=== PATIENT | male | born 1985 | race Caucasian/White ===

== ENCOUNTER 2021-08-04 04:23 | Inpatient (IN) ==
[2021-08-04] MEDS ORDERED: MoRPHine SULFATE 4 MG/ML 1 ML CARP\\VIAL IV STA (05:08)
[2021-08-04] MEDS ORDERED: ACETAMINOPHEN 1,000 MG/100 ML VIAL IV STA (05:08)
[2021-08-04] MEDS ORDERED: PROCHLORPERAZINE 1 ML IV ONE (05:08)
[2021-08-04] MEDS ORDERED: diphenhydrAMINE 50 MG/ML VIAL IV STA (05:08)
[2021-08-04] MEDS ORDERED: SODIUM CHLORIDE 0.9% 1000ML 1,000 ML IV SCH (05:15)
[2021-08-04 05:38] LABS: Albumin Globulin Ratio 0.8 (0.9-2); Albumin Level 3.4 gm/dl (3.4-5.0); BUN Creatinine Ratio 12.5 (10-20); Bilirubin,Total 0.3 mg/dl (0.2-1); Calcium 8.9 mg/dl (8.5-10.1); Creatinine Clr Calc Pharmacy 132.8 ml/min; Est GFR (African American) 119.7 ml/min; Est GFR (Non-African American) 103.3 ml/min; Globulin 4.5 gm/dl (2.5-4.0); Potassium 3.6 mmol/L (3.5-5.1); Total Protein 7.9 gm/dl (6.4-8.2)
[2021-08-04 06:14] LABS: Lyme Ab IgM w/WB Rflx Negative (Negative)
[2021-08-04 06:19] LABS: Lyme Ab IgG w/WB Rflx Positive (Negative)
--- NOTE | 2021-08-04 06:57 | CT Scan Report ---
CT head/brain wo con CLINICAL HISTORY: 36 years-old Male with Headache. Acute headache TECHNIQUE: Multiple axial CT images of the head were obtained without contrast. A dose lowering tech nique was utilized adhering to the principles of ALARA. CT DOSE: 729.78 mGycm COMPARISON: None. FINDINGS: No acute intracranial hemorrhage, midline shift, intracranial mass, hydrocephalus, territorial ischem ia or abnormal extra-axial collection. The calvarium is intact. Large bilateral mastoid effusions. Fluid is also noted within the middle ea r cavities bilaterally. IMPRESSION: 1. No acute intracranial abnormality. 2. Large bilateral mastoid and middle ear effusions. ACT 112: Negative or not required by law. The above report was generated using voice recognition software. It may contain grammatical, syntax o r spelling errors. Electronically signed by: Kaleb Pollock M.D. 08/04/2021 6:55 AM
[2021-08-04 07:01] LABS: Basophils # (auto) 0.02 K/uL (0-0.2); Basophils % (auto) 0.1 %; Hematocrit (blood only) 38.7 % (42-52); Hemoglobin 13.7 g/dL (14.0-18.0); Immature Granulocytes # (auto) 0.04 K/uL (0.00-0.02); Immature Granulocytes % (auto) 0.2 %; Lymphocytes # (auto) 0.85 K/uL (1.2-3.4); Lymphocytes % (auto) 5.3 %; Mean Corpuscular Hgb Conc 35.4 g/dL (32-36); Mean Corpuscular Volume 81.8 fL (80-100); Mean Platelet Volume 8.4 fL (7.4-10.4); Monocytes % (auto) 3.7 %; Neutrophils # (auto) 14.61 K/uL (1.4-6.5); Neutrophils % (auto) 90.7 %; Platelet Count 165 K/uL (130-400); RDW Coefficient of Variation 13.7 % (11.5-14.5); RDW Standard Deviation 41.6 fL (36.4-46.3); Red Blood Count 4.73 M/uL (4.7-6.1); White Blood Count 16.12 K/uL (4.8-10.8)
[2021-08-04] MEDS ORDERED: cefTRIAXone SODIUM 2,000 MG/70 ML BAG IV STA (07:01)
[2021-08-04] MEDS ORDERED: VANCOMYCIN HCL 2,250 MG in SODIUM CHLORIDE 0.9% 500 ML IV ONE (09:17)
[2021-08-04] MEDS ORDERED: VANCOMYCIN CONSULT ACTIVE PRN (09:17)
[2021-08-04] MEDS ORDERED: SODIUM CHLORIDE 0.9% 1000ML 1,000 ML IV ONE ×2 (09:20→10:44)
--- NOTE | 2021-08-04 09:30 | Emergency Department Note ---
ED Visit Note ED Physician Sign Out Note: 36 yr old male with reported baseline intellectual disability with chronic ear effusions and episode meningitis treated at [facility] last year. Rapidly worsening headache and illness brought him to ED last night with mother. Initially signed out by evening team to Contreras Vasquez PA-C pending waking up and going home following medications. Reportedly initial work-up was concerning for lyme infection and given Rocephin 2gm IV along with morphine/compazine/benadryl. Did have labs showing WBC [address] head which was reported negative. Brought to my attention by NICOLE Vasquez as patient febrile and confused at around 9:30am. I immediately went to go evaluate patient. On exam he is al tered and mother notes not acting himself. Did just receive Compazine, morphine and benadryl so discussed with mother the fact difficult to determine status with meds on board. Unable to assess for nuchal rigidity nor photophobia. He is not very cooperative however and continues to role any time I attempt to position him. He appears septic and I have high suspicion for Meningitis. He had already received 2gm IV Rocephin by earlier provider but as now febrile I feel initiating sepsis work-up indicated. I requested 2nd IV, 2L NSS bolus, Blood cultures, Lactate, procalcitonin, and IV Vancomycin. Further added Acyclovir given initial concerns inability to safely get LP in ED. Furthermore given effusions and acute meningitis, will start Steroids despite rocephin having already been started. I will note that on my initial evaluation he was a bit too agitated to do LP safely without sedation thus initially held off. The plan was to treat as meningitis and get LP by [facility] under anesthesia. Unfortunately unable to place in ICU until LP is completed. Called [facility] but they are unable to do LP for several hours due to other critical procedures. I did discuss patient at bedside with Hospitalist, and given worsening crackles in lungs went ahead with cxr with no acute findings. Reviewed with nursing and Hospitalist and will start BiPAP and at same time given ativan to calm him down some. I was able to keep him comfortable enough that he would stay still with right lateral decubitus position as long as nursing held him in place. LP complete by me though I will note there was significant difficultly due to inability for patient to fully arch back and his low back body habitus, but CSF was obtained on first attempt. CSF clearly cloudy and infected by visual inspection, and we continued with Sepsis/Meningitis management, including further IV fluids. Attempted to contact ICU without success thus re-discussed with Hospitalist, who will plan on placing in ICU due to severity of illness. I did re-evaluated him after initial fluid bolus, and due to continued dry ordered further IV fluids. Repeat Lactate was ordered for continued management and evaluation (which retur beverly higher, though already at ICU thus I made hospitalist aware). Continuation of fluids and close monitoring and he is tolerating BiPAP other than a bit somnolent following ativan. Sats good and he was transferred to ICU for further management. Procedure: Lumbar Puncture Indication: Sepsis with concern Meningitis. I was unable to get verbal consent as patient is too altered and I am unable to get in contact with mother who had been in the room just prior to this. However, after discussion with multiple providers, the risks do not outweigh the benefits of determining if this is truly meningitis. At this time, the risks of the procedure are less than the risks of NOT performing the procedure. A time out was taken and the correct patient and site identified. The patient was placed in the right lateral decubitus position and the back was prepped with betadine and draped in the standard fashion. The L3 intervertebral space was identified, anesthetized locally with 1% lidocaine without epinephrine, and the spinal needle was inserted through the skin with the bevel parallel to the dural fibers. The needle was carefully advanced into the lumbar cistern and 4 tubes of cloudy CSF was obtained. The stylet was replaced and the needle was removed. The patient was placed in the supine position. The patient tolerated the procedure well and there were no complications. Critical Care: I have personally spent 90 minutes of critical care time in the direct management of this patient. AMS and Sepsis secondary to strep pne meningitis. This was a life/limb threatening event. This 90 minutes is in excess of all separately billable procedures. Nithin Barone MD
[2021-08-04] MEDS ORDERED: SODIUM CHLORIDE 0.9% 1000ML 2,000 ML IV ONE (09:32)
[2021-08-04] MEDS ORDERED: dexAMETHasone**PF** 10 MG/ML VIAL IV ONE (09:50)
[2021-08-04] MEDS ORDERED: ACYCLOVIR SOD IV STA (09:53)
[2021-08-04] MEDS ORDERED: DEXTROSE 5% IV STA (09:53)
--- NOTE | 2021-08-04 10:20 | History & Physical Report ---
Date of Service August 04, 2021 Assessment & Plan (1) Meningitis: Plan: - Admit to PCU - He is difficult to perform LP on at bedside due to intellectual disability and scoliosis of the spine. If warranted he would likely require sedation and IR procedure for LP per the ER. Possibly could trial ativan prior to LP. Will place on bipap with acute respiratory distress of increased tachypnea, diaphoresis, lethargy. It is also possible that this would be an aseptic tap as he had received Rocephin prior to procedure. Follow blood cultures however got rocephin before these were drawn as well. - Order LP - discussed with ER who is willing to perform procedure with sedation of the patient - CT head reviewed showing large bilateral mastoid and middle ear effusions. - CXR is showing minimal right basilar opacity. This favors atelectasis. An infectious process could appear similar. - concern for worsening respiratory status and possible pneumonia. - Continue rocephin, vancomycin, acyclovir and decadron - Discussed with Dr. Pickering with ICU - obtain LP, continue supportive therapy, at this time not accepted to ICU. Will maintain communication and re-eval if worsening presentation. Appreciate recs. - Noted leukocytosis with left shift - Febrile in the ER at 39.5 - COVID-19 negative on admission (2) Acute respiratory distress: Plan: - Obtain ABG, lactic acid elevated at 3.8, repeat pending - Place pt on bipap - As above (3) Lyme disease: Plan: - Positive IgM on titre, negative IgM - No hx of treatment of such, continue treatment as above - LP pending (4) Headache: Plan: - As above. (5) Acute effusion of both middle ears: Plan: - Treatment as above - hx of chronic ear infections per sign out from ER - Unknown previous hospital course for meningitis. (6) Intellectual disability: Plan: - Chronic. DVT ppx: teds, heparin subq CODE: Full - I have attempted to contact the patients mother via phone at least 3 times this morning and unable to reach her or leave a voicemail on her phone. No other number listed in the chart. Will attempt to reach her again later today. Dispo: From home, likely to remain in hospital x 2 days History of Present Illness Chief Complaint: Head pain Primary Care Provider: NO PCP This is a 36 yo M with PMHx of intellectual disability and hx of meningitis about 1 year ago, who presents to the hospital with his mother who is no longer at bedside, with complaints of head pain. Pt is unable to provide history based on lethargy and tachypnea. He is diaphoretic, RR of 45 at bedside, sats are in low 90s. BP elevated at 160s/80s. He cannot provide any history or ROS. Lyme titre is noted to be positive on admission. WBC is elevated at 16 K, with a left shift, febrile at 39.5 since being here, but was not febrile at home per report from ER. Started on rocephin initially overnight for Lymes and blood culture were drawn after antibiotic given. CT of the head shows large bilateral mastoid effusions and middle ear effusion--with presentation it is concerning for meningitis. Unknown if viral versus bacterial at this time. Right lung treviño with coarse rales throughout concerning for pneumonia. Will obtain LP with sedation due to intellectual disability. Attempted to speak with mother via phone, did not answer on 3 different phone call attempts, and there is not a voice mail set up to leave a message. Allergies Allergy/AdvReac Type Severity Reaction Status Date / Time No Known Allergies Allergy Verified 08/04/21 13:27 Home Medications Medication Instructions Recorded Confirmed Type doxycycline hyclate 100 mg capsule 100 mg PO BID 28 Days #56 cap 08/04/21 Rx Past Med/Surg History Social History Smoking Status: Current every day smoker Tobacco Type: Cigarettes Current Living Situation: Family Feels Safe at Home: Yes Review of Systems Review of Systems: Unobtainable due to cognitive status Physical Exam Physical Exam: General: lethargic, arouses slightly with loud speech and sternal rub, diaphoretic, mild distress, obese with BMI 33.8 Head: Normocephalic, atraumatic ENT: PERRL, EOMI, no pharyngeal exudate, mucous membranes moist Chest: Tachypneic with RR 45 with O2 sats 94% at bedside, on room air, coarse rales on R lung treviño, left is essentially clear. Cardiac: +tachycardic with HR 95, no murmur, no JVD, normal peripheral pulses, good capillary refill Abdominal: NABS x 4 quadrants, soft, nondistended, nontender to palpation, no rebound or guarding Extremities: Normal inspection, no peripheral edema or erythema, calfs nontender to palpation Psych: Unable to assess due to lethargy Neuro: Lethargic, not alert or awake, arouses slightly with loud speech and sternal rub Results & Data Results & Data ([facility]) Vital Signs (Past 12 Hours) Vital Signs Temp Pulse Pulse Resp BP BP Pulse Ox 08/04/21 09:57 67 16 143/68 H 95 08/04/21 08:42 39.5 C H 80 26 H 149/65 H 97 08/04/21 07:10 94 H 20 160/71 H 95 08/04/21 06:15 96 H 20 181/81 H 97 08/04/21 04:28 37.1 C 84 22 148/79 H 98 Laboratory Results 08/04/21 08/04/21 08/04/21 09:54 09:54 06:47 WBC RBC Hgb Hct MCV MCH MCHC RDW Std Deviation RDW Coeff of Abel Plt Count MPV Immature Gran % (Auto) Neut % (Auto) Lymph % (Auto) [place] % (Auto) Eos % (Auto) Baso % (Auto) Neut # (Auto) Lymph # (Auto) [place] # (Auto) Eos # (Auto) Baso # (Auto) Immature Gran # (Auto) Absolute Nucleated RBC Nucleated RBC % (auto) Neutrophils % (Manual) Band Neutrophils % Lymphocytes % (Manual) Prolymphocyte % Reactive Lymphs % (Man) Monocytes % (Manual) Eosinophils % (Manual) Basophils % (Manual) Metamyelocytes % (Man) Myelocytes % (Man) Promyelocytes % (Man) Blast Cells % (Manual) Plasma Cell % (Manual) Other Cells % Nucleated RBC % Neutrophils # (Manual) Band Neutrophils # Total Absolute Neuts Lymphocytes # (Manual) Prolymphocyte # Reactive Lymphs # Total Abs Lymphocytes Monocytes # (Manual) Eosinophils # (Manual) Basophils # (Manual) Metamyelocytes # (Man) Myelocytes # (Manual) Promyelocytes # (Man) Blast Cells # (Man) Plasma Cell # (Manual) Other Cells # Nucleated RBCs # (Man) Hypersegmented Neuts Hyposegmented Neuts Hypogranular Neuts Large Granular Lymphs # Lrg Granular Lymphs Hairy Cells Smudge Cells Toxic Granulation Toxic Vacuolation Dohle Bodies Ruben Rods Platelet Estimate Hypogranular Platelets Clumped Platelets Giant Platelets Platelet Satelliting RBC Morphology Polychromasia Hypochromasia Poikilocytosis Basophilic Stippling Anisocytosis Microcytosis Macrocytosis Spherocytes Pappenheimer Bodies Sickle Cells Target Cells Tear Drop Cells Ovalocytes Stomatocytes [place] Bodies Echinocytes Acanthocytes (Spur) Rouleaux RBC Agglutinates Schistocytes RBC Morph Comment Sezary Cell Sodium Potassium Chloride Carbon Dioxide Anion Gap BUN Creatinine Est Cr Clr Drug Dosing Est GFR ( Amer) Est GFR (Non-Af Amer) BUN/Creatinine Ratio Glucose Lactate 3.8 H* Calcium Total Bilirubin AST ALT Alkaline Phosphatase Total Creatine Kinase 33 L Total Protein Albumin Globulin Albumin/Globulin Ratio Procalcitonin 0.10 Specimen Hemolysis Lyme Disease IgG Ab Lyme Disease IgM Ab COVID-19 Eval Order SARS-CoV-2 (PCR) 08/04/21 08/04/21 08/04/21 06:40 05:38 05:38 WBC 16.12 H RBC 4.73 Hgb 13.7 L Hct 38.7 L MCV 81.8 MCH 29.0 MCHC 35.4 RDW Std Deviation 41.6 RDW Coeff of Abel 13.7 Plt Count 165 MPV 8.4 Immature Gran % (Auto) 0.2 Neut % (Auto) 90.7 Lymph % (Auto) 5.3 [place] % (Auto) 3.7 Eos % (Auto) 0.0 Baso % (Auto) 0.1 Neut # (Auto) 14.61 H Lymph # (Auto) 0.85 L [place] # (Auto) 0.60 H Eos # (Auto) 0.00 Baso # (Auto) 0.02 Immature Gran # (Auto) 0.04 H Absolute Nucleated RBC Nucleated RBC % (auto) Neutrophils % (Manual) Band Neutrophils % Lymphocytes % (Manual) Prolymphocyte % Reactive Lymphs % (Man) Monocytes % (Manual) Eosinophils % (Manual) Basophils % (Manual) Metamyelocytes % (Man) Myelocytes % (Man) Promyelocytes % (Man) Blast Cells % (Manual) Plasma Cell % (Manual) Other Cells % Nucleated RBC % Neutrophils # (Manual) Band Neutrophils # Total Absolute Neuts Lymphocytes # (Manual) Prolymphocyte # Reactive Lymphs # Total Abs Lymphocytes Monocytes # (Manual) Eosinophils # (Manual) Basophils # (Manual) Metamyelocytes # (Man) Myelocytes # (Manual) Promyelocytes # (Man) Blast Cells # (Man) Plasma Cell # (Manual) Other Cells # Nucleated RBCs # (Man) Hypersegmented Neuts Hyposegmented Neuts Hypogranular Neuts Large Granular Lymphs # Lrg Granular Lymphs Hairy Cells Smudge Cells Toxic Granulation Toxic Vacuolation Dohle Bodies Ruben Rods Platelet Estimate Hypogranular Platelets Clumped Platelets Giant Platelets Platelet Satelliting RBC Morphology Polychromasia Hypochromasia Poikilocytosis Basophilic Stippling Anisocytosis Microcytosis Macrocytosis Spherocytes Pappenheimer Bodies Sickle Cells Target Cells Tear Drop Cells Ovalocytes Stomatocytes [place] Bodies Echinocytes Acanthocytes (Spur) Rouleaux RBC Agglutinates Schistocytes RBC Morph Comment Sezary Cell Sodium Potassium Chloride Carbon Dioxide Anion Gap BUN Creatinine Est Cr Clr Drug Dosing Est GFR ( Amer) Est GFR (Non-Af Amer) BUN/Creatinine Ratio Glucose Lactate Calcium Total Bilirubin AST ALT Alkaline Phosphatase Total Creatine Kinase Total Protein Albumin Globulin Albumin/Globulin Ratio Procalcitonin Specimen Hemolysis Lyme Disease IgG Ab Lyme Disease IgM Ab COVID-19 Eval Order Covid19 at [facility] SARS-CoV-2 (PCR) NEGATIVE 08/04/21 08/04/21 08/04/21 04:56 04:56 04:56 WBC Cancelled RBC Cancelled Hgb Cancelled Hct Cancelled MCV Cancelled MCH Cancelled MCHC Cancelled RDW Std Deviation Cancelled RDW Coeff of Abel Cancelled Plt Count Cancelled MPV Cancelled Immature Gran % (Auto) Cancelled Neut % (Auto) Cancelled Lymph % (Auto) Cancelled [place] % (Auto) Cancelled Eos % (Auto) Cancelled Baso % (Auto) Cancelled Neut # (Auto) Cancelled Lymph # (Auto) Cancelled [place] # (Auto) Cancelled Eos # (Auto) Cancelled Baso # (Auto) Cancelled Immature Gran # (Auto) Cancelled Absolute Nucleated RBC Cancelled Nucleated RBC % (auto) Cancelled Neutrophils % (Manual) Cancelled Band Neutrophils % Cancelled Lymphocytes % (Manual) Cancelled Prolymphocyte % Cancelled Reactive Lymphs % (Man) Cancelled Monocytes % (Manual) Cancelled Eosinophils % (Manual) Cancelled Basophils % (Manual) Cancelled Metamyelocytes % (Man) Cancelled Myelocytes % (Man) Cancelled Promyelocytes % (Man) Cancelled Blast Cells % (Manual) Cancelled Plasma Cell % (Manual) Cancelled Other Cells % Cancelled Nucleated RBC % Cancelled Neutrophils # (Manual) Cancelled Band Neutrophils # Cancelled Total Absolute Neuts Cancelled Lymphocytes # (Manual) Cancelled Prolymphocyte # Cancelled Reactive Lymphs # Cancelled Total Abs Lymphocytes Cancelled Monocytes # (Manual) Cancelled Eosinophils # (Manual) Cancelled Basophils # (Manual) Cancelled Metamyelocytes # (Man) Cancelled Myelocytes # (Manual) Cancelled Promyelocytes # (Man) Cancelled Blast Cells # (Man) Cancelled Plasma Cell # (Manual) Cancelled Other Cells # Cancelled Nucleated RBCs # (Man) Cancelled Hypersegmented Neuts Cancelled Hyposegmented Neuts Cancelled Hypogranular Neuts Cancelled Large Granular Lymphs Cancelled # Lrg Granular Lymphs Cancelled Hairy Cells Cancelled Smudge Cells Cancelled Toxic Granulation Cancelled Toxic Vacuolation Cancelled Dohle Bodies Cancelled Ruben Rods Cancelled Platelet Estimate Cancelled Hypogranular Platelets Cancelled Clumped Platelets Cancelled Giant Platelets Cancelled Platelet Satelliting Cancelled RBC Morphology Cancelled Polychromasia Cancelled Hypochromasia Cancelled Poikilocytosis Cancelled Basophilic Stippling Cancelled Anisocytosis Cancelled Microcytosis Cancelled Macrocytosis Cancelled Spherocytes Cancelled Pappenheimer Bodies Cancelled Sickle Cells Cancelled Target Cells Cancelled Tear Drop Cells Cancelled Ovalocytes Cancelled Stomatocytes Cancelled [place] Bodies Cancelled Echinocytes Cancelled Acanthocytes (Spur) Cancelled Rouleaux Cancelled RBC Agglutinates Cancelled Schistocytes Cancelled RBC Morph Comment Cancelled Sezary Cell Cancelled Sodium 137 Potassium 3.6 Chloride 107 Carbon Dioxide 25 Anion Gap 5.0 BUN 12 Creatinine 0.95 Est Cr Clr Drug Dosing 132.8 Est GFR ( Amer) 119.7 Est GFR (Non-Af Amer) 103.3 BUN/Creatinine Ratio 12.5 Glucose 131 H Lactate Calcium 8.9 Total Bilirubin 0.3 AST 13 L ALT 13 Alkaline Phosphatase 86 Total Creatine Kinase Total Protein 7.9 Albumin 3.4 Globulin 4.5 H Albumin/Globulin Ratio 0.8 L Procalcitonin Specimen Hemolysis Lyme Disease IgG Ab Positive A Lyme Disease IgM Ab Negative COVID-19 Eval Order SARS-CoV-2 (PCR) Diagnostic Findings Head CT 08/04/21 05:08 CT head/brain wo con CLINICAL HISTORY: 36 years-old Male with Headache. Acute headache TECHNIQUE: Multiple axial CT images of the head were obtained without contrast. A dose lowering technique was utilized adhering to the principles of ALARA. CT DOSE: 729.78 mGycm COMPARISON: None. FINDINGS: No acute intracranial hemorrhage, midline shift, intracranial mass, hydrocephalus, territorial ischemia or abnormal extra-axial collection. The calvarium is intact. Large bilateral mastoid effusions. Fluid is also noted within the middle ear cavities bilaterally. IMPRESSION: 1. No acute intracranial abnormality. 2. Large bilateral mastoid and middle ear effusions. ACT 112: Negative or not required by law. The above report was generated using voice recognition software. It may contain grammatical, syntax or spelling errors. Electronically signed by: Kaleb Pollock M.D. 08/04/2021 6:55 AM Chest X-Ray 08/04/21 10:37 XR chest 1V portable CLINICAL HISTORY: Shortness of breath. COMPARISON STUDY: No previous studies for comparison. FINDINGS: Lung volumes are normal. There is minimal right basilar opacity. There is no pneumothorax or pleural effusion. Cardiac size is normal. Mediastinal contours are normal. There is no evidence for pulmonary edema. IMPRESSION: Minimal right basilar opacity. This favors atelectasis. An infectious process could appear similar. ACT 112: Negative or not required by law. Electronically signed by: Arjun Jeffries M.D. 08/04/2021 11:03 AM Code Status & VTE Plan Code Status Full code Supervising Physician Co-Signing Physician Notes Attending Addendum: care coordinated with DL Kern please refer to her notes for full details, I agree with her notes patient seen and examined, records reviewed by myself as well on exam, patient seen resting in bed, not in distress, on Bipap not answering questions, eyes mostly closed but does move around in bed no signs of respiratory distress on Bipap no other symptoms VS noted and reviewed oriented x 0, not in distress, breathing with no effort nor accessory muscle use tachycardic, regular rhythm, no murmurs (+) rales on the right base, clear on the left non distended, soft, nontender no bipedal edema, erythema, warmth no neuro deficits WBC 16.12 Hg 13.7 Crea 0.95 ASSESSMENT AND PLAN SEVERE SEPSIS METABOLIC ENCEPHALOPATHY ACUTE MENINGITIS, STREP PNEUMONIAE POSSIBLE OTITIS MEDIA, MASTOIDITIS - s/p Lumbar Puncture - sepsis protocol - ff up CSF, Blood cultures - on Vanco + Ceftriaxone Dexamethasone POSSIBLE RIGHT SIDED PNEUMONIA - on Bipap - continue antibiotics as above POSSIBLE LYME DISEASE - ff up Lyme test other diagnoses and plan of care as per DL Lai notes Danish Hinkle MD
--- NOTE | 2021-08-04 11:05 | XRay Report ---
XR chest 1V portable CLINICAL HISTORY: Shortness of breath. COMPARISON STUDY: No previous studies for comparison. FINDINGS: Lung volumes are normal. There is minimal right basilar opacity. There is no pneumothorax or pleural effusion. Cardiac size is normal. Mediastinal contours are normal. There is no evidence fo r pulmonary edema. IMPRESSION: Minimal right basilar opacity. This favors atelectasis. An infectious process could appe ar similar. ACT 112: Negative or not required by law. Electronically signed by: Arjun Jeffries M.D. 08/04/2021 11:03 AM
[2021-08-04] MEDS ORDERED: LORazepam 2 MG/4 ML VIAL IV STA (11:17)
[2021-08-04 11:39] LABS: Base Excess ABG -1.9 mEq/L (-9-1.8); HCO3 ABG 21 mmol/L (19-24); Oxygen Saturation ABG 96.7 % (90-95); PCO2 ABG 30 mmHg (35-46); PO2 ABG 80 mmHg (80-95); pH ABG 7.46 (7.35-7.45)
[2021-08-04 11:41] LABS: Allen Test Pos (Pos)
[2021-08-04 12:22] LABS: CSF Chemistry Tube # 2
[2021-08-04 12:40] LABS: Appearance Urine Clear (Clear); Bacteria Urine Automated 2+ (Negative); Bilirubin Urine Negative (Negative); Blood Urine 1+ (Negative); Color Urine Yellow; Glucose Urine UA Negative (Negative); Ketones Urine Negative (Negative); Leukocyte Esterase Urine 1+ (Negative); Nitrite Urine Positive (Negative); Protein Urine Negative (Negative); RBC Urine Automated 0-4 /hpf (0-4); Specific Gravity Urine 1.016 (1.000-1.030); Urobilinogen Urine Negative (Negative); pH Urine 5.5 (4.5-7.5)
[2021-08-04 12:44] LABS: CSF Glucose < 1 mg/dl (40-70)
[2021-08-04 12:49] LABS: Total Protein CSF 908.1 mg/dl (15-45)
[2021-08-04 12:55] LABS: Appearance CSF Cloudy; CSF Count Tube # 3; Color CSF Yellow
[2021-08-04 12:56] LABS: CSF Xanthrochromic No xanthochromia
[2021-08-04 12:57] LABS: Red Blood Cell CSF (A) 330 /uL (0-); Red Blood Cell CSF (B) 280 /uL (0-)
[2021-08-04 12:59] LABS: White Blood Cell CSF (A) 8500 /uL (0-5)
[2021-08-04 13:43] LABS: Cryptococcus neoformans/ga PCR Not Detected (NotDetected); Cytomegalovirus PCR Not Detected (NotDetected); Enterovirus PCR Not Detected (NotDetected); Escherichia coli K1 PCR Not Detected (NotDetected); Haemophilius influenzae PCR Not Detected (NotDetected); Herpes Simplex Virus 1 PCR Not Detected (NotDetected); Herpes Simplex Virus 2 PCR Not Detected (NotDetected); Human Herpes Virus 6 PCR Not Detected (NotDetected); Human Parechovirus PCR Not Detected (NotDetected); Listeria monocytogenes PCR Not Detected (NotDetected); Neisseria meningitidis PCR Not Detected (NotDetected); Streptococcus agalactiae PCR Not Detected (NotDetected); Varicella Zoster Virus PCR Not Detected (NotDetected)
[2021-08-04 14:00] LABS: Streptococcus pneumoniae PCR DETECTED (NotDetected)
[2021-08-04] MEDS ORDERED: ICU PROTOCOL FOR HYPERGLYCEMIA PRN (14:06)
[2021-08-04] MEDS: SODIUM CHLORIDE 0.9% 1000ML 1,000 ML IV SCH ×2 (14:06→20:19)
[2021-08-04] MEDS ORDERED: ACETAMINOPHEN 325 MG TAB PO PRN (14:06)
[2021-08-04] MEDS ORDERED: ONDANSETRON INJ 2 MG/ML 2 ML VIAL IV PRN (14:06)
--- NOTE | 2021-08-04 14:39 | Critical Care Consultation ---
Date of Consultation August 04, 2021 Assessment & Plan (1) Acute respiratory distress: Reason Critically Ill: This is a 36-year-old gentleman with a history of intellectual disability as well as previous meningitis, treated at [facility], who presented to [facility] with his mother for altered mental status and head pain, found to have laboratories and imaging concerning for S. pneumoniae meningitis. Neuro - [facility] ICU: POSITIVE Sedation: None Analgesia: Tylenol 1000mg IV q8h p.r.n., morphine 2mg IV q4h Encephalopathy * Responsive to painful stimuli on exam. * Secondary to acute bacterial meningitis and sepsis -- see ID below * Likely compounded, at present, by Ativan and morphine needed in the ED * No significant lyte or hematologic abnormalities at this time Cardiac - Tachycardia * Suspect secondary to sepsis and inflammatory state in setting of meningitis * Appearing euvolemic, lytes consistent with the same * Continue sepsis management and NSS @ 150 Respiratory - Tachypnea / Respiratory Distress / Respiratory Alkalosis * CXR revealing of a small R basilar opacity - otherwise clear * Early during presentation, developed tachypnea (up to rates of 45) without hypoxia. Put on BiPAP * ABG revealing of pH 7.46 / pCO2 30 / HCO3 21 - no gap - c/w respiratory alkalosis * Suspect likely secondary to hyperventilation in setting of pain, meningitis. * Transition to RA/NC p.r.n. from BiPAP. Pain control. Fluids. Bilateral Mastoid and Inner Ear Effusions * Appreciated, but limited, on CT-H -- AOM appreciated on exam, too * Suspect this is likely etiology of his meningitis. Unclear at this time if he may have a superimposed mastoiditis, too. * Unfortunately past medical history is largely unknown right now. Seeing as this is a recurrence, do question whether or not an immunodeficiency may be at play. * Reached out to Dr. Rodriguez, ENT, to discuss situation and need for possible procedural intervention (i.e., myringectomy or mastoid intervention). -- Obtain dedicated CT of the sinuses, non-contrast. Ordered. GI - * NPO. Will require speech evaluation prior to diet resumption, when appropriate. RENAL/LYTES - Respiratory Alkalosis - as noted above. * No acute needs otherwise. Monitor BMP. - * Berman catheter. Monitor I&Os. ENDO - * No known history of endocrinologic diseases. ICU hyperglycemia protocol. HEME - * H&H stable. Monitor. ID - Bacterial Meningitis -- PCR positive for Strep. pneumo. * Patient with known history of bacterial meningitis in the past. Unfortunately, details about this are unavailable. * Work-up revealing of the following: - Symptomatically was reporting MENENDEZ and mother said he was not acting himself. - Leukocytosis to 16, left shift. +Lactate. Tm 39.5. BPs stable. - Head CT revealing of large bilateral mastoid and middle ear effusions - LP revealing of significant leukocytosis (8500) with 99% PMNs, undetectably low glucose - BCX, UCX pending - CSF Pathogen Panel: Positive for Streptococcus pneumoniae . Negative otherwise, including cryptococcus. * ID consulted -- appreciate insight and recommendations - Will continue CFTX q12, vancomycin q12, dexamethasone 10mg q6h - Await culture/sensitivities. Recommend ENT consult. * ENT consulted, as above * Consider neurology consultation if clinical picture is deteriorating / to aid in need for serial lumbar punctures / need for drain - appreciate insight and recommendations Sepsis * Secondary to S. pneumoniae meningitis. See work-up above. Lactate peaked at 5.8, now downtrending. Good capillary refill and pulses on exam. * Has received about 5L of fluids since arriving here. UOP adequate - about 0.80mL/kg/hr. Continue NSS for now. Maintain UOP >0.5cc/kg/hr, MAP > 65, BSG ~150-180. * Continue antimicrobial therapy as above * Follow cultures INTEGUMENTARY - No acute needs at this time. LINES/IV ACCESS - PIVs intact. DVT PROPHYLAXIS - Heparin SQ Thank you for allowing us to be part of this patient's care. Please refer to Dr. Pickering's documentation for any further recommendations. (2) Intellectual disability: (3) Meningitis: (4) Headache: (5) Lyme disease: (6) Acute effusion of both middle ears: Supervising Physician Co-Signing Physician Notes Patient seen and examined. Imaging studies independently reviewed. EMR reviewed. Discussed with admitting hospitalist service, in the ER as well as with the critical care bedside nurse and family practice resident. Agree with assessment plan as noted. 36-year-old male with acute bacterial meningitis. PCR positive for strep pneumo. ID consultation is being obtained through locr. He has evidence of bilateral otitis as well as mastoiditis. Will get ID consultation. Continue high-dose Rocephin and dexamethasone. The patient was placed on BiPAP due to respiratory issues but these appear to be driven primarily by his underlying metabolic derangements. We will discontinue BiPAP and use oxygen as needed to maintain saturations. Recheck lactate and follow laboratory studies. Unclear if the patient will require serial large volume lumbar puncture or potential lumbar drain. Would be interested in infectious disease opinion on this. We will also ask neurology regarding their opinion of utility of serial drains and acute purulent bacterial meningitis. Symptomatic control of the patient's fever and headache. Patient may be at risk of obstructive hydrocephalus and will need to be monitored closely. May require serial scans. Continue to follow in the ICU. The patient is critically ill with significant possibility of clinical deterioration. We have been unable to contact family to this point but will continue to try and update them and obtain any additional history. History of Present Illness Attending Physician: Danish Hinkle MD History of Present Illness This is a 36-year-old male with a notable history of intellectual disability as well as meningitis 1 year ago who presented to the hospital initially with his mother for head pain. History is primarily obtained through chart review. Upon his arrival to the hospital, patient was noted to be lethargic, initially afebrile, and mildly hypertensive to the 140/70 range. Early throughout his course, he developed a fever to 39.5, elevated respiratory rate between 26 and 45, with oxygen saturations primarily above 90%. Due to his tachypnea, he was placed on BiPAP. His diagnostics were significant for a leukocytosis to 16 with left shift, lactate 3.8, UA with positive nitrites and leukocyte esterase. Noncontrast head CT did demonstrate large bilateral mastoid and middle ear effusions. Chest x- ray demonstrated a right-sided basilar opacity. Blood and urine cultures were drawn. Have concern for meningitis, patient also underwent urgent LP. This was revealing of cloudy, yellow CSF with profound leukocytosis (over 99% PMN), significantly elevated total protein to 910, and undetectably low glucose. CSF pathogen PCR panel sent, still pending. Lyme IgG positive. Given significant concerns for meningitis, patient was started empirically on vancomycin, acyclovir, and ceftriaxone. At the bedside, Kane is unable to cooperate with exam and resists many exam maneuvers. Unable to obtain history. Allergies Allergy/AdvReac Type Severity Reaction Status Date / Time No Known Allergies Allergy Verified 08/04/21 13:27 Home Medications Medication Instructions Recorded Confirmed Type doxycycline hyclate 100 mg capsule 100 mg PO BID 28 Days #56 cap 08/04/21 Rx Patient History Social History Smoking Status: Current every day smoker Tobacco Type: Cigarettes Feels Safe at Home: Yes Review of Systems Review of Systems: Unobtainable due to cognitive status and Unobtainable due to reduced consciousness Physical Exam Physical Exam: General: Tired and ill-appearing 36-year-old gentleman who is lying back in his hospital bed, somnolent and with occasionally twitches. He is responsive to pain, but not to voice. HEENT: NCAT. Eyes - Sclera are white, anicteric, and without injection. PERRL. Mouth - MMM with no tonsillar edema or exudates. Nose - nasal turbinates are uninflamed and without discharge. Ears - the L and R TMs appear hyperemic and mildly bulging. No TTP posterior to the auricle. No TTP (facial grimces) across the frontal/maxillary sinuses Neck - supple and without LAD. Cardiac: Tachycardic with regular rhythm; S1 and S2 present with no murmurs, rubs, or gallops. Pulmonary: Good respiratory effort with symmetric expansion of the chest. Tachypneic. No use of accessory muscles. Lungs were clear to auscultation bilaterally with no crackles or wheezes. Abdominal: Normoactive bowel sounds. Abdomen was soft, nondistended, and non- tender to palpation. Extremities: Upper and lower extremities are warm and well perfused. Radial and dorsalis pedis pulses were 2+ b/l. Capillary refill assessed in UE was < 3 sec. Neuro: Patient extremely resistant to exam. - Cranial Nerves: CN I, IX, and X - not assessed. II - PERRL. III - Corneal reflex in-tact. XII - no tongue deviation - Motor: Normal tone, without spasticity, in the upper and lower extremities. - Sensation: Unable to assess - Reflexes - Biceps 2+ b/l; patellar 3+ b/l. No clonus. Results & Data Results & Data ([facility]) Vital Signs (Past 12 Hours) Vital Signs Temp Pulse Pulse Resp BP BP Pulse Ox 08/04/21 13:05 38.6 C H 86 16 129/88 97 08/04/21 11:47 94 H 24 114/76 98 08/04/21 11:15 102 H 26 H 129/52 L 97 08/04/21 11:10 93 H 35 H 96 08/04/21 10:54 98 H 46 H 164/80 H 97 08/04/21 10:20 88 26 H 145/72 H 95 08/04/21 09:57 67 16 143/68 H 95 08/04/21 08:42 39.5 C H 80 26 H 149/65 H 97 08/04/21 07:10 94 H 20 160/71 H 95 08/04/21 06:15 96 H 20 181/81 H 97 08/04/21 04:28 37.1 C 84 22 148/79 H 98
[2021-08-04] MEDS ORDERED: ACETAMINOPHEN 1000 MG/100 ML IV IV STA (14:41)
[2021-08-04] MEDS ORDERED: MoRPHine SULFATE 2 MG/ML CARP IV STA (14:51)
--- NOTE | 2021-08-04 14:51 | Pharmacy Report ---
Pharmacy Abx Dose Short Note - Date of Service August 04, 2021 - Assessment & Plan Assessment * 36 year old M w hx of intellectual disability and a hx of meningitis 1 yr ago @ OSH admitted to ICU on 08/04 for confirmed Strep pneumo meningitis per [employer] PCR result. Currently receiving ceftriaxone 2 g IV q12, dexamethasone 10 mg IV q6h x4 days, and vancomycin per pharmacy consult * Lyme IgG positive, IgM negative with CSF Lyme PCR still pending, but less likely given positive Strep pneumo. At any rate, ceftriaxone does have appropriate coverage for Lyme meningitis * ID consulted Vancomycin * Will be aggressive 2nd severity of illness. * Anticipate ability to discontinue if/when CSF culture reveals S. pneumo sensitivities, although LP was obtained after ceftriaxone was initiated due to difficulty 2nd intellectual disability and scoliosis. Therefore culture results may not be available in which case ceftriaxone and vancomycin dual therapy may need to be continued for the duration of treatment. ID consulted * Loading dose in ED * Will continue with 14 mg/kg IV q8h * Trough prior to 4th overall dose Plan * Vancomycin 1500 mg IV q8h * Trough 08/05 @ 0930 Pharmacy will continue to follow and will adjust dose/frequency as necessary. Thank you.
[2021-08-04] MEDS: dexAMETHasone 10 MG in SYRINGE 0 ML IV SCH ×2 (15:32→20:21)
--- NOTE | 2021-08-04 16:02 | Emergency Department Note ---
ED Visit Note 36-year-old male whose care was transferred to [place] from Josemanuel Sales PA-C at change of shift. The patient presented to the emergency department with c omplaint of a headache and ear pain since yesterday. According to Mr. Sales, the mother who is with the patient reports that the patient has a history of chronic recurrent ear effusions. She was concerned that he had another ear infection, therefore brought the patient to the emergency department for further evaluation. At the time of transfer of care, the patient had extensive work-up performed, including a CT of the head that was normal. He also had lab work showing a leukocytosis, and a positive Lyme IgG. The patient was administered IV Rocephin, along with IV morphine, Benadryl and Compazine for his headache. At the time of transfer of care, the patient was too sedate for the mother to feel comfortable taking him home, and care was transferred to ak for further observation and hopefully discharge home with antibiotics and PCP follow-up. At approximately 9:00 AM, one of the emergency department technicians came to me and advised me that the patient's temperature was 39.5 C, and was still very sedated, with staff unable to fully arouse the patient. With a quick assessment, the patient was hemodynamically stable, and was agitated with any attempts at repositioning him in the bed. He is also noted to have severe scoliosis. Patient has a history of baseline intellectual disability, therefore communication with the patient was not possible. The mother was also not pres ent at the time of my evaluation. At this point, I discussed the case further with Dr. Barone, ED attending physician, who recommended a sepsis work-up. I entered necessary lab work, including blood cultures x2, lactate and procalcitonin. Conversation was also had with Dr. Barone and our ED pharmacist, with recommendations for IV vancomycin, Decadron and acyclovir. The patient was ordered and administered an additional 2 L normal saline bolus. At this point, Dr. Barone assumed care of the patient. Please see his dictation for further treatment provided. The patient was ultimately admitted with concerns for meningitis. DIAGNOSIS: 1. Sepsis 2. Headache 3. Bilateral ear effusions .
[2021-08-04] MEDS ORDERED: LORazepam 1 MG/2 ML VIAL IV STA (16:13)
--- NOTE | 2021-08-04 16:18 | Billing Data ---
Date of Service August 04, 2021 Coding Level of Care Code Critical Care 1st 30-74 mins Time Spent (min) 50 Comment 50 minutes critical care time managing life-threatening illness
[2021-08-04] MEDS: VANCOMYCIN HCL 1,500 MG in SODIUM CHLORIDE 0.9% 500 ML IV SCH (17:51)
[2021-08-04] MEDS ORDERED: STAT IV Infusion **Titration per Protocol STA (18:22)
[2021-08-04] MEDS ORDERED: LORazepam 1 MG/2 ML VIAL IV ONE (18:23)
--- NOTE | 2021-08-04 18:29 | ENT Consultation ---
Date of Consultation August 04, 2021 Assessment & Plan (1) Meningitis: (2) Left acute otitis media: (3) Right serous otitis media: The patient has a history, imaging, and exam consistent with S. pneumo meningitis. He has a L AOM and R OME, which may be the source of his meningitis. There are no clinical signs of mastoiditis. He is febrile and tachycardic, although improving on IV abx. His mental status is altered, and a bedside myringotomy is not safe given his level of cooperation. I have recommended bilateral myringotomy and tube placement in the OR. Risks and benefits including tube otorrhea, tube blockage or extrusion requiring early replacement, perforation, hearing loss, cholesteatoma were discussed with the patient's mother (Love Adams [phone]) and she agreed to proceed. Informed consent obtained. Will plan for OR in AM. -Continue IV abx per CCM -CT IAC without contrast to evaluate for mastoiditis/bony erosion -Continue NPO -BM+T in AM, will obtain cultures -Will continue to follow History of Present Illness Attending Physician: Danish Hinkle MD History of Present Illness 36yM seen for evaluation of AOM in setting of meningitis. History obtained from chart due to patient's clinical status and no family at bedside/available by phone. Patient has a history of previous meningitis and recurrent middle ear effusions. Seen in the ED for otalgia and headache, initially for discharge but developed AMS and fever. LP consistent with bacterial S. pneumonia meningitis. WBC 16. CT head showed bilateral middle ear effusions and mastoid effusions. Admitted to the ICU, begun on IV abx. Allergies Allergy/AdvReac Type Severity Reaction Status Date / Time No Known Allergies Allergy Verified 08/04/21 13:27 Home Medications Medication Instructions Recorded Confirmed Type doxycycline hyclate 100 mg capsule 100 mg PO BID 28 Days #56 cap 08/04/21 Rx Patient History Social History Smoking Status: Current every day smoker Tobacco Type: Cigarettes Current Living Situation: Family Feels Safe at Home: Yes Review of Systems Review of Systems: Unable to obtain ROS due to patient's mental status Physical Exam Physical Exam: General: The patient is well-developed, well-nourished. Agitated, confused, unable to answer questions. Head and Face: Skull: No obvious deformities Salivary glands: The parotid and submandibular glands are normal in appearance and there are no masses on palpation. Symmetric grimace Eyes: Eyelids: There is no periorbital edema. Conjunctiva: There is no conjunctival erythema. Pupils: The pupils are equal, round, and reactive to light. Extraocular muscles: unable to assess Nystagmus: There is no nystagmus. Ears: Right auricle: The pinna is normally formed without skin lesion or mass. No postauricular erythema, bulging, fluctuance, warmth, proptosis Left auricle: The pinna is normally formed without skin lesion or mass. No postauricular erythema, bulging, fluctuance, warmth, proptosis Right EAC: There is no external auditory canal erythema, edema, lesion, or mass. Left EAC: There is no external auditory canal erythema, edema, lesion, or mass. Right TM/middle ear: TM is intact without perforation. There is a dull ellis middle ear effusion Left TM/middle ear: TM is intact without perforation, opaque inferiorly with a middle ear infection, minimal erythema and no bulging Nose: External: There is no gross external deformity, tenderness, or skin lesion or mass. Mucosa: There is no nasal mucosal edema, inflammation, lesion, or mass. Septum: The nasal septum is midline. Nasal cavity: There is no inferior turbinate hypertrophy Oral cavity/Oropharynx: Lips: There are no lip lesions or masses. Oral cavity: There is no inflammation, lesion, or mass involving the gums, gingiva, floor of mouth, buccal mucosa, retromolar trigone, hard palate, soft palate, tongue. Edentulous. Dry oral mucosa Neck: General: There are no visible scars or lesions involving the neck. There are no visible or palpable masses involving the neck. The trachea is midline. Lymph nodes: There is no visible or palpable neck lymphadenopathy. Respiratory/Pulmonary: There is no stertor or stridor. There is normal respiratory effort without acute distress. Cardiovascular: There is no visible extremity edema. Skin: There are no visible lesions or masses involving the skin of the head and neck region. 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 Psychiatric: Mental status: The patient is altered, unable to answer questions, thrashing. Results & Data ([facility]) Vital Signs (Past 12 Hours) Vital Signs Temp Pulse Pulse Resp BP BP Pulse Ox 08/04/21 18:01 38.1 C H 87 27 H 133/73 97 08/04/21 17:00 38.1 C H 101 H 26 H 139/82 96 08/04/21 16:00 38.9 C H 88 34 H 163/83 H 95 08/04/21 15:00 39.2 C H 97 H 29 H 140/72 98 08/04/21 14:55 104 H 36 H 99 08/04/21 14:37 39.1 C H 08/04/21 14:00 98 H 26 H 167/78 H 92 08/04/21 13:05 38.6 C H 86 16 129/88 97 08/04/21 11:47 94 H 24 114/76 98 08/04/21 11:15 102 H 26 H 129/52 L 97 08/04/21 11:10 93 H 35 H 96 08/04/21 10:54 98 H 46 H 164/80 H 97 08/04/21 10:20 88 26 H 145/72 H 95 08/04/21 09:57 67 16 143/68 H 95 08/04/21 08:42 39.5 C H 80 26 H 149/65 H 97 08/04/21 07:10 94 H 20 160/71 H 95 PG Care Time/CCT Total # of Minutes Spent Total Time Spent with Patient: Total time spent is greater than 50% in coordination of care (as documented) at patient's floor/unit and/or counseling patient: Coding Level of Care Code 09324 Inpt Consult Level 4 (25 - SIGNIFICANT, SEPARATELY IDENTIFIABLE ) Diagnoses Meningitis G03.9 Left acute otitis media H66.92 Right serous otitis media H65.91
[2021-08-04] MEDS: DEXMEDETOMIDINE HCL 200 MCG in SODIUM CHLORIDE 0.9% 48 ML IV SCH ×2 (18:36→19:44)
[2021-08-04] MEDS: MoRPHine SULFATE 2 MG/ML CARP IV PRN (19:46)
[2021-08-04] MEDS: cefTRIAXone SODIUM 2,000 MG in DEXTROSE 5% 50 ML IV SCH (20:18)
--- NOTE | 2021-08-04 20:21 | CT Scan Report ---
CT IAC BI wo con HISTORY: Strep meningitis - bilateral mastoid effusions TECHNIQUE: Multiaxial CT images of the temporal bones were performed without contrast and reformatted in the sagittal and coronal plane at the workstation by the radiologist. COMPARISON STUDY: Head CT 08/04/2021. FINDINGS: The external auditory canals appear patent. There is complete opacification of the middle e ar cavities and mastoid air cells. The ossicles are intact. No erosive changes identified within the right or left scutum. No evidence for inner ear dysplasia. The 7th cranial nerves describe a normal c ourse. Limited evaluation of the tegmen due to the motion artifact. However, there appears to be foca l erosion of the left epitympanic roof measuring 3.7 mm. This is best seen on coronal image 53. There is also suggestive of a 3 mm focal erosion within the right epitympanic roof on image 70. However, n o fluid collections identified within the brain. Mild hypertrophy of the adenoid tonsils. IMPRESSION: 1. Complete opacification of bilateral middle ear cavities and mastoid air cells. The ossicles appear intact. 2. Limited evaluation of the tegmen due to the motion artifact. There may be small focal erosions wit hin the epitympanic roofs measuring 3.7 L on the left and 3 mm on the right. No definite fluid collec tions identified within the brain. ACT 112: Negative or not required by law. Electronically signed by: Reginald Sales M.D. 08/04/2021 8:20 PM
[2021-08-04] MEDS ORDERED: HEPARIN SOD 5,000 UNIT/0.5 ML VIAL SQ SCH (21:00)
--- NOTE | 2021-08-04 21:31 | Emergency Department Note ---
History of Present Illness General Chief complaint: Head Pain Stated complaint: HEAD PAIN Time Seen by Provider: 08/04/21 04:59 History of Present Illness Maximum Pain Intensity: 8 This is a 36-year-old male presenting to the emergency department for evaluation of headache symptoms that began roughly 12 hours prior to arrival. The patient has a history of intellectual disability and does not communicate well. He is accompanied by his mother who is the primary caregiver and provides much of the history. The patient has been at his baseline until a few hours ago when he started complaining of pain. She does not report any fever or chills. No known injury or trauma. The patient does not have any known exposures to disease and his discomfort is currently rated an 8/10. He does have a history of chronic otitis media. He has been eating and drinking as normal. He does get headaches from time to time, and has not had anything [id number] for pain control. Home Medications Medication Instructions Recorded Confirmed Type doxycycline hyclate 100 mg capsule 100 mg PO BID 28 Days #56 cap 08/04/21 Rx Allergies Allergy/AdvReac Type Severity Reaction Status Date / Time No Known Allergies Allergy Verified 08/04/21 13:27 Past Med/Surg History Medical History Intellectual disability Surgical History No significant past surgical history Social History Smoking Status: Current every day smoker Tobacco Type: Cigarettes Current Living Situation: Family Feels Safe at Home: Yes Review of Systems A total of 10 systems reviewed and were otherwise negative (Much of ROS is pr ovided by mother.) Physical Exam Vital Signs Vital Signs - 24 hr 08/04/21 04:28 08/04/21 06:15 08/04/21 07:10 Temperature 37.1 C Temperature Source Temporal Artery Scan Pulse Rate 84 Pulse Rate [Right Finger] 96 H 94 H Pulse Rhythm [Right Finger] Regular Pulse Strength [Right Finger] Respiratory Rate 22 20 20 Respiratory Effort / Characteristics Non-Labored Respiratory Depth Normal Respiratory Pattern Blood Pressure 148/79 H Blood Pressure [Left Arm] 181/81 H 160/71 H Blood Pressure Mean 102 Blood Pressure Mean [Left Arm] 114 100 Blood Pressure Position [Left Arm] Pulse Oximetry 98 97 95 Oxygen Delivery Method Room Air Room Air Room Air Fraction of Inspired Oxygen SaO2/FiO2 Ratio Sepsis Recent Fever Within 48 Hours No Sepsis New/Unexplained Change in Mental Status N/A Sepsis Action Taken by Nursing No Action Required 08/04/21 07:30 08/04/21 08:42 08/04/21 09:57 Temperature 39.5 C H Temperature Source Oral Pulse Rate Pulse Rate [Right Finger] 80 67 Pulse Rhythm [Right Finger] Regular Pulse Strength [Right Finger] Respiratory Rate 26 H 16 Respiratory Effort / Characteristics Non-Labored Non-Labored Spontaneous Respiratory Depth Normal Normal Respiratory Pattern Tachypnea Blood Pressure Blood Pressure [Left Arm] 149/65 H 143/68 H Blood Pressure Mean Blood Pressure Mean [Left Arm] 93 93 Blood Pressure Position [Left Arm] Right Lateral Pulse Oximetry 97 95 Oxygen Delivery Method Room Air Room Air Fraction of Inspired Oxygen SaO2/FiO2 Ratio Sepsis Recent Fever Within 48 Hours Sepsis New/Unexplained Change in Mental Status Sepsis Action Taken by Nursing 08/04/21 10:20 08/04/21 10:54 08/04/21 11:10 Temperature Temperature Source Pulse Rate 93 H Pulse Rate [Right Finger] 88 98 H Pulse Rhythm [Right Finger] Regular Pulse Strength [Right Finger] Normal Respiratory Rate 26 H 46 H 35 H Respiratory Effort / Characteristics Labored Spontaneous Labored Respiratory Depth Normal Normal Respiratory Pattern Tachypnea Tachypnea Tachypnea Blood Pressure Blood Pressure [Left Arm] 145/72 H 164/80 H Blood Pressure Mean Blood Pressure Mean [Left Arm] 96 108 Blood Pressure Position [Left Arm] Lying Pulse Oximetry 95 97 96 Oxygen Delivery Method Room Air Room Air Fraction of Inspired Oxygen 21 SaO2/FiO2 Ratio Sepsis Recent Fever Within 48 Hours Sepsis New/Unexplained Change in Mental Status Sepsis Action Taken by Nursing 08/04/21 11:15 08/04/21 11:47 Temperature Temperature Source Pulse Rate Pulse Rate [Right Finger] 102 H 94 H Pulse Rhythm [Right Finger] Regular Pulse Strength [Right Finger] Respiratory Rate 26 H 24 Respiratory Effort / Characteristics Respiratory Depth Normal Respiratory Pattern Tachypnea Blood Pressure Blood Pressure [Left Arm] 129/52 L 114/76 Blood Pressure Mean Blood Pressure Mean [Left Arm] 77 88 Blood Pressure Position [Left Arm] Sitting Pulse Oximetry 97 98 Oxygen Delivery Method BiPAP BiPAP Fraction of Inspired Oxygen 21 SaO2/FiO2 Ratio 466 Sepsis Recent Fever Within 48 Hours Sepsis New/Unexplained Change in Mental Status Sepsis Action Taken by Nursing VITALS: Vitals are noted on the nurse's note and reviewed by myself. Vital signs stable. GENERAL: White male who is laying in a darkened emergency room. He will answer some questions in short answers. He does appear uncomfortable and at times will hold his head due to his reported discomfort. HEAD: Normocephalic atraumatic. EARS: External ear normal. External auditory canals clear. Right TM with serous appearing fluid behind it. Left TM with increased injection possibly consistent with otitis media. No appreciable mastoid tenderness. EYES: Pupils equal round and reactive to light and accommodation. Conjunctivae without injection, sclerae without icterus. Extraocular movements intact. NOSE: Patent, turbinates without inflammation or discharge. MOUTH: Mucous membranes moist. Tonsils are not enlarged. Pharynx without erythema, blood, or exudate. Uvula midline. Airway patent. NECK: Supple without nuchal rigidity. No lymphadenopathy. No thyromegaly. Cervical spine is nontender. HEART: Regular rate and rhythm without murmurs gallops or rubs. LUNGS: Clear to auscultation bilaterally without wheezes, rales or rhonchi. No retractions or accessory muscle use. MUSCULOSKELETAL: No muscle atrophy, erythema, or edema noted. Full range of motion in all extremities. NEURO: Patient was alert and oriented to person place and time. CN II through XII grossly intact. Course Administered Medications Sodium Chloride (Nss 1000ml) 1,000 mls @ 150 mls/hr IV .Q6H40M [facility] Stop: 08/05/21 10:05 Last Admin: 08/04/21 20:19 Dose: 150 mls/hr Documented by: [id number] Infusion: 08/04/21 20:19 Dose: 150 mls/hr Documented by: [id number] Admin: 08/04/21 14:06 Dose: 150 mls/hr Documented by: [id number] Ceftriaxone Sodium 2,000 mg/ (Dextrose) 70 mls @ 100 mls/hr IV Q12H [facility]; Pro tocol Stop: 08/14/21 18:59 Last Admin: 08/04/21 20:18 Dose: 100 mls/hr Documented by: [id number] Dexamethasone 10 mg/ Syringe 2.5 mls @ 1 mls/min IV Q6H [facility] Stop: 08/08/21 04:03 Last Admin: 08/04/21 20:21 Dose: 1 mls/min Documented by: [id number] Admin: 08/04/21 15:32 Dose: 1 mls/min Documented by: [id number] Vancomycin HCl 1,500 mg/ (Sodium Chloride) 530 mls @ 200 mls/hr IV Q8H [facility]; Protocol Stop: 08/14/21 17:59 Last Infusion: 08/04/21 20:30 Dose: 0 mls/hr Documented by: [id number] Admin: 08/04/21 17:51 Dose: 200 mls/hr Documented by: [id number] Dexmedetomidine HCl 200 mcg/ (Sodium Chloride) 50 mls @ 16.005 mls/hr IV .Q3H8M [facility]; Protocol Stop: 08/08/21 18:29 Last Admin: 08/04/21 19:44 Dose: 0.6 mcg/kg/hr, 16 mls/hr Documented by: [id number] Cosigned by: [id number] Titration: 08/04/21 19:44 Dose: 0.4 mcg/kg/hr, 10.7 mls/hr Documented by: [id number] Cosigned by: [id number] Titration: 08/04/21 19:10 Dose: 0.4 mcg/kg/hr, 10.7 mls/hr Documented by: [id number] Cosigned by: [id number] Admin: 08/04/21 18:36 Dose: 0.4 mcg/kg/hr, 10.7 mls/hr Documented by: [id number] Cosigned by: [id number] Morphine Sulfate (Morphine Sulfate 2 Mg/Ml Carp) 2 mg IV Q3H PRN PRN Reason: Pain Stop: 08/18/21 16:31 Last Admin: 08/04/21 19:46 Dose: 2 mg Documented by: [id number] Discontinued Medications Acetaminophen (Acetaminophen 1000 Mg/100 Ml Iv) 1,000 mg IV NOW STA Stop: 08/04/21 14:42 Last Admin: 08/04/21 15:05 Dose: 1,000 mg Documented by: [id number] Dexamethasone Sodium Phosphate (DexamethasonePf 10 Mg/Ml Vial) 10 mg IV NOW ONE Stop: 08/04/21 09:51 Last Admin: 08/04/21 10:19 Dose: 10 mg Documented by: [id number] Diphenhydramine HCl (Diphenhydramine 50 Mg/Ml Vial) 25 mg IV NOW STA Stop: 08/04/21 05:09 Last Admin: 08/04/21 05:23 Dose: 25 mg Documented by: [id number] Sodium Chloride (Nss 1000ml) 1,000 mls @ 999 mls/hr IV .Q1H1M [facility] Stop: 08/04/21 06:15 Last Infusion: 08/04/21 06:41 Dose: 0 mls/hr Documented by: [id number] Admin: 08/04/21 05:22 Dose: 999 mls/hr Documented by: [id number] Acetaminophen (Ofirmev) 1,000 mg in 100 mls @ 400 mls/hr IV NOW STA Stop: 08/04/21 05:22 Last Infusion: 08/04/21 06:18 Dose: 0 mls/hr Documented by: [id number] Admin: 08/04/21 05:22 Dose: 400 mls/hr Documented by: [id number] Prochlorperazine (Compazine) 1 mls @ 1 mls/min IV ONE ONE Stop: 08/04/21 05:09 Last Admin: 08/04/21 05:33 Dose: 1 mls/min Documented by: [id number] Ceftriaxone Sodium (Rocephin) 2,000 mg in 70 mls @ 140 mls/hr IV NOW STA Stop: 08/04/21 07:30 Last Infusion: 08/04/21 08:00 Dose: 0 mls/hr Documented by: [id number] Admin: 08/04/21 07:15 Dose: 140 mls/hr Documented by: [id number] Vancomycin HCl 2,250 mg/ (Sodium Chloride) 545 mls @ 200 mls/hr IV NOW ONE Stop: 08/04/21 12:00 Last Infusion: 08/04/21 12:10 Dose: 0 mls/hr Documented by: [id number] Admin: 08/04/21 09:54 Dose: 200 mls/hr Documented by: [id number] Sodium Chloride (Nss 1000ml) 1,000 mls @ 999 mls/hr IV .Q1H1M ONE Stop: 08/04/21 10:20 Last Admin: 08/04/21 15:21 Dose: Not Given Documented by: [id number] Sodium Chloride (Nss 1000ml) 2,000 mls @ 999 mls/hr IV .Q2H1M ONE Stop: 08/04/21 11:32 Last Infusion: 08/04/21 12:10 Dose: 0 mls/hr Documented by: [id number] Admin: 08/04/21 09:55 Dose: 999 mls/hr Documented by: [id number] Acyclovir Sodium 860 mg/ (Dextrose) 267.2 mls @ 267.2 mls/hr IV NOW STA Stop: 08/04/21 10:52 Last Infusion: 08/04/21 12:09 Dose: 0 mls/hr Documented by: [id number] Admin: 08/04/21 10:49 Dose: 267.2 mls/hr Documented by: [id number] Sodium Chloride (Nss 1000ml) 1,000 mls @ 999 mls/hr IV .Q1H1M ONE Stop: 08/04/21 11:44 Last Infusion: 08/04/21 12:09 Dose: 0 mls/hr Documented by: [id number] Admin: 08/04/21 10:51 Dose: 999 mls/hr Documented by: [id number] Lorazepam (Ativan) 2 mg in 4 mls @ 4 mls/min IV NOW STA Stop: 08/04/21 11:18 Last Admin: 08/04/21 11:34 Dose: 4 mls/min Documented by: [id number] Lorazepam (Ativan) 1 mg in 2 mls @ 2 mls/min IV NOW STA Stop: 08/04/21 16:14 Last Admin: 08/04/21 16:31 Dose: 2 mls/min Documented by: [id number] Lorazepam (Ativan) 1 mg in 2 mls @ 0.5 mls/min IV UD ONE Stop: 08/04/21 18:26 Last Admin: 08/04/21 19:46 Dose: 0.5 mls/min Documented by: [id number] Morphine Sulfate (Morphine Sulfate 4 Mg/Ml 1 Ml Carp\Vial) 4 mg IV NOW STA Stop: 08/04/21 05:09 Last Admin: 08/04/21 05:23 Dose: 4 mg Documented by: [id number] Morphine Sulfate (Morphine Sulfate 2 Mg/Ml Carp) 2 mg IV NOW STA Stop: 08/04/21 14:52 Last Admin: 08/04/21 15:05 Dose: 2 mg Documented by: [id number] Medical Decision Making Differential Diagnosis The differential diagnosis includes, but is not limited to: acute intracranial bleed, meningitis, encephalitis, mass or mass effect, sinusitis, infection, tumor, headache, temporal arteritis and carbon monoxide exposure, and migraine. Laboratory Data Result diagrams: 08/04/21 06:40 08/04/21 14:36 Lab Results 08/04/21 08/04/21 08/04/21 Range/Units 04:56 04:56 04:56 WBC Cancelled RBC Cancelled Hgb Cancelled Hct Cancelled MCV Cancelled MCH Cancelled MCHC Cancelled RDW Std Deviation Cancelled RDW Coeff of Abel Cancelled Plt Count Cancelled MPV Cancelled Immature Gran % (Auto) Cancelled Neut % (Auto) Cancelled Lymph % (Auto) Cancelled Power % (Auto) Cancelled Eos % (Auto) Cancelled Baso % (Auto) Cancelled Neut # (Auto) Cancelled Lymph # (Auto) Cancelled Power # (Auto) Cancelled Eos # (Auto) Cancelled Baso # (Auto) Cancelled Immature Gran # (Auto) Cancelled Absolute Nucleated RBC Cancelled Nucleated RBC % (auto) Cancelled Neutrophils % (Manual) Cancelled Band Neutrophils % Cancelled Lymphocytes % (Manual) Cancelled Prolymphocyte % Cancelled Reactive Lymphs % (Man) Cancelled Monocytes % (Manual) Cancelled Eosinophils % (Manual) Cancelled Basophils % (Manual) Cancelled Metamyelocytes % (Man) Cancelled Myelocytes % (Man) Cancelled Promyelocytes % (Man) Cancelled Blast Cells % (Manual) Cancelled Plasma Cell % (Manual) Cancelled Other Cells % Cancelled Nucleated RBC % Cancelled Neutrophils # (Manual) Cancelled Band Neutrophils # Cancelled Total Absolute Neuts Cancelled Lymphocytes # (Manual) Cancelled Prolymphocyte # Cancelled Reactive Lymphs # Cancelled Total Abs Lymphocytes Cancelled Monocytes # (Manual) Cancelled Eosinophils # (Manual) Cancelled Basophils # (Manual) Cancelled Metamyelocytes # (Man) Cancelled Myelocytes # (Manual) Cancelled Promyelocytes # (Man) Cancelled Blast Cells # (Man) Cancelled Plasma Cell # (Manual) Cancelled Other Cells # Cancelled Nucleated RBCs # (Man) Cancelled Hypersegmented Neuts Cancelled Hyposegmented Neuts Cancelled Hypogranular Neuts Cancelled Large Granular Lymphs Cancelled # Lrg Granular Lymphs Cancelled Hairy Cells Cancelled Smudge Cells Cancelled Toxic Granulation Cancelled Toxic Vacuolation Cancelled Dohle Bodies Cancelled Ruben Rods Cancelled Platelet Estimate Cancelled Hypogranular Platelets Cancelled Clumped Platelets Cancelled Giant Platelets Cancelled Platelet Satelliting Cancelled RBC Morphology Cancelled Polychromasia Cancelled Hypochromasia Cancelled Poikilocytosis Cancelled Basophilic Stippling Cancelled Anisocytosis Cancelled Microcytosis Cancelled Macrocytosis Cancelled Spherocytes Cancelled Pappenheimer Bodies Cancelled Sickle Cells Cancelled Target Cells Cancelled Tear Drop Cells Cancelled Ovalocytes Cancelled Stomatocytes Cancelled Jordan-Witmer Bodies Cancelled Echinocytes Cancelled Acanthocytes (Spur) Cancelled Rouleaux Cancelled RBC Agglutinates Cancelled Schistocytes Cancelled RBC Morph Comment Cancelled Sezary Cell Cancelled ABG pH (7.35-7.45) ABG pCO2 (35-46) mmHg ABG pO2 (80-95) mmHg ABG HCO3 (19-24) mmol/L ABG O2 Saturation (90-95) % ABG Base Excess (-9-1.8) mEq/L Pankaj Test (Pos) Barometric Pressure mm/Hg Oxygen Given Sodium 137 (136-145) mmol/L Potassium 3.6 (3.5-5.1) mmol/L Chloride 107 (98-107) mmol/L Carbon Dioxide 25 (21-32) mmol/L Anion Gap 5.0 (3-11) BUN 12 (7-18) mg/dl Creatinine 0.95 (0.6-1.4) mg/dl Est Cr Clr Drug Dosing 132.8 ml/min Est GFR ( Amer) 119.7 ml/min Est GFR (Non-Af Amer) 103.3 ml/min BUN/Creatinine Ratio 12.5 (10-20) Glucose 131 H (70-99) mg/dl Lactate (0.4-2.0) mmol/L Calcium 8.9 (8.5-10.1) mg/dl Total Bilirubin 0.3 (0.2-1) mg/dl AST 13 L (15-37) U/L ALT 13 (12-78) U/L Alkaline Phosphatase 86 (45-117) U/L Total Creatine Kinase (39-308) U/L Total Protein 7.9 (6.4-8.2) gm/dl Albumin 3.4 (3.4-5.0) gm/dl Globulin 4.5 H (2.5-4.0) gm/dl Albumin/Globulin Ratio 0.8 L (0.9-2) Procalcitonin (0-0.5) ng/ml Specimen Hemolysis Urine Color Urine Appearance (Clear) Urine pH (4.5-7.5) Ur Specific [place] (1.000-1.030) Urine Protein (Negative) Urine Glucose (UA) (Negative) Urine Ketones (Negative) Urine Blood (Negative) Urine Nitrite (Negative) Urine Bilirubin (Negative) Urine Urobilinogen (Negative) Ur Leukocyte Esterase (Negative) Urine WBC (Auto) (0-5) /hpf Urine RBC (Auto) (0-4) /hpf U Hyaline Cast (Auto) (0-5) /lpf U Epithel Cells (Auto) (0-5) /lpf Urine Bacteria (Auto) (Negative) Fluid Comment CSF Appearance CSF Color Xanthrochromic CSF WBC (0-5) /uL CSF RBC (0-) /uL CSF Cell Count Tube # CSF Mononuclear WBCs % % CSF Polynuclear WBCs % % CSF Chemistry Tube # CSF Glucose (40-70) mg/dl CSF Lactate CSF Total Protein (15-45) mg/dl CSF C.neoform/gat PCR (NotDetected) CSF CMV DNA (PCR) (NotDetected) CSF Enterovirus (PCR) (NotDetected) CSF E. coli K1 (PCR) (NotDetected) CSF H. influenzae (PCR) (NotDetected) CSF HSV I (PCR) (NotDetected) CSF HSV II (PCR) (NotDetected) CSF HHV 6 (PCR) (NotDetected) CSF L.monocytogenes PCR (NotDetected) CSF N. meningitidis PCR (NotDetected) CSF Parechovirus (PCR) (NotDetected) CSF S. agalactiae (PCR) (NotDetected) CSF S. pneumoniae (PCR) (NotDetected) CSF VZV DNA (PCR) (NotDetected) CSF West Nile IgM Ab Lyme Disease IgG Ab Positive A (Negative) Lyme IgG (Western Blot) Lyme IgG 18 kDa Band Lyme IgG 23 kDa Band Lyme IgG 28 kDa Band Lyme IgG 30 kDa Band Lyme IgG 39 kDa Band Lyme IgG 41 kDa Band Lyme IgG 45 kDa Band Lyme IgG 58 kDa Band Lyme IgG 66 kDa Band Lyme IgG 93 kDa Band Lyme IgM Ab (WB) Lyme Disease IgM Ab Negative (Negative) Lyme IgM 23 kDa Band Lyme IgM 39 kDa Band Lyme IgM 41 kDa Band COVID-19 Eval Order SARS-CoV-2 (PCR) (Negative) CMV Specimen Source CMV Qnt PCR IU/mL CMV Qnt PCR log IU/mL Herpes Virus Source HSV I DNA PCR HSV II DNA PCR 08/04/21 08/04/21 08/04/21 Range/Units 04:56 05:38 05:38 WBC RBC Hgb Hct MCV MCH MCHC RDW Std Deviation RDW Coeff of Abel Plt Count MPV Immature Gran % (Auto) Neut % (Auto) Lymph % (Auto) Power % (Auto) Eos % (Auto) Baso % (Auto) Neut # (Auto) Lymph # (Auto) Power # (Auto) Eos # (Auto) Baso # (Auto) Immature Gran # (Auto) Absolute Nucleated RBC Nucleated RBC % (auto) Neutrophils % (Manual) Band Neutrophils % Lymphocytes % (Manual) Prolymphocyte % Reactive Lymphs % (Man) Monocytes % (Manual) Eosinophils % (Manual) Basophils % (Manual) Metamyelocytes % (Man) Myelocytes % (Man) Promyelocytes % (Man) Blast Cells % (Manual) Plasma Cell % (Manual) Other Cells % Nucleated RBC % Neutrophils # (Manual) Band Neutrophils # Total Absolute Neuts Lymphocytes # (Manual) Prolymphocyte # Reactive Lymphs # Total Abs Lymphocytes Monocytes # (Manual) Eosinophils # (Manual) Basophils # (Manual) Metamyelocytes # (Man) Myelocytes # (Manual) Promyelocytes # (Man) Blast Cells # (Man) Plasma Cell # (Manual) Other Cells # Nucleated RBCs # (Man) Hypersegmented Neuts Hyposegmented Neuts Hypogranular Neuts Large Granular Lymphs # Lrg Granular Lymphs Hairy Cells Smudge Cells Toxic Granulation Toxic Vacuolation Dohle Bodies Ruben Rods Platelet Estimate Hypogranular Platelets Clumped Platelets Giant Platelets Platelet Satelliting RBC Morphology Polychromasia Hypochromasia Poikilocytosis Basophilic Stippling Anisocytosis Microcytosis Macrocytosis Spherocytes Pappenheimer Bodies Sickle Cells Target Cells Tear Drop Cells Ovalocytes Stomatocytes Jordan-Witmer Bodies Echinocytes Acanthocytes (Spur) Rouleaux RBC Agglutinates Schistocytes RBC Morph Comment Sezary Cell ABG pH (7.35-7.45) ABG pCO2 (35-46) mmHg ABG pO2 (80-95) mmHg ABG HCO3 (19-24) mmol/L ABG O2 Saturation (90-95) % ABG Base Excess (-9-1.8) mEq/L Pankaj Test (Pos) Barometric Pressure mm/Hg Oxygen Given Sodium (136-145) mmol/L Potassium (3.5-5.1) mmol/L Chloride (98-107) mmol/L Carbon Dioxide (21-32) mmol/L Anion Gap (3-11) BUN (7-18) mg/dl Creatinine (0.6-1.4) mg/dl Est Cr Clr Drug Dosing ml/min Est GFR ( Amer) ml/min Est GFR (Non-Af Amer) ml/min BUN/Creatinine Ratio (10-20) Glucose (70-99) mg/dl Lactate (0.4-2.0) mmol/L Calcium (8.5-10.1) mg/dl Total Bilirubin (0.2-1) mg/dl AST (15-37) U/L ALT (12-78) U/L Alkaline Phosphatase (45-117) U/L Total Creatine Kinase (39-308) U/L Total Protein (6.4-8.2) gm/dl Albumin (3.4-5.0) gm/dl Globulin (2.5-4.0) gm/dl Albumin/Globulin Ratio (0.9-2) Procalcitonin (0-0.5) ng/ml Specimen Hemolysis Urine Color Urine Appearance (Clear) Urine pH (4.5-7.5) Ur Specific [place] (1.000-1.030) Urine Protein (Negative) Urine Glucose (UA) (Negative) Urine Ketones (Negative) Urine Blood (Negative) Urine Nitrite (Negative) Urine Bilirubin (Negative) Urine Urobilinogen (Negative) Ur Leukocyte Esterase (Negative) Urine WBC (Auto) (0-5) /hpf Urine RBC (Auto) (0-4) /hpf U Hyaline Cast (Auto) (0-5) /lpf U Epithel Cells (Auto) (0-5) /lpf Urine Bacteria (Auto) (Negative) Fluid Comment CSF Appearance CSF Color Xanthrochromic CSF WBC (0-5) /uL CSF RBC (0-) /uL CSF Cell Count Tube # CSF Mononuclear WBCs % % CSF Polynuclear WBCs % % CSF Chemistry Tube # CSF Glucose (40-70) mg/dl CSF Lactate CSF Total Protein (15-45) mg/dl CSF C.neoform/gat PCR (NotDetected) CSF CMV DNA (PCR) (NotDetected) CSF Enterovirus (PCR) (NotDetected) CSF E. coli K1 (PCR) (NotDetected) CSF H. influenzae (PCR) (NotDetected) CSF HSV I (PCR) (NotDetected) CSF HSV II (PCR) (NotDetected) CSF HHV 6 (PCR) (NotDetected) CSF L.monocytogenes PCR (NotDetected) CSF N. meningitidis PCR (NotDetected) CSF Parechovirus (PCR) (NotDetected) CSF S. agalactiae (PCR) (NotDetected) CSF S. pneumoniae (PCR) (NotDetected) CSF VZV DNA (PCR) (NotDetected) CSF West Nile IgM Ab Lyme Disease IgG Ab (Negative) Lyme IgG (Western Blot) Cancelled Lyme IgG 18 kDa Band Cancelled Lyme IgG 23 kDa Band Cancelled Lyme IgG 28 kDa Band Cancelled Lyme IgG 30 kDa Band Cancelled Lyme IgG 39 kDa Band Cancelled Lyme IgG 41 kDa Band Cancelled Lyme IgG 45 kDa Band Cancelled Lyme IgG 58 kDa Band Cancelled Lyme IgG 66 kDa Band Cancelled Lyme IgG 93 kDa Band Cancelled Lyme IgM Ab (WB) Cancelled Lyme Disease IgM Ab (Negative) Lyme IgM 23 kDa Band Cancelled Lyme IgM 39 kDa Band Cancelled Lyme IgM 41 kDa Band Cancelled COVID-19 Eval Order Covid19 at [facility] SARS-CoV-2 (PCR) NEGATIVE (Negative) CMV Specimen Source CMV Qnt PCR IU/mL CMV Qnt PCR log IU/mL Herpes Virus Source HSV I DNA PCR HSV II DNA PCR 08/04/21 08/04/21 08/04/21 Range/Units 06:40 06:47 09:54 WBC 16.12 H RBC 4.73 Hgb 13.7 L Hct 38.7 L MCV 81.8 MCH 29.0 MCHC 35.4 RDW Std Deviation 41.6 RDW Coeff of Abel 13.7 Plt Count 165 MPV 8.4 Immature Gran % (Auto) 0.2 Neut % (Auto) 90.7 Lymph % (Auto) 5.3 Power % (Auto) 3.7 Eos % (Auto) 0.0 Baso % (Auto) 0.1 Neut # (Auto) 14.61 H Lymph # (Auto) 0.85 L Power # (Auto) 0.60 H Eos # (Auto) 0.00 Baso # (Auto) 0.02 Immature Gran # (Auto) 0.04 H Absolute Nucleated RBC Nucleated RBC % (auto) Neutrophils % (Manual) Band Neutrophils % Lymphocytes % (Manual) Prolymphocyte % Reactive Lymphs % (Man) Monocytes % (Manual) Eosinophils % (Manual) Basophils % (Manual) Metamyelocytes % (Man) Myelocytes % (Man) Promyelocytes % (Man) Blast Cells % (Manual) Plasma Cell % (Manual) Other Cells % Nucleated RBC % Neutrophils # (Manual) Band Neutrophils # Total Absolute Neuts Lymphocytes # (Manual) Prolymphocyte # Reactive Lymphs # Total Abs Lymphocytes Monocytes # (Manual) Eosinophils # (Manual) Basophils # (Manual) Metamyelocytes # (Man) Myelocytes # (Manual) Promyelocytes # (Man) Blast Cells # (Man) Plasma Cell # (Manual) Other Cells # Nucleated RBCs # (Man) Hypersegmented Neuts Hyposegmented Neuts Hypogranular Neuts Large Granular Lymphs # Lrg Granular Lymphs Hairy Cells Smudge Cells Toxic Granulation Toxic Vacuolation Dohle Bodies Ruben Rods Platelet Estimate Hypogranular Platelets Clumped Platelets Giant Platelets Platelet Satelliting RBC Morphology Polychromasia Hypochromasia Poikilocytosis Basophilic Stippling Anisocytosis Microcytosis Macrocytosis Spherocytes Pappenheimer Bodies Sickle Cells Target Cells Tear Drop Cells Ovalocytes Stomatocytes Jrodan-Witmer Bodies Echinocytes Acanthocytes (Spur) Rouleaux RBC Agglutinates Schistocytes RBC Morph Comment Sezary Cell ABG pH (7.35-7.45) ABG pCO2 (35-46) mmHg ABG pO2 (80-95) mmHg ABG HCO3 (19-24) mmol/L ABG O2 Saturation (90-95) % ABG Base Excess (-9-1.8) mEq/L Pankaj Test (Pos) Barometric Pressure mm/Hg Oxygen Given Sodium (136-145) mmol/L Potassium (3.5-5.1) mmol/L Chloride (98-107) mmol/L Carbon Dioxide (21-32) mmol/L Anion Gap (3-11) BUN (7-18) mg/dl Creatinine (0.6-1.4) mg/dl Est Cr Clr Drug Dosing ml/min Est GFR ( Amer) ml/min Est GFR (Non-Af Amer) ml/min BUN/Creatinine Ratio (10-20) Glucose (70-99) mg/dl Lactate 3.8 H* (0.4-2.0) mmol/L Calcium (8.5-10.1) mg/dl Total Bilirubin (0.2-1) mg/dl AST (15-37) U/L ALT (12-78) U/L Alkaline Phosphatase (45-117) U/L Total Creatine Kinase (39-308) U/L Total Protein (6.4-8.2) gm/dl Albumin (3.4-5.0) gm/dl Globulin (2.5-4.0) gm/dl Albumin/Globulin Ratio (0.9-2) Procalcitonin 0.10 (0-0.5) ng/ml Specimen Hemolysis Urine Color Urine Appearance (Clear) Urine pH (4.5-7.5) Ur Specific [place] (1.000-1.030) Urine Protein (Negative) Urine Glucose (UA) (Negative) Urine Ketones (Negative) Urine Blood (Negative) Urine Nitrite (Negative) Urine Bilirubin (Negative) Urine Urobilinogen (Negative) Ur Leukocyte Esterase (Negative) Urine WBC (Auto) (0-5) /hpf Urine RBC (Auto) (0-4) /hpf U Hyaline Cast (Auto) (0-5) /lpf U Epithel Cells (Auto) (0-5) /lpf Urine Bacteria (Auto) (Negative) Fluid Comment CSF Appearance CSF Color Xanthrochromic CSF WBC (0-5) /uL CSF RBC (0-) /uL CSF Cell Count Tube # CSF Mononuclear WBCs % % CSF Polynuclear WBCs % % CSF Chemistry Tube # CSF Glucose (40-70) mg/dl CSF Lactate CSF Total Protein (15-45) mg/dl CSF C.neoform/gat PCR (NotDetected) CSF CMV DNA (PCR) (NotDetected) CSF Enterovirus (PCR) (NotDetected) CSF E. coli K1 (PCR) (NotDetected) CSF H. influenzae (PCR) (NotDetected) CSF HSV I (PCR) (NotDetected) CSF HSV II (PCR) (NotDetected) CSF HHV 6 (PCR) (NotDetected) CSF L.monocytogenes PCR (NotDetected) CSF N. meningitidis PCR (NotDetected) CSF Parechovirus (PCR) (NotDetected) CSF S. agalactiae (PCR) (NotDetected) CSF S. pneumoniae (PCR) (NotDetected) CSF VZV DNA (PCR) (NotDetected) CSF West Nile IgM Ab Lyme Disease IgG Ab (Negative) Lyme IgG (Western Blot) Lyme IgG 18 kDa Band Lyme IgG 23 kDa Band Lyme IgG 28 kDa Band Lyme IgG 30 kDa Band Lyme IgG 39 kDa Band Lyme IgG 41 kDa Band Lyme IgG 45 kDa Band Lyme IgG 58 kDa Band Lyme IgG 66 kDa Band Lyme IgG 93 kDa Band Lyme IgM Ab (WB) Lyme Disease IgM Ab (Negative) Lyme IgM 23 kDa Band Lyme IgM 39 kDa Band Lyme IgM 41 kDa Band COVID-19 Eval Order SARS-CoV-2 (PCR) (Negative) CMV Specimen Source CMV Qnt PCR IU/mL CMV Qnt PCR log IU/mL Herpes Virus Source HSV I DNA PCR HSV II DNA PCR 08/04/21 08/04/21 08/04/21 Range/Units 09:54 11:25 12:05 WBC RBC Hgb Hct MCV MCH MCHC RDW Std Deviation RDW Coeff of Abel Plt Count MPV Immature Gran % (Auto) Neut % (Auto) Lymph % (Auto) Power % (Auto) Eos % (Auto) Baso % (Auto) Neut # (Auto) Lymph # (Auto) Power # (Auto) Eos # (Auto) Baso # (Auto) Immature Gran # (Auto) Absolute Nucleated RBC Nucleated RBC % (auto) Neutrophils % (Manual) Band Neutrophils % Lymphocytes % (Manual) Prolymphocyte % Reactive Lymphs % (Man) Monocytes % (Manual) Eosinophils % (Manual) Basophils % (Manual) Metamyelocytes % (Man) Myelocytes % (Man) Promyelocytes % (Man) Blast Cells % (Manual) Plasma Cell % (Manual) Other Cells % Nucleated RBC % Neutrophils # (Manual) Band Neutrophils # Total Absolute Neuts Lymphocytes # (Manual) Prolymphocyte # Reactive Lymphs # Total Abs Lymphocytes Monocytes # (Manual) Eosinophils # (Manual) Basophils # (Manual) Metamyelocytes # (Man) Myelocytes # (Manual) Promyelocytes # (Man) Blast Cells # (Man) Plasma Cell # (Manual) Other Cells # Nucleated RBCs # (Man) Hypersegmented Neuts Hyposegmented Neuts Hypogranular Neuts Large Granular Lymphs # Lrg Granular Lymphs Hairy Cells Smudge Cells Toxic Granulation Toxic Vacuolation Dohle Bodies Ruben Rods Platelet Estimate Hypogranular Platelets Clumped Platelets Giant Platelets Platelet Satelliting RBC Morphology Polychromasia Hypochromasia Poikilocytosis Basophilic Stippling Anisocytosis Microcytosis Macrocytosis Spherocytes Pappenheimer Bodies Sickle Cells Target Cells Tear Drop Cells Ovalocytes Stomatocytes Jordan-Witmer Bodies Echinocytes Acanthocytes (Spur) Rouleaux RBC Agglutinates Schistocytes RBC Morph Comment Sezary Cell ABG pH 7.46 H (7.35-7.45) ABG pCO2 30 L (35-46) mmHg ABG pO2 80 (80-95) mmHg ABG HCO3 21 (19-24) mmol/L ABG O2 Saturation 96.7 H (90-95) % ABG Base Excess -1.9 (-9-1.8) mEq/L Pankaj Test Pos (Pos) Barometric Pressure 733.1 mm/Hg Oxygen Given 21% Sodium (136-145) mmol/L Potassium (3.5-5.1) mmol/L Chloride (98-107) mmol/L Carbon Dioxide (21-32) mmol/L Anion Gap (3-11) BUN (7-18) mg/dl Creatinine (0.6-1.4) mg/dl Est Cr Clr Drug Dosing ml/min Est GFR ( Amer) ml/min Est GFR (Non-Af Amer) ml/min BUN/Creatinine Ratio (10-20) Glucose (70-99) mg/dl Lactate (0.4-2.0) mmol/L Calcium (8.5-10.1) mg/dl Total Bilirubin (0.2-1) mg/dl AST (15-37) U/L ALT (12-78) U/L Alkaline Phosphatase (45-117) U/L Total Creatine Kinase 33 L (39-308) U/L Total Protein (6.4-8.2) gm/dl Albumin (3.4-5.0) gm/dl Globulin (2.5-4.0) gm/dl Albumin/Globulin Ratio (0.9-2) Procalcitonin (0-0.5) ng/ml Specimen Hemolysis Urine Color Urine Appearance (Clear) Urine pH (4.5-7.5) Ur Specific [place] (1.000-1.030) Urine Protein (Negative) Urine Glucose (UA) (Negative) Urine Ketones (Negative) Urine Blood (Negative) Urine Nitrite (Negative) Urine Bilirubin (Negative) Urine Urobilinogen (Negative) Ur Leukocyte Esterase (Negative) Urine WBC (Auto) (0-5) /hpf Urine RBC (Auto) (0-4) /hpf U Hyaline Cast (Auto) (0-5) /lpf U Epithel Cells (Auto) (0-5) /lpf Urine Bacteria (Auto) (Negative) Fluid Comment CSF Appearance CSF Color Xanthrochromic CSF WBC (0-5) /uL CSF RBC (0-) /uL CSF Cell Count Tube # CSF Mononuclear WBCs % % CSF Polynuclear WBCs % % CSF Chemistry Tube # CSF Glucose (40-70) mg/dl CSF Lactate CSF Total Protein (15-45) mg/dl CSF C.neoform/gat PCR (NotDetected) CSF CMV DNA (PCR) (NotDetected) CSF Enterovirus (PCR) (NotDetected) CSF E. coli K1 (PCR) (NotDetected) CSF H. influenzae (PCR) (NotDetected) CSF HSV I (PCR) (NotDetected) CSF HSV II (PCR) (NotDetected) CSF HHV 6 (PCR) (NotDetected) CSF L.monocytogenes PCR (NotDetected) CSF N. meningitidis PCR (NotDetected) CSF Parechovirus (PCR) (NotDetected) CSF S. agalactiae (PCR) (NotDetected) CSF S. pneumoniae (PCR) (NotDetected) CSF VZV DNA (PCR) (NotDetected) CSF West Nile IgM Ab Lyme Disease IgG Ab (Negative) Lyme IgG (Western Blot) Lyme IgG 18 kDa Band Lyme IgG 23 kDa Band Lyme IgG 28 kDa Band Lyme IgG 30 kDa Band Lyme IgG 39 kDa Band Lyme IgG 41 kDa Band Lyme IgG 45 kDa Band Lyme IgG 58 kDa Band Lyme IgG 66 kDa Band Lyme IgG 93 kDa Band Lyme IgM Ab (WB) Lyme Disease IgM Ab (Negative) Lyme IgM 23 kDa Band Lyme IgM 39 kDa Band Lyme IgM 41 kDa Band COVID-19 Eval Order SARS-CoV-2 (PCR) (Negative) CMV Specimen Source Cancelled CMV Qnt PCR IU/mL Cancelled CMV Qnt PCR log IU/mL Cancelled Herpes Virus Source Cancelled HSV I DNA PCR Cancelled HSV II DNA PCR Cancelled 08/04/21 08/04/21 08/04/21 Range/Units 12:05 12:05 12:05 WBC RBC Hgb Hct MCV MCH MCHC RDW Std Deviation RDW Coeff of Abel Plt Count MPV Immature Gran % (Auto) Neut % (Auto) Lymph % (Auto) Power % (Auto) Eos % (Auto) Baso % (Auto) Neut # (Auto) Lymph # (Auto) Power # (Auto) Eos # (Auto) Baso # (Auto) Immature Gran # (Auto) Absolute Nucleated RBC Nucleated RBC % (auto) Neutrophils % (Manual) Band Neutrophils % Lymphocytes % (Manual) Prolymphocyte % Reactive Lymphs % (Man) Monocytes % (Manual) Eosinophils % (Manual) Basophils % (Manual) Metamyelocytes % (Man) Myelocytes % (Man) Promyelocytes % (Man) Blast Cells % (Manual) Plasma Cell % (Manual) Other Cells % Nucleated RBC % Neutrophils # (Manual) Band Neutrophils # Total Absolute Neuts Lymphocytes # (Manual) Prolymphocyte # Reactive Lymphs # Total Abs Lymphocytes Monocytes # (Manual) Eosinophils # (Manual) Basophils # (Manual) Metamyelocytes # (Man) Myelocytes # (Manual) Promyelocytes # (Man) Blast Cells # (Man) Plasma Cell # (Manual) Other Cells # Nucleated RBCs # (Man) Hypersegmented Neuts Hyposegmented Neuts Hypogranular Neuts Large Granular Lymphs # Lrg Granular Lymphs Hairy Cells Smudge Cells Toxic Granulation Toxic Vacuolation Dohle Bodies Ruben Rods Platelet Estimate Hypogranular Platelets Clumped Platelets Giant Platelets Platelet Satelliting RBC Morphology Polychromasia Hypochromasia Poikilocytosis Basophilic Stippling Anisocytosis Microcytosis Macrocytosis Spherocytes Pappenheimer Bodies Sickle Cells Target Cells Tear Drop Cells Ovalocytes Stomatocytes Jordan-Witmer Bodies Echinocytes Acanthocytes (Spur) Rouleaux RBC Agglutinates Schistocytes RBC Morph Comment Sezary Cell ABG pH (7.35-7.45) ABG pCO2 (35-46) mmHg ABG pO2 (80-95) mmHg ABG HCO3 (19-24) mmol/L ABG O2 Saturation (90-95) % ABG Base Excess (-9-1.8) mEq/L Pankaj Test (Pos) Barometric Pressure mm/Hg Oxygen Given Sodium (136-145) mmol/L Potassium (3.5-5.1) mmol/L Chloride (98-107) mmol/L Carbon Dioxide (21-32) mmol/L Anion Gap (3-11) BUN (7-18) mg/dl Creatinine (0.6-1.4) mg/dl Est Cr Clr Drug Dosing ml/min Est GFR ( Amer) ml/min Est GFR (Non-Af Amer) ml/min BUN/Creatinine Ratio (10-20) Glucose (70-99) mg/dl Lactate (0.4-2.0) mmol/L Calcium (8.5-10.1) mg/dl Total Bilirubin (0.2-1) mg/dl AST (15-37) U/L ALT (12-78) U/L Alkaline Phosphatase (45-117) U/L Total Creatine Kinase (39-308) U/L Total Protein (6.4-8.2) gm/dl Albumin (3.4-5.0) gm/dl Globulin (2.5-4.0) gm/dl Albumin/Globulin Ratio (0.9-2) Procalcitonin (0-0.5) ng/ml Specimen Hemolysis Urine Color Urine Appearance (Clear) Urine pH (4.5-7.5) Ur Specific [place] (1.000-1.030) Urine Protein (Negative) Urine Glucose (UA) (Negative) Urine Ketones (Negative) Urine Blood (Negative) Urine Nitrite (Negative) Urine Bilirubin (Negative) Urine Urobilinogen (Negative) Ur Leukocyte Esterase (Negative) Urine WBC (Auto) (0-5) /hpf Urine RBC (Auto) (0-4) /hpf U Hyaline Cast (Auto) (0-5) /lpf U Epithel Cells (Auto) (0-5) /lpf Urine Bacteria (Auto) (Negative) Fluid Comment CSF Appearance Cloudy CSF Color Yellow Xanthrochromic No xanthochromia CSF WBC 8500 H* (0-5) /uL CSF RBC 330 (0-) /uL CSF Cell Count Tube # 3 CSF Mononuclear WBCs % 1.0 % CSF Polynuclear WBCs % 99.0 % CSF Chemistry Tube # 2 CSF Glucose < 1 L (40-70) mg/dl CSF Lactate CSF Total Protein 908.1 H (15-45) mg/dl CSF C.neoform/gat PCR (NotDetected) CSF CMV DNA (PCR) (NotDetected) CSF Enterovirus (PCR) (NotDetected) CSF E. coli K1 (PCR) (NotDetected) CSF H. influenzae (PCR) (NotDetected) CSF HSV I (PCR) (NotDetected) CSF HSV II (PCR) (NotDetected) CSF HHV 6 (PCR) (NotDetected) CSF L.monocytogenes PCR (NotDetected) CSF N. meningitidis PCR (NotDetected) CSF Parechovirus (PCR) (NotDetected) CSF S. agalactiae (PCR) (NotDetected) CSF S. pneumoniae (PCR) (NotDetected) CSF VZV DNA (PCR) (NotDetected) CSF West Nile IgM Ab Cancelled Lyme Disease IgG Ab (Negative) Lyme IgG (Western Blot) Lyme IgG 18 kDa Band Lyme IgG 23 kDa Band Lyme IgG 28 kDa Band Lyme IgG 30 kDa Band Lyme IgG 39 kDa Band Lyme IgG 41 kDa Band Lyme IgG 45 kDa Band Lyme IgG 58 kDa Band Lyme IgG 66 kDa Band Lyme IgG 93 kDa Band Lyme IgM Ab (WB) Lyme Disease IgM Ab (Negative) Lyme IgM 23 kDa Band Lyme IgM 39 kDa Band Lyme IgM 41 kDa Band COVID-19 Eval Order SARS-CoV-2 (PCR) (Negative) CMV Specimen Source CMV Qnt PCR IU/mL CMV Qnt PCR log IU/mL Herpes Virus Source HSV I DNA PCR HSV II DNA PCR 08/04/21 08/04/21 08/04/21 Range/Units 12:05 12:05 12:15 WBC RBC Hgb Hct MCV MCH MCHC RDW Std Deviation RDW Coeff of Abel Plt Count MPV Immature Gran % (Auto) Neut % (Auto) Lymph % (Auto) Power % (Auto) Eos % (Auto) Baso % (Auto) Neut # (Auto) Lymph # (Auto) Power # (Auto) Eos # (Auto) Baso # (Auto) Immature Gran # (Auto) Absolute Nucleated RBC Nucleated RBC % (auto) Neutrophils % (Manual) Band Neutrophils % Lymphocytes % (Manual) Prolymphocyte % Reactive Lymphs % (Man) Monocytes % (Manual) Eosinophils % (Manual) Basophils % (Manual) Metamyelocytes % (Man) Myelocytes % (Man) Promyelocytes % (Man) Blast Cells % (Manual) Plasma Cell % (Manual) Other Cells % Nucleated RBC % Neutrophils # (Manual) Band Neutrophils # Total Absolute Neuts Lymphocytes # (Manual) Prolymphocyte # Reactive Lymphs # Total Abs Lymphocytes Monocytes # (Manual) Eosinophils # (Manual) Basophils # (Manual) Metamyelocytes # (Man) Myelocytes # (Manual) Promyelocytes # (Man) Blast Cells # (Man) Plasma Cell # (Manual) Other Cells # Nucleated RBCs # (Man) Hypersegmented Neuts Hyposegmented Neuts Hypogranular Neuts Large Granular Lymphs # Lrg Granular Lymphs Hairy Cells Smudge Cells Toxic Granulation Toxic Vacuolation Dohle Bodies Ruben Rods Platelet Estimate Hypogranular Platelets Clumped Platelets Giant Platelets Platelet Satelliting RBC Morphology Polychromasia Hypochromasia Poikilocytosis Basophilic Stippling Anisocytosis Microcytosis Macrocytosis Spherocytes Pappenheimer Bodies Sickle Cells Target Cells Tear Drop Cells Ovalocytes Stomatocytes Jordan-Witmer Bodies Echinocytes Acanthocytes (Spur) Rouleaux RBC Agglutinates Schistocytes RBC Morph Comment Sezary Cell ABG pH (7.35-7.45) ABG pCO2 (35-46) mmHg ABG pO2 (80-95) mmHg ABG HCO3 (19-24) mmol/L ABG O2 Saturation (90-95) % ABG Base Excess (-9-1.8) mEq/L Pankaj Test (Pos) Barometric Pressure mm/Hg Oxygen Given Sodium (136-145) mmol/L Potassium (3.5-5.1) mmol/L Chloride (98-107) mmol/L Carbon Dioxide (21-32) mmol/L Anion Gap (3-11) BUN (7-18) mg/dl Creatinine (0.6-1.4) mg/dl Est Cr Clr Drug Dosing ml/min Est GFR ( Amer) ml/min Est GFR (Non-Af Amer) ml/min BUN/Creatinine Ratio (10-20) Glucose (70-99) mg/dl Lactate (0.4-2.0) mmol/L Calcium (8.5-10.1) mg/dl Total Bilirubin (0.2-1) mg/dl AST (15-37) U/L ALT (12-78) U/L Alkaline Phosphatase (45-117) U/L Total Creatine Kinase (39-308) U/L Total Protein (6.4-8.2) gm/dl Albumin (3.4-5.0) gm/dl Globulin (2.5-4.0) gm/dl Albumin/Globulin Ratio (0.9-2) Procalcitonin (0-0.5) ng/ml Specimen Hemolysis Urine Color Yellow Urine Appearance Clear (Clear) Urine pH 5.5 (4.5-7.5) Ur Specific [place] 1.016 (1.000-1.030) Urine Protein Negative (Negative) Urine Glucose (UA) Negative (Negative) Urine Ketones Negative (Negative) Urine Blood 1+ H (Negative) Urine Nitrite Positive A (Negative) Urine Bilirubin Negative (Negative) Urine Urobilinogen Negative (Negative) Ur Leukocyte Esterase 1+ H (Negative) Urine WBC (Auto) 10-30 H (0-5) /hpf Urine RBC (Auto) 0-4 (0-4) /hpf U Hyaline Cast (Auto) 1-5 (0-5) /lpf U Epithel Cells (Auto) 10-20 H (0-5) /lpf Urine Bacteria (Auto) 2+ H (Negative) Fluid Comment CSF Appearance CSF Color Xanthrochromic CSF WBC (0-5) /uL CSF RBC (0-) /uL CSF Cell Count Tube # CSF Mononuclear WBCs % % CSF Polynuclear WBCs % % CSF Chemistry Tube # CSF Glucose (40-70) mg/dl CSF Lactate Cancelled CSF Total Protein (15-45) mg/dl CSF C.neoform/gat PCR Not Detected (NotDetected) CSF CMV DNA (PCR) Not Detected (NotDetected) CSF Enterovirus (PCR) Not Detected (NotDetected) CSF E. coli K1 (PCR) Not Detected (NotDetected) CSF H. influenzae (PCR) Not Detected (NotDetected) CSF HSV I (PCR) Not Detected (NotDetected) CSF HSV II (PCR) Not Detected (NotDetected) CSF HHV 6 (PCR) Not Detected (NotDetected) CSF L.monocytogenes PCR Not Detected (NotDetected) CSF N. meningitidis PCR Not Detected (NotDetected) CSF Parechovirus (PCR) Not Detected (NotDetected) CSF S. agalactiae (PCR) Not Detected (NotDetected) CSF S. pneumoniae (PCR) DETECTED A* (NotDetected) CSF VZV DNA (PCR) Not Detected (NotDetected) CSF West Nile IgM Ab Lyme Disease IgG Ab (Negative) Lyme IgG (Western Blot) Lyme IgG 18 kDa Band Lyme IgG 23 kDa Band Lyme IgG 28 kDa Band Lyme IgG 30 kDa Band Lyme IgG 39 kDa Band Lyme IgG 41 kDa Band Lyme IgG 45 kDa Band Lyme IgG 58 kDa Band Lyme IgG 66 kDa Band Lyme IgG 93 kDa Band Lyme IgM Ab (WB) Lyme Disease IgM Ab (Negative) Lyme IgM 23 kDa Band Lyme IgM 39 kDa Band Lyme IgM 41 kDa Band COVID-19 Eval Order SARS-CoV-2 (PCR) (Negative) CMV Specimen Source CMV Qnt PCR IU/mL CMV Qnt PCR log IU/mL Herpes Virus Source HSV I DNA PCR HSV II DNA PCR Imaging Data Radiologist's Impression: Chest X-Ray 08/04/21 10:37 XR chest 1V portable CLINICAL HISTORY: Shortness of breath. COMPARISON STUDY: No previous studies for comparison. FINDINGS: Lung volumes are normal. There is minimal right basilar opacity. There is no pneumothorax or pleural effusion. Cardiac size is normal. Mediastinal contours are normal. There is no evidence for pulmonary edema. IMPRESSION: Minimal right basilar opacity. This favors atelectasis. An infectious process could appear similar. ACT 112: Negative or not required by law. Electronically signed by: Arjun Jeffries M.D. 08/04/2021 11:[address] 08/04/21 05:08 CT head/brain wo con CLINICAL HISTORY: 36 years-old Male with Headache. Acute headache TECHNIQUE: Multiple axial CT images of the head were obtained without contrast. A dose lowering technique was utilized adhering to the principles of ALARA. CT DOSE: 729.78 mGycm COMPARISON: None. FINDINGS: No acute intracranial hemorrhage, midline shift, intracranial mass, hydrocephalus, territorial ischemia or abnormal extra-axial collection. The calvarium is intact. Large bilateral mastoid effusions. Fluid is also noted within the middle ear cavities bilaterally. IMPRESSION: 1. No acute intracranial abnormality. 2. Large bilateral mastoid and middle ear effusions. ACT 112: Negative or not required by law. The above report was generated using voice recognition software. It may contain grammatical, syntax or spelling errors. Electronically signed by: Kaleb Pollock M.D. 08/04/2021 6:55 AM Chest X-Ray 08/04/21 10:37 XR chest 1V portable CLINICAL HISTORY: Shortness of breath. COMPARISON STUDY: No previous studies for comparison. FINDINGS: Lung volumes are normal. There is minimal right basilar opacity. There is no pneumothorax or pleural effusion. Cardiac size is normal. Mediastinal contours are normal. There is no evidence for pulmonary edema. IMPRESSION: Minimal right basilar opacity. This favors atelectasis. An infectious process could appear similar. ACT 112: Negative or not required by law. Electronically signed by: Arjun Jeffries M.D. 08/04/2021 11:03 AM MDM Narrative Physical exam and history were performed. Nursing notes, EMR, and Medication List were personally reviewed. Patient appears to have headache symptoms bringing him to the emergency department. He does appear somewhat uncomfortable on presentation but is afebrile without distinct meningismus. He has had symptoms of headaches in the past, but this does seem worse than normal according to the mother. Some of his presentation is limited due to his underlying intellectual disability. IV access was established and labs were obtained. The patient was hydrated with normal saline and given IV morphine, IV Benadryl, IV Tylenol, and IV Compazine. He was sent immediately to CT scan for further evaluation. The patient's blood work is as above and was reviewed. He does have an elevated white blood cell count of 16,000. He is mildly anemic at 13.7. Transaminases are not diagnostic. Covid is negative. Lyme IgG is POSITIVE. CT scan was reviewed by myself and radiology and does not show evidence of acute bleed or other traumatic findings. He does appear to have bilateral effusions of the ears. On reevaluation the patient feels much better from a pain standpoint, and was able to rest comfortably in the ER bed. I discussed the findings at length with patient's mother. Utilizing shared decision making we did begin the patient on Rocephin here in the ER. Possibility of meningitis was discussed, however the patient does seem improved upon initial presentation and vitals have normalized. Additionally he does have otitis and Lyme which may also explain his symptoms. We did attempt to ambulate the patient, however he was unsteady getting out of bed. The patient's mother was concerned that if he were to fall at home she would not be able to help him up. I did offer admission versus continued monitoring here in the ER. The patient's mother is concerned as he does not have insurance, nor does he have a primary care physician. I did engage with case management to see if we could help him with services, however they live out of the [facility] and resources are overall limited from that aspect. After further discussion with patient's mother, she does feel it is reasonable to watch him here in the department and see if he improves. The patient remained in stable condition until the time of shift change. The patient will need reevaluated in the next 1 to 2 hours. The case was discussed with my colleague, Shayne Vasquez PA-C, who will assume care at this time. Discharge paperwork was completed assuming patient is stable for discharge home, and prescription for Doxy was sent to his pharmacy. The see Mr. Vasquez's dictation for further patient course, plan, and disposition. The chart was completed utilizing [email or web address] Speech Voice Recognition Software. Grammatical errors, random word insertions, pronoun errors, and incomplete sentences are an occasional consequence of this system due to software limitations, ambient noise, and hardware issues. Any formal questions or concerns about the content, text, or information contained within the body of this dictation should be directly addressed to the provider for clarification. . Impression & Plan Headache, Lyme disease, Acute effusion of both middle ears Discharge Plan Visit Data Chief Complaint: Head Pain Stated Complaint: HEAD PAIN ED Provider: [facility] ED Midlevel Provider: Contreras Vasquez Discharge Problem: Headache, Lyme disease, Acute effusion of both middle ears Patient Disposition: Admitted As Inpatient Condition: Good Discharge Instructions Interventions: ED Discharge Assessment Last Done: 08/04/21 14:00
[2021-08-04] MEDS ORDERED: ACETAMINOPHEN 1000 MG/100 ML IV IV ONE (21:32)
--- NOTE | 2021-08-04 21:51 | Anesthesiology Consultation ---
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 Surgery Operation Date: 08/05/21 08:10 Proposed Procedures p Bilateral Myringotomy with Tubes - Jerson Rodriguez MD Height/Weight Height: 5 ft 10 in Weight: 106.7 kg Allergies Allergy/AdvReac Type Severity Reaction Status Date / Time No Known Allergies Allergy Verified 08/04/21 13:27 Medications Home Medications Medication Instructions Recorded Confirmed Last Taken doxycycline hyclate 100 mg capsule 100 mg PO BID 28 Days #56 cap 08/04/21 Unknown Active Medications Generic Name Dose Route Start Last Admin Trade Name Freq PRN Reason Stop Dose Admin Sodium Chloride 1,000 mls @ 150 mls/hr 08/04/21 14:06 08/04/21 20:19 Nss 1000ml IV 08/05/21 10:05 150 mls/hr .[id number] SHAILESH Administration Ceftriaxone Sodium 2,000 mg/ 70 mls @ 100 mls/hr 08/04/21 19:00 08/04/21 20:18 Dextrose IV 08/14/21 18:59 Infused Q12H SHAILESH Infusion Protocol Dexamethasone 10 mg/ Syringe 2.5 mls @ 1 mls/min 08/04/21 16:00 08/04/21 20:21 IV 08/08/21 04:03 1 mls/min Q6H SHAILESH Administration Vancomycin HCl 1,500 mg/ 530 mls @ 200 mls/hr 08/04/21 18:00 08/04/21 20:30 Sodium Chloride IV 08/14/21 17:59 Infused Q8H SHAILESH Infusion Protocol Dexmedetomidine HCl 200 mcg/ 50 mls @ 0 mls/hr 08/04/21 18:30 08/04/21 21:23 Sodium Chloride IV 08/08/21 18:29 0 mcg/kg/hr .Q0M SHAILESH 0 mls/hr Titration Protocol 0 MCG/KG/HR Morphine Sulfate 2 mg 08/04/21 16:32 08/04/21 19:46 Morphine Sulfate 2 Mg/Ml Carp IV 08/18/21 16:31 2 mg Q3H PRN Administration Pain Past Medical History Medical History Intellectual disability Past Surgical History Surgical History No significant past surgical history Social History Smoking Status: Current every day smoker Physical Exam Vital Signs Last Vital Signs Temp 103.3 F H 08/04/21 20:11 Pulse 70 08/04/21 20:11 Resp 21 08/04/21 20:11 BP 133/73 08/04/21 18:01 Pulse Ox 99 08/04/21 19:00 Testing Laboratory Results 08/04/21 06:40 08/04/21 14:36 Urine Color Yellow 08/04/21 12:15 Urine Appearance Clear (Clear) 08/04/21 12:15 Urine pH 5.5 (4.5-7.5) 08/04/21 12:15 Ur Specific [place] 1.016 (1.000-1.030) 08/04/21 12:15 Urine Protein Negative (Negative) 08/04/21 12:15 Urine Glucose (UA) Negative (Negative) 08/04/21 12:15 Urine Ketones Negative (Negative) 08/04/21 12:15 Urine Nitrite Positive (Negative) A 08/04/21 12:15 Ur Leukocyte Esterase 1+ (Negative) H 08/04/21 12:15 Urine WBC (Auto) 10-30 /hpf (0-5) H 08/04/21 12:15 Urine RBC (Auto) 0-4 /hpf (0-4) 08/04/21 12:15 U Hyaline Cast (Auto) 1-5 /lpf (0-5) 08/04/21 12:15 U Epithel Cells (Auto) 10-20 /lpf (0-5) H 08/04/21 12:15 Urine Bacteria (Auto) 2+ (Negative) H 08/04/21 12:15 08/04/21 12:05 Cryptococcal Antigen Test - Final Cerebral Spinal Fluid 08/04/21 12:05 Gram Stain - Final Cerebral Spinal Fluid 08/04/21 13:01 POC Glucose 118 H Laboratory Tests 08/04/21 05:38 SARS-CoV-2 (PCR) NEGATIVE Chest X-Ray Date: 08/04/21 IMPRESSION: Minimal right basilar opacity. This favors atelectasis. An infectious process could appear similar.
[2021-08-05] MEDS ORDERED: LORazepam 2 MG/4 ML VIAL IV PRN (00:03)
[2021-08-05] MEDS: MoRPHine SULFATE 2 MG/ML CARP IV PRN (02:34)
[2021-08-05] MEDS: VANCOMYCIN HCL 1,500 MG in SODIUM CHLORIDE 0.9% 500 ML IV SCH ×2 (02:37→11:22)
[2021-08-05] MEDS: SODIUM CHLORIDE 0.9% 1000ML 1,000 ML IV SCH (03:46)
[2021-08-05] MEDS: dexAMETHasone 10 MG in SYRINGE 0 ML IV SCH ×4 (03:47→20:06)
[2021-08-05 06:04] LABS: Hematocrit (blood only) 36.1 % (42-52); Hemoglobin 12.6 g/dL (14.0-18.0); Mean Corpuscular Hemoglobin 28.3 pg (25-34); Mean Corpuscular Hgb Conc 34.9 g/dL (32-36); Mean Corpuscular Volume 81.1 fL (80-100); Mean Platelet Volume 8.6 fL (7.4-10.4); Platelet Count 151 K/uL (130-400); RDW Coefficient of Variation 13.7 % (11.5-14.5); Red Blood Count 4.45 M/uL (4.7-6.1); White Blood Count 26.97 K/uL (4.8-10.8)
[2021-08-05] MEDS ORDERED: PROPOFOL IV EMULSION 10 MG/ML 20 ML VIAL IV ONE (06:33)
[2021-08-05] MEDS ORDERED: LIDOCAINE 2% 2 ML VIAL/AMP(20MG/ML) INFIL ONE (06:33)
[2021-08-05] MEDS ORDERED: ONDANSETRON INJ 2 MG/ML 2 ML VIAL ONE (06:33)
[2021-08-05] MEDS ORDERED: DEXAMETHASONE SOD INJ 4 MG/ML VIAL ONE (06:33)
[2021-08-05] MEDS ORDERED: fentaNYL citrate 100 MCG/2 ML VIAL ONE (06:33)
[2021-08-05] MEDS ORDERED: MIDAZOLAM HCL 1 MG/ML 2ML VIAL ONE (06:33)
[2021-08-05 06:40] LABS: Albumin Globulin Ratio 0.7 (0.9-2); BUN Creatinine Ratio 11.9 (10-20); Calcium 9.2 mg/dl (8.5-10.1); Creatinine Clr Calc Pharmacy 131.3 ml/min; Est GFR (African American) 118.2 ml/min; Globulin 4.5 gm/dl (2.5-4.0); Magnesium 1.8 mg/dl (1.8-2.4); Potassium 3.4 mmol/L (3.5-5.1); Total Protein 7.5 gm/dl (6.4-8.2)
[2021-08-05 06:44] LABS: Bilirubin,Total 0.6 mg/dl (0.2-1)
[2021-08-05] MEDS ORDERED: OXYMETAZOLINE 0.05% 30 ML BTL ONE (07:09)
[2021-08-05] MEDS ORDERED: SILVER NITR/POTASSIUM NITRATE APPLICATOR ONE (07:09)
[2021-08-05] MEDS ORDERED: KETAMINE 50 MG/5 ML SYRINGE ONE (07:09)
[2021-08-05] MEDS ORDERED: OFLOXACIN 0.3% 75 DROPS/5 ML BTL ONE (07:10)
--- NOTE | 2021-08-05 07:12 | Ears,Nose,Throat Progress Note ---
Date of Service August 05, 2021 Assessment & Plan (1) Right serous otitis media: (2) Left acute otitis media: (3) Meningitis: Plan: 36yM with complicated L AOM and R OME and meningitis. CT IAC with tegmen dehiscence L>R. No coalescent mastoiditis. -Bilateral myringotomy today -Continue IV abx -Will need MRI IAC -Will continue to follow Admission and Anticipated Discharge Date Admission Date: August 04, 2021 Subjective Febrile and agitated overnight. Not following commands Physical Exam Physical Exam: Agitated, not following commands Eyes closed No postauricular erythema, bogginess, fluctuance, proptosis L TM with mild erythema, purulence in middle ear space R TM without erythema, middle ear effusion Results & Data ([facility]) Vital Signs (Past 12 Hours) Vital Signs Temp Pulse Resp Pulse Ox Pulse Ox 08/05/21 06:00 39.8 C H 103 H 99 08/05/21 05:00 101 H 34 H 97 08/05/21 04:00 39.8 C H 20 89 L 08/05/21 03:00 39.7 C H 102 H 33 H 96 08/05/21 02:00 39.6 C H 102 H 20 98 08/05/21 01:00 39.3 C H 105 H 23 08/05/21 00:00 39.1 C H 96 H 93 95 08/04/21 23:00 39.2 C H 109 H 21 94 08/04/21 22:01 39.8 C H 82 29 H 95 08/04/21 21:01 39.5 C H 97 08/04/21 20:11 39.6 C H 70 21 PG Care Time/CCT Total # of Minutes Spent Total Time Spent with Patient: Total time spent is greater than 50% in coordination of care (as documented) at patient's floor/unit and/or counseling p atient: Coding Level of Care Code 39094 Subseq Hosp Care Lvl 2 Diagnoses Right serous otitis media H65.91 Left acute otitis media H66.92 Meningitis G03.9
[2021-08-05 07:37] LABS: Estimated Average Glucose 108 mg/dl; Hemoglobin A1C 5.4 % (4.5-5.6)
--- NOTE | 2021-08-05 07:44 | Post Operative Brief Note ---
PG Immediate Post Op with CF Date of Surgery August 05, 2021 Pre & Post Diagnosis Operation Date: 08/05/21 08:10 <No data on this case meets the specified criteria> I identified the patient and participated in the time-out.: Yes Procedure Operation Date: 08/05/21 08:10 <No data on this case meets the specified criteria> Surgeon Jerson Rodriguez MD Supervisor Record Press none Estimated Blood Loss 1 Findings See Below Bilateral serous effusions, no tube placed. L middle ear fluid sent for culture and beta 2 transferrin
--- NOTE | 2021-08-05 07:44 | Critical Care Progress Note ---
Date of Service August 05, 2021 Assessment & Plan (1) Acute respiratory distress: Plan: Reason Critically Ill: This is a 36-year-old gentleman with a history of intellectual disability as well as previous meningitis, treated at [facility], who presented to [facility] with his mother for altered mental status and head pain, found to have laboratories and imaging concerning for S. pneumoniae meningitis. Neuro - [facility] ICU: POSITIVE Sedation: None Analgesia: Tylenol 1000mg IV q8h p.r.n., morphine 3mg IV q3h, Toradol 30mg x 1 Encephalopathy * Responsive to painful stimuli on exam. * Secondary to acute bacterial meningitis and sepsis -- see ID below * Likely compounded, at present, by Ativan and morphine needed in the ED * No significant lyte or hematologic abnormalities at this time Agitated Delirium * Suspect component of overlying agitated delirium given restlessness, cooperativity * Continue treatment for meningitis, encephalopathy as aforementioned * Add low-dose Zyprexa -- monitor response, consider additional doses p.r.n. Cardiac - Tachycardia * Suspect secondary to sepsis and inflammatory state in setting of meningitis * Appearing euvolemic, lytes consistent with the same * Continue sepsis management and NSS @ 150 Respiratory - Tachypnea / Respiratory Distress / Respiratory Alkalosis * CXR revealing of a small R basilar opacity - otherwise clear * Early during presentation, developed tachypnea (up to rates of 45) without hypoxia. Put on BiPAP * Initial ABG revealing of pH 7.46 / pCO2 30 / HCO3 21 - no gap - c/w respiratory alkalosis * Suspect likely secondary to hyperventilation in setting of pain, meningitis * Tachypnea ongoing, but stable on RA. Bilateral Mastoid and Middle Ear Effusions -- s/p b/l myringotomy 08/05 * Initially appreciated on CT-H. Dedicated CT-IAC revealing of complete opacification of middle ears. * ENT consulted - appreciate insight and recommendations - L AOM and R OME may be source of meningitis - No evidence of mastoiditis. Evidence of tegmoid dishesence (L>R). - s/p bilateral myringotomy on 08/05 - Will require MRI once stabilized GI - * NPO. Will require speech evaluation prior to diet resumption, when appropriate. RENAL/LYTES - Respiratory Alkalosis - as noted above. * No acute needs otherwise. Monitor BMP. - * Berman catheter. Monitor I&Os. ENDO - * No known history of endocrinologic diseases. ICU hyperglycemia protocol. HEME - * H&H stable. Monitor. ID - Bacterial Meningitis -- PCR positive for Strep. pneumo. * Patient with known history of bacterial meningitis in the past. Unfortunately, details about this are unavailable. * Suspect secondary to AOE/OME, as above * Work-up revealing of the following: - Symptomatically was reporting MENENDEZ and mother said he was not acting himself. - Leukocytosis to 27 with left shift. +Lactate. Tm 39.7. BPs stable. - Head CT revealing of large bilateral mastoid and middle ear effusions, CT- AIC as abovre - LP revealing of significant leukocytosis (8500) with 99% PMNs, undetectably low glucose - BCX, UCX, CSF CX pending - CSF Pathogen Panel: Positive for Streptococcus pneumoniae . Negative otherwise, including cryptococcus. * ID consulted -- appreciate insight and recommendations - Will continue CFTX q12, vancomycin q12, dexamethasone 10mg q6h - Await culture/sensitivities. Recommend ENT consult. - Await formal ID consult report - ENT consulted, as above - s/p myringotomy * Cooling blanket * Tylenol 1g IV q8h for fever * Consider neurology consultation if clinical picture is deteriorating / to aid in need for serial lumbar punctures / need for drain - appreciate insight and recommendations Sepsis * Secondary to S. pneumoniae meningitis. See work-up above. Lactate peaked at 5.8, now downtrending. Good capillary refill and pulses on exam. * Has received about 5L of fluids since arriving here. UOP adequate - about 0.80mL/kg/hr. Continue NSS for now. Maintain UOP >0.5cc/kg/hr, MAP > 65, BSG ~150-180. * Continue antimicrobial therapy as above * Follow cultures INTEGUMENTARY - No acute needs at this time. LINES/IV ACCESS - PIVs intact. DVT PROPHYLAXIS - Heparin SQ Thank you for allowing us to be part of this patient's care. Please refer to Dr. Pickering's documentation for any further recommendations. (2) Intellectual disability: (3) Meningitis: (4) Headache: (5) Lyme disease: (6) Acute effusion of both middle ears: Admission and Anticipated Discharge Date Admission Date: August 04, 2021 Supervising Physician Co-Signing Physician Notes Patient seen and examined. EMR reviewed. Discussed on several occasions with critical care QUANG overnight and with family practice resident this morning. He was presented and discussed on multidisciplinary rounds as well. Over the last 24 hours the patient has had clinical deterioration requiring intubation mechanical ventilation and initiation of 2 vasopressor agents. He is also developed a GI bleed. GI was consulted and recommended referral to a tertiary center with capabilities of angiography for potential embolization. He has received packed cells. His CPK was elevated and raises the possibility of pyomyositis. I think he needs surgical evaluation of the lower extremity to ensure there is no deep-seated infection driving this process. It does not appear that we have source control currently as he remains febrile tachycardic hypotensive and and severe sepsis. [facility] has been contacted and is grac iously accepted the patient in transfer. Continue antibiotics for now. He will likely require work-up for his GI bleed as well as potential surgical evaluation of the lower extremities. Discussed extensively with the bedside critical care nurse as well. Subjective No significant events overnight. Fever continued to 39.7 (Tm). Unable to provide meaningful history otherwise. Continues to be restless, agitated. Mumbling. Review of Systems Review of Systems: Unobtainable due to cognitive status and Unobtainable due to reduced consciousness Physical Exam Physical Exam: General: Tired and ill-appearing 36-year-old gentleman who is lying back in his hospital bed, appearing aggrevated and restless. He is responsive to pain, but not to voice. HEENT: NCAT. Eyes - Sclera are white, anicteric, and without injection. PERRL. Mouth - MMM with no tonsillar edema or exudates. Ears - cotton balls in place s/p surgery. No TTP posterior to the auricle. No TTP (facial grimces) across the frontal/maxillary sinuses Neck - supple and without LAD. Cardiac: Tachycardic with regular rhythm; S1 and S2 present with no murmurs, rubs, or gallops. Pulmonary: Good respiratory effort with symmetric expansion of the chest. Tachypneic. No use of accessory muscles. Lungs were clear to auscultation bilaterally with no crackles or wheezes. Abdominal: Normoactive bowel sounds. Abdomen was soft, nondistended, and non- tender to palpation. Extremities: Upper and lower extremities are warm and well perfused. Radial and dorsalis pedis pulses were 2+ b/l. Capillary refill assessed in UE was < 3 sec. Neuro: Patient extremely resistant to exam. - Cranial Nerves: CN I, IX, and X - not assessed. II - PERRL. III - Corneal reflex in-tact. II/VIII - oculocephalic reflex in tact. XII - no tongue deviation - Motor: Normal tone, without spasticity, in the upper and lower extremities. - Sensation: Unable to assess - Reflexes - Biceps 3+ b/l; patellar 3+ b/l. No clonus. Results & Data Results & Data ([facility]) Vital Signs (Past 12 Hours) Vital Signs Temp Pulse Pulse Resp BP Pulse Ox Pulse Ox 08/05/21 07:10 39.7 C H 103 H 32 H 167/94 H 96 08/05/21 06:00 39.8 C H 103 H 99 08/05/21 05:00 101 H 34 H 97 08/05/21 04:00 39.8 C H 20 89 L 08/05/21 03:00 39.7 C H 102 H 33 H 96 08/05/21 02:00 39.6 C H 102 H 20 98 08/05/21 01:00 39.3 C H 105 H 23 08/05/21 00:00 39.1 C H 96 H 93 95 08/04/21 23:00 39.2 C H 109 H 21 94 08/04/21 22:01 39.8 C H 82 29 H 95 08/04/21 21:01 39.5 C H 97 08/04/21 20:11 39.6 C H 70 21 Resident Activity Tracking Resident Involvement: Resident Care Provided Care Provided: Adult Hospital Medicine
[2021-08-05] MEDS ORDERED: LORazepam 2 MG/4 ML VIAL ONE (08:18)
[2021-08-05] MEDS ORDERED: LORazepam 0.5 MG/1 ML VIAL IV STA ×2 (08:19→13:28)
[2021-08-05] MEDS: cefTRIAXone SODIUM 2,000 MG in DEXTROSE 5% 50 ML IV SCH ×2 (08:24→20:05)
[2021-08-05] MEDS: ACETAMINOPHEN 1,000 MG/100 ML VIAL IV PRN (08:33)
--- NOTE | 2021-08-05 09:27 | Anesthesiology Progress Note ---
Date of Service August 05, 2021 Anesthesia Post Procedure Vital Signs Vital Signs: Temp Pulse Pulse Resp BP BP Pulse Ox 08/05/21 07:10 39.7 C H 103 H 32 H 167/94 H 96 08/05/21 06:00 39.8 C H 103 H 99 08/05/21 05:00 101 H 34 H 97 08/05/21 04:00 39.8 C H 20 89 L 08/05/21 03:00 39.7 C H 102 H 33 H 96 08/05/21 02:00 39.6 C H 102 H 20 98 08/05/21 01:00 39.3 C H 105 H 23 08/05/21 00:00 39.1 C H 96 H 93 08/04/21 23:00 39.2 C H 109 H 21 94 08/04/21 22:01 39.8 C H 82 29 H 95 08/04/21 21:01 39.5 C H 97 08/04/21 20:11 39.6 C H 70 21 08/04/21 19:00 38.3 C H 99 H 35 H 99 08/04/21 18:01 38.1 C H 87 27 H 133/73 97 08/04/21 17:00 38.1 C H 101 H 26 H 139/82 96 08/04/21 16:00 38.9 C H 88 34 H 163/83 H 95 08/04/21 15:00 39.2 C H 97 H 29 H 140/72 98 08/04/21 14:55 104 H 36 H 99 08/04/21 14:37 39.1 C H 08/04/21 14:00 98 H 26 H 167/78 H 92 08/04/21 13:05 38.6 C H 86 16 129/88 97 08/04/21 11:47 94 H 24 114/76 98 08/04/21 11:15 102 H 26 H 129/52 L 97 08/04/21 11:10 93 H 35 H 96 08/04/21 10:54 98 H 46 H 164/80 H 97 08/04/21 10:20 88 26 H 145/72 H 95 08/04/21 09:57 67 16 143/68 H 95 Pulse Ox 08/05/21 07:10 08/05/21 06:00 08/05/21 05:00 08/05/21 04:00 08/05/21 03:00 08/05/21 02:00 08/05/21 01:00 08/05/21 00:00 95 08/04/21 23:00 08/04/21 22:01 08/04/21 21:01 08/04/21 20:11 08/04/21 19:00 08/04/21 18:01 08/04/21 17:00 08/04/21 16:00 08/04/21 15:00 08/04/21 14:55 08/04/21 14:37 08/04/21 14:00 08/04/21 13:05 08/04/21 11:47 08/04/21 11:15 08/04/21 11:10 08/04/21 10:54 08/04/21 10:20 08/04/21 09:57 Transfer of Care Handoff Completed per policy Notes Mental Status: alert / awake / arousable and participated in evaluation Patient Amnestic to Procedure: Yes Nausea / Vomiting: adequately controlled Pain: adequately controlled Airway Patency, RR, SpO2: stable & adequate BP & HR: stable & adequate Hydration State: stable & adequate Anesthetic Complications: no major complications apparent
[2021-08-05] MEDS ORDERED: VANCOMYCIN TROUGH ONE (09:30)
--- NOTE | 2021-08-05 09:37 | Operative Report (OR) ---
DATE OF SERVICE: 08/05/2021 PREOPERATIVE DIAGNOSIS: Bilateral otitis media. POSTOPERATIVE DIAGNOSES: 1. Bilateral serous otitis media. 2. Meningitis. PROCEDURE: Bilateral myringotomy. SURGEON: Jerson Rodriguez MD. ANESTHESIA: General, orotracheal. ESTIMATED BLOOD LOSS: 1 mL. INTRAOPERATIVE FINDINGS: Serous effusions bilaterally, left effusion sent for culture and beta-2 transferrin. COMPLICATIONS: None. SPECIMENS: Left middle ear fluid. INDICATIONS FOR THE PROCEDURE: The patient is a 36-year-old male with a history of chronic serous otitis media who presented to the Emergency Room with otalgia and headache. He deteriorated in the Emergency Room and became febrile and altered. Workup revealed strep pneumo meningitis. He was admitted to the ICU for further management. Head imaging showed bilateral serous effusions and there was concern for a left acute otitis media. CT IAC showed tegmen dehiscence, worse on the left. It was recommended he undergo bilateral myringotomy in the operating room due to his mental status. The risks and benefits of the procedure were discussed in detail with the patient's mother who elected to proceed with surgery. Informed consent was obtained. A preprocedure COVID test was negative. DESCRIPTION OF PROCEDURE: The patient was identified in the preoperative holding area and brought back to the operating room. He was placed supine on the operating room table. After the successful induction of general orotracheal anesthesia by the Anesthesia team, the patient was prepped and draped in the usual fashion for bilateral myringotomy. A surgical timeout was performed. The left ear was examined under the operative microscope. The tympanic membrane was noted to be opaque with mild erythema, no evidence of bulging. A myringotomy blade was used to make a wide radial incision in the anteroinferior quadrant. Serous fluid was encountered and suctioned clear from the middle ear space. This was captured in the Lukens trap and sent for culture and beta-2 transferrin. Attention was then turned to the right ear, which was examined under the operative microscope. The tympanic membrane was noted to be intact with a serous effusion. A myringotomy blade was used to make a radial wide-field incision in the anteroinferior quadrant. Again, a serous effusion was encountered and suctioned clear. Minimal specimen was captured in the Lukens trap. Floxin drops were instilled in the bilateral ear canals and a cotton ball was placed at the external meatus. The patient was then turned over to the anesthesia team and extubated without difficulty. He was transferred back to the ICU in stable condition. I was present and performed the entire procedure myself. Job ID: [id number] [id number]
[2021-08-05] MEDS ORDERED: KETOROLAC 30 MG/ML VIAL IV ONE (09:47)
--- NOTE | 2021-08-05 10:45 | Critical Care Progress Note ---
Date of Service August 05, 2021 Assessment & Plan (1) Acute respiratory distress: Plan: Reason Critically Ill: This is a 36-year-old gentleman with a history of intellectual disability as well as previous meningitis, treated at [facility], who presented to [facility] with his mother for altered mental status and head pain, found to have laboratories and imaging concerning for S. pneumoniae meningitis. Neuro - [facility] ICU: POSITIVE Sedation: None Analgesia: Tylenol 1000mg IV q8h p.r.n., morphine 3mg IV q3h, Toradol 30mg x 1 Encephalopathy * Responsive to painful stimuli on exam. * Secondary to acute bacterial meningitis and sepsis -- see ID below * Likely compounded, at present, by Ativan and morphine needed in the ED * No significant lyte or hematologic abnormalities at this time Agitated Delirium * Suspect component of overlying agitated delirium given restlessness, cooperativity * Continue treatment for meningitis, encephalopathy as aforementioned * Add low-dose Zyprexa -- monitor response, consider additional doses p.r.n. Cardiac - Tachycardia * Suspect secondary to sepsis and inflammatory state in setting of meningitis * Appearing euvolemic, lytes consistent with the same * Continue sepsis management and NSS @ 150 Respiratory - Tachypnea / Respiratory Distress / Respiratory Alkalosis * CXR revealing of a small R basilar opacity - otherwise clear * Early during presentation, developed tachypnea (up to rates of 45) without hypoxia. Put on BiPAP * Initial ABG revealing of pH 7.46 / pCO2 30 / HCO3 21 - no gap - c/w respiratory alkalosis * Suspect likely secondary to hyperventilation in setting of pain, meningitis * Tachypnea ongoing, but stable on RA. Bilateral Mastoid and Middle Ear Effusions -- s/p b/l myringotomy 08/05 * Initially appreciated on CT-H. Dedicated CT-IAC revealing of complete opacification of middle ears. * ENT consulted - appreciate insight and recommendations - L AOM and R OME may be source of meningitis - No evidence of mastoiditis. Evidence of tegmoid dishesence (L>R). - s/p bilateral myringotomy on 08/05 - Will require MRI once stabilized GI - * NPO. Will require speech evaluation prior to diet resumption, when appropriate. RENAL/LYTES - Respiratory Alkalosis - as noted above. * No acute needs otherwise. Monitor BMP. - * Berman catheter. Monitor I&Os. ENDO - * No known history of endocrinologic diseases. ICU hyperglycemia protocol. HEME - * H&H stable. Monitor. ID - Bacterial Meningitis -- PCR positive for Strep. pneumo. * Patient with known history of bacterial meningitis in the past. Unfortunately, details about this are unavailable. * Suspect secondary to AOE/OME, as above * Work-up revealing of the following: - Symptomatically was reporting MENENDEZ and mother said he was not acting himself. - Leukocytosis to 27 with left shift. +Lactate. Tm 39.7. BPs stable. - Head CT revealing of large bilateral mastoid and middle ear effusions, CT- AIC as abovre - LP revealing of significant leukocytosis (8500) with 99% PMNs, undetectably low glucose - BCX, UCX, CSF CX pending - CSF Pathogen Panel: Positive for Streptococcus pneumoniae . Negative otherwise, including cryptococcus. * ID consulted -- appreciate insight and recommendations - Will continue CFTX q12, vancomycin q12, dexamethasone 10mg q6h - Await culture/sensitivities. Recommend ENT consult. - Await formal ID consult report - ENT consulted, as above - s/p myringotomy * Cooling blanket * Tylenol 1g IV q8h for fever * Consider neurology consultation if clinical picture is deteriorating / to aid in need for serial lumbar punctures / need for drain - appreciate insight and recommendations Sepsis * Secondary to S. pneumoniae meningitis. See work-up above. Lactate peaked at 5.8, now downtrending. Good capillary refill and pulses on exam. * Has received about 5L of fluids since arriving here. UOP adequate - about 0.80mL/kg/hr. Continue NSS for now. Maintain UOP >0.5cc/kg/hr, MAP > 65, BSG ~150-180. * Continue antimicrobial therapy as above * Follow cultures INTEGUMENTARY - No acute needs at this time. LINES/IV ACCESS - PIVs intact. DVT PROPHYLAXIS - Heparin SQ Patient remains critically ill. He was discussed on multidisciplinary rounds as well as with the bedside critical care nurse. Total of 45 minutes critical care time was spent evaluation management stabilization of this patient. (2) Intellectual disability: (3) Meningitis: (4) Headache: (5) Lyme disease: (6) Acute effusion of both middle ears: Admission and Anticipated Discharge Date Admission Date: August 04, 2021 Subjective No significant events overnight. Fever continued to 39.7 (Tm). Unable to provide meaningful history otherwise. Continues to be restless, agitated. Mumbling. Review of Systems Review of Systems: Unobtainable due to reduced consciousness Physical Exam Physical Exam: General: Tired and ill-appearing 36-year-old gentleman who is lying back in his hospital bed, appearing aggrevated and restless. He is responsive to pain, but not to voice. HEENT: NCAT. Eyes - Sclera are white, anicteric, and without injection. PERRL. Mouth - MMM with no tonsillar edema or exudates. Ears - cotton balls in place s/p surgery. No TTP posterior to the auricle. No TTP (facial grimces) across the frontal/maxillary sinuses Neck - supple and without LAD. Cardiac: Tachycardic with regular rhythm; S1 and S2 present with no murmurs, rubs, or gallops. Pulmonary: Good respiratory effort with symmetric expansion of the chest. Tachypneic. No use of accessory muscles. Lungs were clear to auscultation bilaterally with no crackles or wheezes. Abdominal: Normoactive bowel sounds. Abdomen was soft, nondistended, and non-tender to palpation. Extremities: Upper and lower extremities are warm and well perfused. Radial and dorsalis pedis pulses were 2+ b/l. Capillary refill assessed in UE was < 3 sec. Neuro: Patient extremely resistant to exam. - Cranial Nerves: CN I, IX, and X - not assessed. II - PERRL. III - Corneal reflex in-tact. II/VIII - oculocephalic reflex in tact. XII - no tongue deviation - Motor: Normal tone, without spasticity, in the upper and lower extremities. - Sensation: Unable to assess - Reflexes - Biceps 3+ b/l; patellar 3+ b/l. No clonus. Results & Data Results & Data ([facility]) Vital Signs (Past 12 Hours) Vital Signs Temp Pulse Pulse Resp BP Pulse Ox Pulse Ox 08/05/21 07:10 39.7 C H 103 H 32 H 167/94 H 96 08/05/21 06:00 39.8 C H 103 H 99 08/05/21 05:00 101 H 34 H 97 08/05/21 04:00 39.8 C H 20 89 L 08/05/21 03:00 39.7 C H 102 H 33 H 96 08/05/21 02:00 39.6 C H 102 H 20 98 08/05/21 01:00 39.3 C H 105 H 23 08/05/21 00:00 39.1 C H 96 H 93 95 08/04/21 23:00 39.2 C H 109 H 21 94 Critical Care Results & Data Vital Signs (Past 12 Hours) Vital Signs Temp Pulse Pulse Resp BP Pulse Ox Pulse Ox 08/05/21 07:10 39.7 C H 103 H 32 H 167/94 H 96 08/05/21 06:00 39.8 C H 103 H 99 08/05/21 05:00 101 H 34 H 97 08/05/21 04:00 39.8 C H 20 89 L 08/05/21 03:00 39.7 C H 102 H 33 H 96 08/05/21 02:00 39.6 C H 102 H 20 98 08/05/21 01:00 39.3 C H 105 H 23 08/05/21 00:00 39.1 C H 96 H 93 95 08/04/21 23:00 39.2 C H 109 H 21 94 Lab & Micro Results (Past 24 Hours) RBC 4.45 M/uL (4.7-6.1) L 08/05/21 WBC 26.97 K/uL (4.8-10.8) H 08/05/21 Hgb 12.6 g/dL (14.0-18.0) L 08/05/21 Hct 36.1 % (42-52) L 08/05/21 MCV 81.1 fL (80-100) 08/05/21 MCH 28.3 pg (25-34) 08/05/21 MCHC 34.9 g/dL (32-36) 08/05/21 RDW Standard Deviation 41.0 fL (36.4-46.3) 08/05/21 RDW Coefficient of Variation 13.7 % (11.5-14.5) 08/05/21 Plt Count 151 K/uL (130-400) 08/05/21 MPV 8.6 fL (7.4-10.4) 08/05/21 Na 136 mmol/L (136-145) 08/05/21 K 3.4 mmol/L (3.5-5.1) L 08/05/21 Cl 106 mmol/L (98-107) 08/05/21 CO2 24 mmol/L (21-32) 08/05/21 Anion Gap 6.0 (3-11) 08/05/21 BUN 11 mg/dl (7-18) 08/05/21 Creatinine 0.96 mg/dl (0.6-1.4) 08/05/21 Estimated GFR ( Amer) 118.2 ml/min 08/05/21 Estimated GFR (Non-Af Amer) 102.0 ml/min 08/05/21 BUN/Creatinine Ratio 11.9 (10-20) 08/05/21 Glu 135 mg/dl (70-99) H 08/05/21 Ca 9.2 mg/dl (8.5-10.1) 08/05/21 Phosphorus Level 2.0 mg/dl (2.5-4.9) L 08/05/21 Total Bilirubin 0.6 mg/dl (0.2-1) 08/05/21 AST 14 U/L (15-37) L 08/05/21 ALT 13 U/L (12-78) 08/05/21 Alkaline Phosphatase 50 U/L (45-117) 08/05/21 TP 7.5 gm/dl (6.4-8.2) 08/05/21 Albumin 3.0 gm/dl (3.4-5.0) L 08/05/21 Globulin 4.5 gm/dl (2.5-4.0) H 08/05/21 Albumin/Globulin Ratio 0.7 (0.9-2) L 08/05/21 Mg 1.8 mg/dl (1.8-2.4) 08/05/21 05:41 08/05/21 Calcium Level 9.2 mg/dl (8.5-10.1) 08/05/21 05:41 08/05/21 Blood Gas Barometric Pressure 733.1 mm/Hg 08/04/21 11:25 08/04/21 Arterial Blood pH 7.46 (7.35-7.45) H 08/04/21 11:25 08/04/21 Arterial Blood Partial Pressure CO2 30 mmHg (35-46) L 08/04/21 11:25 08/04/21 Arterial Blood Partial Pressure O2 80 mmHg (80-95) 08/04/21 11:25 08/04/21 Arterial Blood HCO3 21 mmol/L (19-24) 08/04/21 11:25 08/04/21 Arterial Blood Base Excess -1.9 mEq/L (-9-1.8) 08/04/21 11:25 08/04/21 Arterial Blood Oxygen Saturation 96.7 % (90-95) H 08/04/21 11:25 08/04/21 Blood Gas Oxygen Given 21% 08/04/21 11:25 08/04/21 Pankaj Test Pos (Pos) 08/04/21 11:25 08/04/21 Blood Gas Barometric Pressure 733.1 mm/Hg 08/04/21 11:25 08/04/21 Microbiology 08/04/21 12:05 Acid Fast Bacilli Smear - Final Cerebral Spinal Fluid 08/04/21 12:15 Urine Culture - Preliminary Urine,Straight Cath Gram negative bacilli 08/04/21 12:05 Cryptococcal Antigen Test - Final Cerebral Spinal Fluid 08/04/21 12:05 Gram Stain - Final Cerebral Spinal Fluid Diagnostic Findings (Past 24 Hours) Chest X-Ray 08/04/21 10:37 XR chest 1V portable CLINICAL HISTORY: Shortness of breath. COMPARISON STUDY: No previous studies for comparison. FINDINGS: Lung volumes are normal. There is minimal right basilar opacity. There is no pneumothorax or pleural effusion. Cardiac size is normal. Mediastinal contours are normal. There is no evidence for pulmonary edema. IMPRESSION: Minimal right basilar opacity. This favors atelectasis. An infectious process could appear similar. ACT 112: Negative or not required by law. Electronically signed by: Arjun Jeffries M.D. 08/04/2021 11:03 AM Internal Auditory Canal CT 08/04/21 16:09 CT IAC BI wo con HISTORY: Strep meningitis - bilateral mastoid effusions TECHNIQUE: Multiaxial CT images of the temporal bones were performed without contrast and reformatted in the sagittal and coronal plane at the workstation by the radiologist. COMPARISON STUDY: Head CT 08/04/2021. FINDINGS: The external auditory canals appear patent. There is complete opacification of the middle ear cavities and mastoid air cells. The ossicles are intact. No erosive changes identified within the right or left scutum. No evidence for inner ear dysplasia. The 7th cranial nerves describe a normal course. Limited evaluation of the tegmen due to the motion artifact. However, there appears to be focal erosion of the left epitympanic roof measuring 3.7 mm. This is best seen on coronal image 53. There is also suggestive of a 3 mm focal erosion within the right epitympanic roof on image 70. However, no fluid collections identified within the brain. Mild hypertrophy of the adenoid tonsils. IMPRESSION: 1. Complete opacification of bilateral middle ear cavities and mastoid air cells. The ossicles appear intact. 2. Limited evaluation of the tegmen due to the motion artifact. There may be small focal erosions within the epitympanic roofs measuring 3.7 L on the left and 3 mm on the right. No definite fluid collections identified within the brain. ACT 112: Negative or not required by law. Electronically signed by: Reginald Sales M.D. 08/04/2021 8:20 PM I & O Totals 24 Hours 08/04/21 08/05/21 08/06/21 06:59 06:59 06:59 Intake Total 1100 / 1100 6983.226 / 6983.226 170 / 170 Output Total 4650 / 4650 260 / 260 Balance 1100 / 1100 2333.226 / 2333.226 -90 / -90 Cumulative 08/04/21 04:23 thru 08/05/21 09:31 Intake Total 8253.226 Output Total 4910 Balance 3343.226 RT Ventilator Mngmt (Last Documented) Ventilator Ordered Settings Respiratory Rate 32 08/05/21 07:10 Fraction of Inspired Oxygen 21 08/04/21 15:15 Ventilator - PT Measurements Respiratory Rate 32 Coding Level of Care Code Critical Care 1st 30-74 mins Diagnoses Acute respiratory distress R06.03 Intellectual disability F79 Meningitis G03.9 Headache R51.9 Lyme disease A69.20 Acute effusion of both middle ears H65.193 Time Spent (min) 45
[2021-08-05] MEDS ORDERED: POTASSIUM PHOS 3 MMOL/1 ML INFUSION IV STA (10:50)
[2021-08-05] MEDS ORDERED: OLANZapine 10 MG/2.1 ML SDV IM ONE ×3 (11:15→14:15)
[2021-08-05] MEDS ORDERED: POTASSIUM PHOSPHATE 15 MMOL in SODIUM CHLORIDE 0.9% 250 ML IV ONE (11:30)
--- NOTE | 2021-08-05 14:21 | Pharmacy Report ---
Pharmacy Abx Dose Short Note - Date of Service August 05, 2021 - Assessment & Plan Assessment 36 year old M receiving ceftraixone 2 gm q12H and vancomycin for strep pneumo meniningitis. Day #2 of antimicrobial therapy. Plan Vancomycin * Trough level of 9.5 mcg/mL is subtherapeutic, this was drawn prior to steady state but would estimate trough not at goal, would target higher dosing given severity of illness/penetration of vancomycin into CSF * Change dose to 2000 mg q8H, may need to reduce dose after therapeutic levels achieved * Trough ordered for 08/06 @1130 Pharmacy will continue to follow and will adjust dose/frequency as necessary. Thank you.
[2021-08-05] MEDS: DEXMEDETOMIDINE HCL 200 MCG in SODIUM CHLORIDE 0.9% 48 ML IV SCH ×3 (14:34→20:05)
--- NOTE | 2021-08-05 15:29 | Hospitalist Progress Note ---
Date of Service August 05, 2021 Assessment & Plan (1) Meningitis: Plan: Severe Sepsis with Encephalopathy secondary to Acute Bacterial Meningitis, Strep pneumoniae Otitis Media - s/p Myringotomy - BC pending Urine culture: gram negative bacilli Ear effusion Culture pending - still having fever spikes - continue Vanco + Ceftri + Solumedrol IV - ID consulted - on precedex continue ICU monitoring (2) Acute respiratory distress: Plan: - off Bipap (3) Lyme disease: Plan: - Positive IgM on titre, negative IgM 0 follow Lyme western blot (4) Headache: Plan: - As above. (5) Acute effusion of both middle ears: Plan: per #1 (6) Intellectual disability: Plan: - Chronic. DVT ppx: teds, heparin subq CODE: Full - I have attempted to contact the patients mother via phone at least 3 times this morning and unable to reach her or leave a voicemail on her phone. No other number listed in the chart. Will attempt to reach her again later today. Dispo: From home, likely to remain in hospital x 2 days (7) Sepsis: Admission and Anticipated Discharge Date Admission Date: August 04, 2021 Subjective ff up for sepsis, meningitis, encephalopathy patient off bipap, on room air not in distress sleeping- just received Zyprexa and Ativan per RN patient was very restless earlier no note of pain, shortness of breath, nausea/vomiting s/p myringotomy this morning no other symptoms Review of Systems Review of Systems: all noted and negative except for above Physical Exam Physical Exam: General- sleeping, not in distress,breathing with no effort or accessory muscle use Eyes- anicteric Neck- no JVD Lungs- clear breath sounds bilaterally, no rales/wheezes Heart- normal rate, regular rhythm; no murmurs Abdomen- normal bowel sounds, nondistended, soft, nontender Extremities- no pretibial edema, no calf tenderness Neuro- moves extremities equally Skin- warm & dry Results & Data Results & Data ([facility]) Vital Signs (Past 12 Hours) Vital Signs Temp Pulse Pulse Resp BP Pulse Ox Pulse Ox 08/05/21 15:00 36.8 C 08/05/21 11:00 111 H 96 08/05/21 10:00 124 H 22 88 L 08/05/21 09:00 116 H 25 H 95 08/05/21 08:00 113 H 31 H 90 100 08/05/21 07:10 39.7 C H 103 H 32 H 167/94 H 96 08/05/21 07:00 106 H 95 08/05/21 06:00 39.8 C H 103 H 99 08/05/21 05:00 101 H 34 H 97 08/05/21 04:00 39.8 C H 20 89 L all noted and reviewed including below
--- NOTE | 2021-08-05 16:19 | Electrocardiogram Report ---
Test Reason : Blood Pressure : / mmHG Vent. Rate : 104 BPM Atrial Rate : 104 BPM P-R Int : 160 ms QRS Dur : 112 ms QT Int : 344 ms P-R-T Axes : 046 -38 067 degrees QTc Int : 452 ms Poor data quality, interpretation may be adversely affected Sinus tachycardia Left axis deviation Left ventricular hypertrophy with repolarization abnormality Abnormal ECG No previous ECGs available Confirmed by Demetri Galeas ([id number]) on 08/05/2021 4:18:45 PM Referred By: REFERRED SELF Confirmed By:Demetri Galeas
[2021-08-05] MEDS: VANCOMYCIN HCL 2,000 MG in SODIUM CHLORIDE 0.9% 500 ML IV SCH (20:05)
[2021-08-06] MEDS: DEXMEDETOMIDINE HCL 200 MCG in SODIUM CHLORIDE 0.9% 48 ML IV SCH ×14 (00:51→23:19)
[2021-08-06] MEDS: VANCOMYCIN HCL 2,000 MG in SODIUM CHLORIDE 0.9% 500 ML IV SCH ×2 (04:39→13:28)
[2021-08-06] MEDS: dexAMETHasone 10 MG in SYRINGE 0 ML IV SCH ×4 (04:40→20:55)
[2021-08-06 06:04] LABS: Hematocrit (blood only) 35.4 % (42-52); Hemoglobin 12.6 g/dL (14.0-18.0); Mean Corpuscular Hemoglobin 28.8 pg (25-34); Mean Corpuscular Hgb Conc 35.6 g/dL (32-36); Mean Platelet Volume 8.7 fL (7.4-10.4); Platelet Count 169 K/uL (130-400); RDW Coefficient of Variation 13.9 % (11.5-14.5); RDW Standard Deviation 41.3 fL (36.4-46.3); Red Blood Count 4.37 M/uL (4.7-6.1); White Blood Count 18.31 K/uL (4.8-10.8)
[2021-08-06] MEDS: cefTRIAXone SODIUM 2,000 MG in DEXTROSE 5% 50 ML IV SCH ×2 (06:21→18:04)
[2021-08-06 06:57] LABS: Albumin Level 2.5 gm/dl (3.4-5.0); BUN Creatinine Ratio 20.4 (10-20); Creatinine Clr Calc Pharmacy 118.2 ml/min; Est GFR (African American) 104.9 ml/min; Est GFR (Non-African American) 90.5 ml/min; Potassium 3.3 mmol/L (3.5-5.1)
[2021-08-06 06:59] LABS: Albumin Globulin Ratio 0.5 (0.9-2); Bilirubin,Total 0.6 mg/dl (0.2-1); Total Protein 7.5 gm/dl (6.4-8.2)
[2021-08-06] MEDS: ACETAMINOPHEN 1,000 MG/100 ML VIAL IV PRN (07:30)
[2021-08-06] MEDS: MoRPHine SULFATE 2 MG/ML CARP IV PRN (07:45)
[2021-08-06] MEDS ORDERED: OLANZapine 10 MG/2.1 ML SDV IM PRN (07:54)
[2021-08-06] MEDS ORDERED: OLANZapine 10 MG/2.1 ML SDV IM ONE (07:57)
[2021-08-06] MEDS ORDERED: OFLOXACIN 0.3% 75 DROPS/5 ML BTL OTB PRN (09:19)
[2021-08-06] MEDS ORDERED: VANCOMYCIN TROUGH ONE (11:30)
--- NOTE | 2021-08-06 13:29 | Critical Care Progress Note ---
Date of Service August 06, 2021 Assessment & Plan (1) Acute respiratory distress: Plan: Continue to follow heart rate and blood pressure.Reason Critically Ill: This is a 36-year-old gentleman with a history of intellectual disability as well as previous meningitis, treated at [facility], who presented to [facility] with his mother for altered mental status and head pain, found to have laboratories and imaging concerning for S. pneumoniae meningitis. 24-hour events: Patient had been maintained on Precedex in intermittent Zyprexa intramuscularly and had been doing reasonably well. He apparently had an episode of agitation and pulled all of his IVs out. This resulted in increased agitation overnight as we are not able to give him any medication. He received additional doses of IM Zyprexa which facilitated getting an IV and is now back on Precedex. Patient's mother also notified us that the patient is likely been using heroin and there may be some component of heroin withdrawal as well. Recommendations: Neuro -agitated delirium secondary to meningitis and likely substance abuse. Continue supportive care. He is currently being maintained on Precedex. We will add scheduled Zyprexa to prevent additional episodes of agitation. Continue to monitor for withdrawal symptoms on Precedex. Hopefully we can avoid intubation. Cardiac -patient initially presented with findings concerning for sepsis likely secondary to meningitis. His tachycardia has resolved and now he is intermittently bradycardic. Appears euvolemic. Continue gentle hydration. Respiratory -patient initially required BiPAP. He was tachypneic likely compensating for underlying metabolic acidosis and potential central hyperpnea.. Currently appears resolved. Continue to follow at this point time. Chest x- ray does not demonstrate any significant pneumonia currently. GI -mental status precludes feeding. I do not think the patient would tolerate enteric access currently. Continue to follow with supportive care RENAL/LYTES -renal functions currently normal. Patient had respiratory alkalosis likely driven by his acute infectious process and potential pain and agitation. Follow urine output and electrolytes as needed - Berman catheter. Monitor I&Os. Keep in place until mental status allows for removal ENDO - * No known history of endocrinologic diseases. ICU hyperglycemia protocol. HEME - H&H stable. Monitor. ID -CSF shows no growth on the Gram stain. Polimetrix was positive for PCR pneumococcus. Urine culture growing E. coli which is pansensitive. ID consultation from [employer] has been requested but it does not appear that it has been scanned into his electronic medical record currently. The patient had bilateral otitis and is status post bilateral myringotomies by otolaryngology and is currently on ofloxacin drops. Continue high-dose Rocephin and vancomycin as well as dexamethasone, currently awaiting ID report. Fever curve and leukocytosis are improving. INTEGUMENTARY - No acute needs at this time. LINES/IV ACCESS - PIVs intact. DVT PROPHYLAXIS - Heparin SQ Patient remains critically ill. He was discussed with the bedside critical care nurse. Total of 35 minutes critical care time was spent evaluation management stabilization of this patient. No family immediately available (2) Intellectual disability: (3) Meningitis: (4) Headache: (5) Lyme disease: (6) Acute effusion of both middle ears: Admission and Anticipated Discharge Date Admission Date: August 04, 2021 Subjective Patient gabriella nonverbal and delirious. He becomes agitated with any significant manipulation. Review of Systems Review of Systems: Unobtainable due to cognitive status and Unobtainable due to reduced consciousness Physical Exam Physical Exam: General: Tired and ill-appearing 36-year-old gentleman who is lying back in his hospital bed, appearing aggrevated and restless. He is responsive to pain, but not to voice. HEENT: NCAT. Eyes - Sclera are white, anicteric, and without injection. PERRL. Mouth - MMM with no tonsillar edema or exudates. Ears - cotton balls in place s/p surgery. No TTP posterior to the auricle. No TTP (facial grimces) across the frontal/maxillary sinuses Neck - supple and without LAD. Cardiac: Tachycardic with regular rhythm; S1 and S2 present with no murmurs, rubs, or gallops. Pulmonary: Good respiratory effort with symmetric expansion of the chest. Tachypneic. No use of accessory muscles. Lungs were clear to auscultation bilaterally with no crackles or wheezes. Abdominal: Normoactive bowel sounds. Abdomen was soft, nondistended, and non- tender to palpation. Extremities: Upper and lower extremities are warm and well perfused. Radial and dorsalis pedis pulses were 2+ b/l. Capillary refill assessed in UE was < 3 sec. Neuro: Patient extremely resistant to exam. - Cranial Nerves: CN I, IX, and X - not assessed. II - PERRL. III - Corneal reflex in-tact. II/VIII - oculocephalic reflex in tact. XII - no tongue deviation - Motor: Normal tone, without spasticity, in the upper and lower extremities. - Sensation: Unable to assess - Reflexes - Biceps 3+ b/l; patellar 3+ b/l. No clonus. Results & Data Results & Data ([facility]) Vital Signs (Past 12 Hours) Vital Signs Temp Pulse Resp BP Pulse Ox 08/06/21 11:00 41 L 23 107/57 L 96 08/06/21 10:02 37.4 C 08/06/21 10:00 50 L 23 101/84 94 08/06/21 09:00 74 26 H 111/38 L 95 08/06/21 08:00 69 13 115/73 95 08/06/21 07:48 38.9 C H 08/06/21 07:00 54 L 18 115/73 95 Critical Care Results & Data Vital Signs (Past 12 Hours) Vital Signs Temp Pulse Resp BP Pulse Ox 08/06/21 11:00 41 L 23 107/57 L 96 08/06/21 10:02 37.4 C 08/06/21 10:00 50 L 23 101/84 94 08/06/21 09:00 74 26 H 111/38 L 95 08/06/21 08:00 69 13 115/73 95 08/06/21 07:48 38.9 C H 08/06/21 07:00 54 L 18 115/73 95 Lab & Micro Results (Past 24 Hours) RBC 4.37 M/uL (4.7-6.1) L 08/06/21 WBC 18.31 K/uL (4.8-10.8) H 08/06/21 Hgb 12.6 g/dL (14.0-18.0) L 08/06/21 Hct 35.4 % (42-52) L 08/06/21 MCV 81.0 fL (80-100) 08/06/21 MCH 28.8 pg (25-34) 08/06/21 MCHC 35.6 g/dL (32-36) 08/06/21 RDW Standard Deviation 41.3 fL (36.4-46.3) 08/06/21 RDW Coefficient of Variation 13.9 % (11.5-14.5) 08/06/21 Plt Count 169 K/uL (130-400) 08/06/21 MPV 8.7 fL (7.4-10.4) 08/06/21 Na 141 mmol/L (136-145) 08/06/21 K 3.3 mmol/L (3.5-5.1) L 08/06/21 Cl 113 mmol/L (98-107) H 08/06/21 CO2 23 mmol/L (21-32) 08/06/21 Anion Gap 5.0 (3-11) 08/06/21 BUN 22 mg/dl (7-18) H 08/06/21 Creatinine 1.06 mg/dl (0.6-1.4) 08/06/21 Estimated GFR ( Amer) 104.9 ml/min 08/06/21 Estimated GFR (Non-Af Amer) 90.5 ml/min 08/06/21 BUN/Creatinine Ratio 20.4 (10-20) H 08/06/21 Glu 128 mg/dl (70-99) H 08/06/21 Ca 9.0 mg/dl (8.5-10.1) 08/06/21 Total Bilirubin 0.6 mg/dl (0.2-1) 08/06/21 AST 25 U/L (15-37) 08/06/21 ALT 15 U/L (12-78) 08/06/21 Alkaline Phosphatase 49 U/L (45-117) 08/06/21 TP 7.5 gm/dl (6.4-8.2) 08/06/21 Albumin 2.5 gm/dl (3.4-5.0) L 08/06/21 Globulin 5.0 gm/dl (2.5-4.0) H 08/06/21 Albumin/Globulin Ratio 0.5 (0.9-2) L 08/06/21 Calcium Level 9.0 mg/dl (8.5-10.1) 08/06/21 05:24 08/06/21 Microbiology 08/04/21 12:05 Gram Stain - Final Cerebral Spinal Fluid CSF Culture - Final No growth 08/04/21 09:54 Aerobic Blood Culture - Preliminary Blood No growth in Aerobic bottle after 48 hours. Anaerobic Blood Culture - Preliminary No growth in Anaerobic bottle after 48 hours. 08/04/21 09:54 Aerobic Blood Culture - Preliminary Blood No growth in Aerobic bottle after 48 hours. Anaerobic Blood Culture - Preliminary No growth in Anaerobic bottle after 48 hours. 08/04/21 12:15 Urine Culture - Final Urine,Straight Cath Escherichia coli 08/05/21 07:39 Gram Stain - Final Ear,Left Aerobic and Anaerobic Culture - Preliminary Pin-point growth present, reincubating. 08/04/21 12:05 Acid Fast Bacilli Smear - Final Cerebral Spinal Fluid I & O Totals 24 Hours 08/05/21 08/06/21 08/07/21 06:59 06:59 06:59 Intake Total 6983.226 / 6983.226 2728.240 / 2728.240 786.995 / 786.995 Output Total 4650 / 4650 5750 / 5750 650 / 650 Balance 2333.226 / 2333.226 -3021.760 / -3021.760 136.995 / 136.995 Cumulative 08/04/21 04:23 thru 08/06/21 12:00 Intake Total 45256.461 Output Total 77479 Balance 548.461 RT Ventilator Mngmt (Last Documented) Ventilator Ordered Settings Respiratory Rate 23 08/06/21 11:00 Fraction of Inspired Oxygen 21 08/04/21 15:15 Ventilator - PT Measurements Respiratory Rate 23 Coding Level of Care Code Critical Care 1st 30-74 mins Diagnoses Acute respiratory distress R06.03 Intellectual disability F79 Meningitis G03.9 Headache R51.9 Lyme disease A69.20 Acute effusion of both middle ears H65.193 Time Spent (min) 35
--- NOTE | 2021-08-06 16:02 | Pharmacy Report ---
Pharmacy Vanc AUC Short Note - Date of Service August 06, 2021 - Assessment & Plan Assessment 36 year old M receiving Vancomycin for treatment of meningitis. Day # 3 of antimicrobial therapy. Plan Vancomycin * AUC/RIKKI is the preferred PK/PD target for vancomycin * AUC guided dosing is effective and associated with decreased risk of nephrotoxicity compared to traditional trough targets * Trough level of 16.4 mcg/mL is predicted to be above recommended AUC threshold * Change to 1750 mg IV every 8 hours * Trough or random level ordered for: 08/07/21 @ 2029 Pharmacy will continue to follow and will adjust dose/frequency as necessary. Thank you.
--- NOTE | 2021-08-06 18:12 | Hospitalist Progress Note ---
Date of Service August 06, 2021 delayed entry date of service noted above Assessment & Plan (1) Meningitis: Plan: Severe Sepsis with Encephalopathy secondary to Acute Bacterial Meningitis, Strep pneumoniae Otitis Media Urinary Tract Infection - s/p Myringotomy - fever improving WBC improving - B.C. negative Urine culture: E coli Ear effusion Culture pending - continue Vanco + Ceftri + Solumedrol IV - ID consulted - on precedex continue ICU monitoring (2) Acute respiratory distress: Plan: - off Bipap (3) Lyme disease: Plan: - Positive IgM on titre, negative IgM - follow Lyme western blot (4) Headache: Plan: - As above. (5) Acute effusion of both middle ears: Plan: per #1 (6) Intellectual disability: Plan: - Chronic. DVT ppx: teds, heparin subq Dispo: From home (7) Sepsis: Admission and Anticipated Discharge Date Admission Date: August 04, 2021 Subjective ff up for acute bacterial meningitis, encephalopathy, etc seen resting in bed, drowsy occasionally wakes up, moves around in bed, answers yes/no but mostly confused per RN Vickie, patient very combative, restless , cursing earlier Precedex ordered no signs of distress, pain no other issues per communications programmer of Systems Review of Systems: all noted and negative except for above Physical Exam Physical Exam: General- oriented x 0, not in distress, breathing with no effort or accessory muscle use Eyes- anicteric Neck- no JVD Lungs- clear breath sounds bilaterally, no rales/wheezes Heart- normal rate, regular rhythm; no murmurs Abdomen- normal bowel sounds, nondistended, soft, nontender Extremities- no pretibial edema, no calf tenderness Neuro- drowsy,not oriented; moves all extremities equally, no gross focal neurologic deficits Skin- warm & dry Results & Data Results & Data ([facility]) Vital Signs (Past 12 Hours) Vital Signs Temp Pulse Resp BP Pulse Ox 08/06/21 11:00 41 L 23 107/57 L 96 08/06/21 10:02 37.4 C 08/06/21 10:00 50 L 23 101/84 94 08/06/21 09:00 74 26 H 111/38 L 95 08/06/21 08:00 69 13 115/73 95 08/06/21 07:48 38.9 C H 08/06/21 07:00 54 L 18 115/73 95 all noted and reviewed including below
[2021-08-06] MEDS: OLANZapine 10 MG/2.1 ML SDV IM SCH (20:53)
[2021-08-06] MEDS: VANCOMYCIN HCL 1,750 MG in SODIUM CHLORIDE 0.9% 500 ML IV SCH (20:54)
[2021-08-07] MEDS: DEXMEDETOMIDINE HCL 400 MCG in 0.9 % SODIUM CHLORIDE 96 ML IV SCH ×8 (03:19→23:50)
[2021-08-07] MEDS: dexAMETHasone 10 MG in SYRINGE 0 ML IV SCH ×4 (03:19→21:20)
[2021-08-07] MEDS: VANCOMYCIN HCL 1,750 MG in SODIUM CHLORIDE 0.9% 500 ML IV SCH ×3 (04:26→21:20)
[2021-08-07 05:13] LABS: Hematocrit (blood only) 38.4 % (42-52); Hemoglobin 13.5 g/dL (14.0-18.0); Mean Corpuscular Hemoglobin 28.7 pg (25-34); Mean Corpuscular Hgb Conc 35.2 g/dL (32-36); Mean Corpuscular Volume 81.5 fL (80-100); Mean Platelet Volume 8.8 fL (7.4-10.4); Platelet Count 185 K/uL (130-400); RDW Coefficient of Variation 14.1 % (11.5-14.5); RDW Standard Deviation 42.4 fL (36.4-46.3); Red Blood Count 4.71 M/uL (4.7-6.1); White Blood Count 14.47 K/uL (4.8-10.8)
[2021-08-07 05:47] LABS: Albumin Globulin Ratio 0.5 (0.9-2); Albumin Level 2.5 gm/dl (3.4-5.0); BUN Creatinine Ratio 26.8 (10-20); Bilirubin,Total 0.5 mg/dl (0.2-1); Creatinine Clr Calc Pharmacy 124.1 ml/min; Est GFR (African American) 111.2 ml/min; Est GFR (Non-African American) 95.9 ml/min; Globulin 5.2 gm/dl (2.5-4.0); Potassium 3.8 mmol/L (3.5-5.1); Total Protein 7.7 gm/dl (6.4-8.2)
[2021-08-07] MEDS: cefTRIAXone SODIUM 2,000 MG in DEXTROSE 5% 50 ML IV SCH ×2 (07:57→21:15)
[2021-08-07] MEDS: OLANZapine 10 MG/2.1 ML SDV IM SCH ×2 (07:57→21:20)
--- NOTE | 2021-08-07 11:27 | Critical Care Progress Note ---
Date of Service August 07, 2021 Assessment & Plan (1) Acute respiratory distress: Plan: Reason Critically Ill: This is a 36-year-old gentleman with a history of intellectual disability as well as previous meningitis, treated at [facility], who presented to [facility] with his mother for altered mental status and head pain, found to have laboratories and imaging concerning for S. pneumoniae meningitis. 24-hour events: Patient was placed on scheduled doses of IM Zyprexa and placed back on Precedex. This has enabled the patient's delirium to be adequately controlled currently. He is hemodynamically stable with improvement in his fever curve and white blood cell count. Recommendations: Neuro -agitated delirium secondary to meningitis and likely substance abuse. Continue supportive care. He is currently being maintained on Precedex and scheduled Zyprexa to prevent additional episodes of agitation. Continue to monitor for withdrawal symptoms on Precedex. If the patient remains stable, can work on weaning off of the Precedex. We will continue to monitor for withdrawal of heroin. Cardiac -patient initially presented with findings concerning for sepsis likely secondary to meningitis. His tachycardia has resolved and now he is intermittently bradycardic. Appears euvolemic. Continue gentle hydration. Respiratory -patient initially required BiPAP. He was tachypneic likely compensating for underlying metabolic acidosis and potential central hyperpnea.. Currently appears resolved. Continue to follow at this point time. Chest x- ray does not demonstrate any significant pneumonia currently. GI -mental status precludes feeding. I do not think the patient would tolerate enteric access currently. Continue to follow with supportive care RENAL/LYTES -renal functions currently normal. Patient had respiratory alkalosis likely driven by his acute infectious process and potential pain and agitation. Follow urine output and electrolytes as needed - Berman catheter. Monitor I&Os. Keep in place until mental status allows for removal ENDO - * No known history of endocrinologic diseases. ICU hyperglycemia protocol. HEME - H&H stable. Monitor. ID -CSF shows no growth on the Gram stain. [employer] was positive for PCR pneumococcus. Urine culture growing E. coli which is pansensitive. ID consultation from [employer] has been requested but it does not appear that it has been scanned into his electronic medical record currently. The patient had bilateral otitis and is status post bilateral myringotomies by otolaryngology and is currently on ofloxacin drops. Continue high-dose Rocephin and vancomycin as well as dexamethasone, currently awaiting ID report. Fever curve and le ukocytosis are improving. We will need to get IDs opinion on duration of antibiotics as well as steroids, would favor 4 days of dexamethasone. INTEGUMENTARY - No acute needs at this time. LINES/IV ACCESS - PIVs intact. DVT PROPHYLAXIS - Heparin SQ Patient remains critically ill. He will remain in the ICU until he can be weaned off of Precedex. He was discussed with the bedside critical care nurse. Total of 36 minutes critical care time was spent evaluation management stabilization of this patient. No family immediately available (2) Intellectual disability: (3) Meningitis: (4) Headache: (5) Lyme disease: (6) Acute effusion of both middle ears: Admission and Anticipated Discharge Date Admission Date: August 04, 2021 Subjective Patient seen and examined. EMR reviewed. Discussed with critical care QUANG from overnight. No acute issues. He is done well with intermittent IM dosing of Zyprexa as well as his Precedex infusion. White count and fever curve are improving. Review of Systems Review of Systems: Unobtainable due to reduced consciousness Physical Exam Constitutional: Somnolent. Becomes agitated with tactile stimulus. Neck: trachea midline, no thyromegaly Respiratory: normal respiratory effort, lungs clear to auscultation Cardiovascular: RRR, no murmur, no edema Gastrointestinal (Abdomen): normal bowel sounds, soft, nontender, no hepatosplenomegaly Musculoskeletal: Extremities: extremities normal to inspection Skin: no rashes, warm and dry Lymphatic: no cervical lymphadenopathy Results & Data Results & Data ([facility]) Vital Signs (Past 12 Hours) Vital Signs Temp Pulse Resp BP Pulse Ox 08/07/21 09:00 37.6 C H 08/07/21 06:00 43 L 21 166/82 H 94 08/07/21 05:00 55 L 20 96 08/07/21 04:00 43 L 20 108/58 L 94 08/07/21 03:00 48 L 28 H 90 08/07/21 02:00 45 L 23 95 08/07/21 01:00 43 L 23 115/74 95 08/07/21 00:00 76 19 93 Critical Care Results & Data Vital Signs (Past 12 Hours) Vital Signs Temp Pulse Resp BP Pulse Ox 08/07/21 09:00 37.6 C H 08/07/21 06:00 43 L 21 166/82 H 94 08/07/21 05:00 55 L 20 96 08/07/21 04:00 43 L 20 108/58 L 94 08/07/21 03:00 48 L 28 H 90 08/07/21 02:00 45 L 23 95 08/07/21 01:00 43 L 23 115/74 95 08/07/21 00:00 76 19 93 Lab & Micro Results (Past 24 Hours) RBC 4.71 M/uL (4.7-6.1) 08/07/21 WBC 14.47 K/uL (4.8-10.8) H 08/07/21 Hgb 13.5 g/dL (14.0-18.0) L 08/07/21 Hct 38.4 % (42-52) L 08/07/21 MCV 81.5 fL (80-100) 08/07/21 MCH 28.7 pg (25-34) 08/07/21 MCHC 35.2 g/dL (32-36) 08/07/21 RDW Standard Deviation 42.4 fL (36.4-46.3) 08/07/21 RDW Coefficient of Variation 14.1 % (11.5-14.5) 08/07/21 Plt Count 185 K/uL (130-400) 08/07/21 MPV 8.8 fL (7.4-10.4) 08/07/21 Na 146 mmol/L (136-145) H 08/07/21 K 3.8 mmol/L (3.5-5.1) 08/07/21 Cl 118 mmol/L (98-107) H 08/07/21 CO2 25 mmol/L (21-32) 08/07/21 Anion Gap 3.0 (3-11) 08/07/21 BUN 27 mg/dl (7-18) H 08/07/21 Creatinine 1.01 mg/dl (0.6-1.4) 08/07/21 Estimated GFR ( Amer) 111.2 ml/min 08/07/21 Estimated GFR (Non-Af Amer) 95.9 ml/min 08/07/21 BUN/Creatinine Ratio 26.8 (10-20) H 08/07/21 Glu 160 mg/dl (70-99) H 08/07/21 Ca 9.0 mg/dl (8.5-10.1) 08/07/21 Total Bilirubin 0.5 mg/dl (0.2-1) 08/07/21 AST 15 U/L (15-37) 08/07/21 ALT 18 U/L (12-78) 08/07/21 Alkaline Phosphatase 50 U/L (45-117) 08/07/21 TP 7.7 gm/dl (6.4-8.2) 08/07/21 Albumin 2.5 gm/dl (3.4-5.0) L 08/07/21 Globulin 5.2 gm/dl (2.5-4.0) H 08/07/21 Albumin/Globulin Ratio 0.5 (0.9-2) L 08/07/21 Calcium Level 9.0 mg/dl (8.5-10.1) 08/07/21 04:57 08/07/21 Microbiology 08/04/21 12:05 Gram Stain - Final Cerebral Spinal Fluid CSF Culture - Final No growth 08/04/21 09:54 Aerobic Blood Culture - Preliminary Blood No growth in Aerobic bottle after 48 hours. Anaerobic Blood Culture - Preliminary No growth in Anaerobic bottle after 48 hours. 08/04/21 09:54 Aerobic Blood Culture - Preliminary Blood No growth in Aerobic bottle after 48 hours. Anaerobic Blood Culture - Preliminary No growth in Anaerobic bottle after 48 hours. 08/04/21 12:15 Urine Culture - Final Urine,Straight Cath Escherichia coli 08/05/21 07:39 Gram Stain - Final Ear,Left Aerobic and Anaerobic Culture - Preliminary Pin-point growth present, reincubating. I & O Totals 24 Hours 08/06/21 08/07/21 08/08/21 06:59 06:59 06:59 Intake Total 2728.240 / 2728.240 2212.255 / 2212.255 705.000 / 705.000 Output Total 5750 / 5750 2550 / 2550 1000 / 1000 Balance -3021.760 / -3021.760 -337.745 / -337.745 -295.000 / -295.000 Cumulative 08/04/21 04:23 thru 08/07/21 09:56 Intake Total 34107.721 Output Total 88072 Balance -221.279 RT Ventilator Mngmt (Last Documented) Ventilator Ordered Settings Respiratory Rate 21 08/07/21 06:00 Fraction of Inspired Oxygen 21 08/04/21 15:15 Ventilator - PT Measurements Respiratory Rate 21 Coding Level of Care Code Critical Care 1st 30-74 mins Diagnoses Acute respiratory distress R06.03 Intellectual disability F79 Meningitis G03.9 Headache R51.9 Lyme disease A69.20 Acute effusion of both middle ears H65.193 Time Spent (min) 36
[2021-08-07] MEDS: MoRPHine SULFATE 2 MG/ML CARP IV PRN (12:34)
--- NOTE | 2021-08-07 16:56 | Hospitalist Progress Note ---
Date of Service August 07, 2021 Assessment & Plan (1) Meningitis: Plan: Severe Sepsis with Encephalopathy secondary to Acute Bacterial Meningitis, Strep pneumoniae Otitis Media Urinary Tract Infection - s/p Myringotomy - fever improving WBC improving mental status seems to be improving - CSF studies: bacterial meningitis, Strep pneumo detected - B.C. negative Urine culture: E coli Ear effusion Culture pending CSF culture negative - continue Vanco + Ceftri + Decadron IV - ID consulted ENT on board as well - on precedex continue ICU monitoring (2) Acute respiratory distress: Plan: - off Bipap (3) Lyme disease: Plan: - Positive IgM on titre, negative IgM - follow Lyme western blot (4) Headache: Plan: - As above. (5) Acute effusion of both middle ears: Plan: per #1 (6) Intellectual disability: Plan: - questionable DVT ppx: teds, heparin subq Dispo: From home (7) Sepsis: Admission and Anticipated Discharge Date Admission Date: August 04, 2021 Subjective ff up for acute bacterial meningitis, encephalopathy, etc per RN, patient less combative, aggressive, restless today waking up intermittently, spoke with his mother, making more meaningful responses seen sleeping, woke up with verbal command can state name and his mother's name, where they live states he feels fine no pain, dyspnea full ROS difficult to perform due to cognitive status no other issues per RN Physical Exam Physical Exam: General- oriented x 2, not in distress, speaks in sentences wit h no effort or accessory muscle use Ears- no active drainage Eyes- anicteric Neck- no JVD Lungs- clear breath sounds bilaterally, no rales/wheezes Heart- normal rate, regular rhythm; no murmurs Abdomen- normal bowel sounds, nondistended, soft, nontender Extremities- no pretibial edema, no calf tenderness Neuro- drowsy, oriented x 2; no new gross focal neurologic deficits Skin- warm & dry Results & Data Results & Data ([facility]) Vital Signs (Past 12 Hours) Vital Signs Temp Pulse Resp BP Pulse Ox 08/07/21 16:10 36.5 C 08/07/21 14:00 55 L 21 151/84 H 94 08/07/21 13:00 57 L 21 08/07/21 12:00 87 24 158/70 H 93 08/07/21 11:00 49 L 20 94 08/07/21 10:00 51 L 20 170/73 H 96 08/07/21 09:00 37.6 C H 41 L 24 95 08/07/21 08:00 42 L 26 H 189/88 H 95 08/07/21 07:00 42 L 23 94 08/07/21 06:00 43 L 21 166/82 H 94 08/07/21 05:00 55 L 20 96 all noted and reviewed including below
[2021-08-07] MEDS ORDERED: VANCOMYCIN TROUGH ONE (20:30)
--- NOTE | 2021-08-07 21:33 | Pharmacy Report ---
Pharmacy Vanc AUC Short Note - Date of Service August 07, 2021 - Assessment & Plan Assessment 36 year old M receiving Vancomycin for treatment of S. pneumoniae meningitis. * Day #4 of antimicrobial therapy * Remains febrile and with a leukocytosis * Renal fxn stable Plan Vancomycin * AUC/RIKKI is the preferred PK/PD target for vancomycin * AUC guided dosing is effective and associated with decreased risk of nephrotoxicity compared to traditional trough targets * AUC/RIKKI goal of 400-600 * Trough level today was 17.9 mcg/mL which correlates to an AUC/RIKKI between 400- 600 * Continue 1750 mg IV every 8 hours * No further troughs necessary unless renal function changes Pharmacy will continue to follow and will adjust dose/frequency as necessary. Thank you.
[2021-08-08] MEDS: DEXMEDETOMIDINE HCL 400 MCG in 0.9 % SODIUM CHLORIDE 96 ML IV SCH ×4 (00:11→08:00)
[2021-08-08] MEDS: dexAMETHasone 10 MG in SYRINGE 0 ML IV SCH (03:58)
[2021-08-08 04:56] LABS: Lyme DNA PCR CSF or Synovial Not detected (Not Detected); Lyme DNA Source CSF
[2021-08-08 05:11] LABS: Basophils # (auto) 0.01 K/uL (0-0.2); Basophils % (auto) 0.1 %; Hematocrit (blood only) 38.1 % (42-52); Hemoglobin 13.4 g/dL (14.0-18.0); Immature Granulocytes # (auto) 0.11 K/uL (0.00-0.02); Immature Granulocytes % (auto) 1.3 %; Lymphocytes % (auto) 18.9 %; Mean Corpuscular Hemoglobin 28.5 pg (25-34); Mean Corpuscular Hgb Conc 35.2 g/dL (32-36); Mean Corpuscular Volume 80.9 fL (80-100); Monocytes # (auto) 0.38 K/uL (0.11-0.59); Monocytes % (auto) 4.5 %; Neutrophils # (auto) 6.35 K/uL (1.4-6.5); Neutrophils % (auto) 75.2 %; Platelet Count 209 K/uL (130-400); RDW Standard Deviation 41.9 fL (36.4-46.3); Red Blood Count 4.71 M/uL (4.7-6.1); White Blood Count 8.45 K/uL (4.8-10.8)
[2021-08-08 05:39] LABS: BUN Creatinine Ratio 26.6 (10-20); Calcium 8.3 mg/dl (8.5-10.1); Creatinine Clr Calc Pharmacy 132.3 ml/min; Est GFR (African American) 119.7 ml/min; Est GFR (Non-African American) 103.3 ml/min; Magnesium 2.7 mg/dl (1.8-2.4); Potassium 3.7 mmol/L (3.5-5.1)
[2021-08-08 05:40] LABS: Phosphorus 3.6 mg/dl (2.5-4.9)
[2021-08-08] MEDS: cefTRIAXone SODIUM 2,000 MG in DEXTROSE 5% 50 ML IV SCH (06:07)
[2021-08-08] MEDS: VANCOMYCIN HCL 1,750 MG in SODIUM CHLORIDE 0.9% 500 ML IV SCH (06:07)
--- NOTE | 2021-08-08 06:18 | Critical Care Progress Note ---
Date of Service August 08, 2021 Assessment & Plan (1) Acute respiratory distress: Plan: Reason Critically Ill: This is a 36-year-old gentleman with a history of OUD as well as previous meningitis, treated at [facility], who presented to [facility] with his mother for altered mental status and head pain, found to have laboratories and imaging concerning for S. pneumoniae meningitis. He also likely has a superimposed opioid withdrawal process at play contributing to agitated delirium. Neuro - CAM ICU: POSITIVE Sedation: None Analgesia: Tylenol 1000mg IV q8h p.r.n. Encephalopathy with Agitated Delirium * Secondary to acute bacterial meningitis + sepsis, alongside likely opioid withdrawal (substance abuse) * Patient with 1-2ppd smoking history - will add nicotine patch qAM (7) * Attempt to ween Precedex today * Continue Zyprexa 10mg b.i.d. for now -- transition to PO * Continue one-to-one sitter Opioid Abuse -- with family reporting history of heroin use * Likely contributory to overall encephalopathy and delirium * Monitor for withdrawal symptoms on Precedex Cardiac - Bradycardia - previously tachycardic, now demonstrating marked sinus bradycardia with rates between 30 - 40. Thankfully, no signs of hemodynamic instability. Good capillary refill on exam. Lytes stable. Suspect this is secondary to his Precedex. EKG without conduction abnormalities. Continue to monitor while weening Precedex. Respiratory - Prior Tachypnea / Respiratory Distress -- resolved * Early during presentation, developed tachypnea (up to rates of 45) without hypoxia. Put on BiPAP. Likely compensatory from central hypopnea * CXR not revealing for any acute processes / PNA * Resolved. Stable on RA. Monitor. Bilateral Mastoid and Middle Ear Effusions -- s/p b/l myringotomy 08/05 * Initially appreciated on CT-H. Dedicated CT-IAC revealing of complete opacification of middle ears. * ENT consulted - appreciate insight and recommendations - L AOM and R OME may be source of meningitis - No evidence of mastoiditis. Evidence of tegmoid dishesence (L>R). - s/p bilateral myringotomy on 08/05 - Continue ofloxacin drops - Will require MRI once stabilized GI - Continue NPO. Patient would likely be poor candidate for NGT/OGT at this time given delirium. Will ween Precedex, as above - once mentation allows, trial feeding. Appreciate nutrition aid. COACH BUILDER consult when appropriate. RENAL/LYTES - Stable, no acute needs. Monitor lytes, I&Os. - Berman catheter. Monitor I&Os. ENDO - No known history of endocrinologic diseases. ICU hyperglycemia protocol. HEME - H&H stable. Monitor. ID - Bacterial Meningitis -- PCR positive for Strep. pneumo. * Patient with known history of bacterial meningitis in the past. Unfortunately, details about this are unavailable. * Suspect secondary to AOE/OME, as above * Work-up revealing of the following: - Symptomatically was reporting MENENDEZ and mother said he was not acting himself. - Leukocytosis initially to 27 with left shift. Also +Lactate. Temperatures previously up to 39.7 - Initial Head CT revealing of large bilateral mastoid and middle ear effusions, CT-AIC as abovre - LP revealing of significant leukocytosis (8500) with 99% PMNs, undetectably low glucose - BCX, UCX, CSF CX pending - CSF Pathogen Panel: Positive for Streptococcus pneumoniae . Negative otherwise, including cryptococcus. * ID consulted -- appreciate insight and recommendations -- awaiting report, consult completed on 08/05 - Appreciate insight on duration of antibiotics, steroids * Will continue CFTX q12, vancomycin q12 * For now, continue dexamethasone 10mg IV q6h * ENT consulted, as above - s/p myringotomy * Consider neurology consultation if clinical picture is deteriorating / to aid in need for serial lumbar punctures / need for drain - appreciate insight and recommendations -- [facility] ID report received, reviewed. Recommending 10-14 days of parental CFTX + vancomycin, and dexamethasone for 4 days (initiated 08/05). Consider immunodeficiency work-up -- Should patient become agitated, but demonstrate capacity to leave AMA, do not think he would be a safe candidate for parental IV ABX. Can consider PO levofloxacin and Omnicef x 10 days for synergistic coverage. Sepsis * Secondary to S. pneumoniae meningitis. Fluid status adequate. UOP adequate. Maintain MAP > 65, BSG 150-180. Other therapies as above INTEGUMENTARY - No acute needs at this time. LINES/IV ACCESS - PIVs intact. DVT PROPHYLAXIS - Heparin SQ Thank you for allowing us to be part of this patient's care. Please refer to Dr. Baxter's documentation for any further recommendations. (2) Intellectual disability: (3) Meningitis: (4) Headache: (5) Lyme disease: (6) Acute effusion of both middle ears: Admission and Anticipated Discharge Date Admission Date: August 04, 2021 Supervising Physician Co-Signing Physician Notes Dr. Barber was resident physician during care of patient. I separately evaluated patient for espitia portions of the history and the exam. I was present during the critical portion of medical decision making, and I discussed the case with the resident. I generally agree with the findings and plan. Patient's mother admitted to nursing staff that she was embarrassed to state patient had a history of substance abuse i.e. heroin and informed staff that he had an intellectual disability which is not the case. I will remove this from the problem list. Patient now off Precedex if he is alert and oriented and able to consent for himself and has capacity he will be allowed to leave AGAINST MEDICAL ADVICE we will attempt to redirect the patient but he is rather confr ontational. Patient was on phone with mother shouting obscenities into the phone. There appears to be significant social dynamic issues as she mother is not going to pick patient up from hospital. Patient now afebrile could convert to oral antibiotics he has an E. coli urinary tract infection and strep pneumo via bio fire. We will continue ceftriaxone and vancomycin per IDs recommendation however if he leaves AGAINST MEDICAL ADVICE I feel that continuous IV antibiotics is ill advised and given the bio fire being positive for strep pneumo and the E. coli we could switch him to Omnicef and Levaquin for strep pneumo synergism and E. coli coverage. This would be for 10- day duration and encourage close follow-up with the primary care doctor. Patient stable for downgrade out of ICU. Subjective No acute events overnight. Patient continues to be bradycardic with rates between the 30-40 range. Nursing and one-to-one intermittently reporting agitation, such as with blood draw. Patient becomes verbally aggressive. While he is able to answer basic questions now, he is unable to provide significant and meaningful history. He denies any pain or shortness of breath. He does report "wanting my pack of cigarettes", on further questioning he does report smoking approximately 1 to 2 packs/day. Review of Systems Review of Systems: Unobtainable due to cognitive status Physical Exam Physical Exam: General: Tired appearing 36-year-old gentleman who is lying back in his hospital bed, somnolent appearing, who becomes intermittently restless with questioning. He was responsive to voice. HEENT: NCAT. Eyes - Sclera are white, anicteric, and without injection. PERRL. Mouth - MMM with no tonsillar edema or exudates. Cardiac: Bradycardic with regular rhythm; S1 and S2 present with no murmurs, rubs, or gallops. Pulmonary: Good respiratory effort with symmetric expansion of the chest. Tachypneic. No use of accessory muscles. Lungs were clear to auscultation bilaterally with no crackles or wheezes. Abdominal: Normoactive bowel sounds. Abdomen was soft, nondistended, and non- tender to palpation. Extremities: Upper and lower extremities are warm and well perfused. Radial and dorsalis pedis pulses were 2+ b/l. Capillary refill assessed in UE was < 3 sec. Neuro: Patient still resistant to exam. - Cranial Nerves: CN I, IX, and X - not assessed. II - PERRL. III - Corneal reflex in-tact. XII - no tongue deviation - Motor: Normal tone, without spasticity, in the upper and lower extremities. Wood Grinder Operator strength strong and 5 out of 5 bilaterally. Ankle plantarflexion with resistance 5 out of 5. - Sensation: Unable to reliably assess, although patient does report feeling equal in upper and lower extremities bilaterally with light touch. - Reflexes - Biceps and patellar reflexes 2+. No clonus. Results & Data Results & Data ([facility]) Vital Signs (Past 12 Hours) Vital Signs Pulse Resp BP 08/08/21 05:00 33 L 12 166/82 H 08/08/21 04:00 35 L 18 159/80 H 08/08/21 03:00 34 L 22 144/80 H 08/08/21 02:00 35 L 17 155/90 H 08/08/21 01:00 35 L 24 139/87 08/08/21 00:00 36 L 19 137/96 08/07/21 23:00 36 L 21 135/90 08/07/21 22:00 42 L 7 L 128/92 08/07/21 21:00 43 L 18 131/72 08/07/21 20:00 37 L 18 08/07/21 19:00 37 L 20 131/75 Resident Activity Tracking Resident Involvement: Resident Care Provided Care Provided: Adult Hospital Medicine
[2021-08-08] MEDS ORDERED: NICOTINE 7 MG/24 HR TDSY TD SCH (09:00)
[2021-08-08] MEDS: OLANZapine 10 MG/2.1 ML SDV IM SCH (09:27)
--- NOTE | 2021-08-08 10:00 | Billing Data ---
Date of Service August 08, 2021 Coding Level of Care Code 70599 Subseq Hosp Care Lvl 3
--- NOTE | 2021-08-08 14:31 | Hospitalist Progress Note ---
Date of Service August 08, 2021 delayed entry date of service noted above Assessment & Plan (1) Meningitis: Plan: Severe Sepsis with Encephalopathy secondary to Acute Bacterial Meningitis, Strep pneumoniae Bilateral Otitis Media Urinary Tract Infection E coli - s/p Myringotomy - fever improving WBC improving mental status improved, oriented x 3 - CSF studies: bacterial meningitis, Strep pneumo detected by PCR - B.C. negative Urine culture: E coli Ear effusion Culture negative CSF culture negative - given Vanco + Ceftri + Decadron IV per [facility] ID recommendations written prescription for Omnicef + Levaquin - patient had to receive several days Precedex, Zyprexa and Ativan due to agitation and combativeness mental status gradually improved, subsequently became oriented x 3 - ID consulted- recommend possible Immunodeficieny studies ENT on board as well- will need ff up with ENT - on precedex continue ICU monitoring (2) Acute respiratory distress: Plan: - off Bipap (3) Lyme disease: Plan: - Positive IgM on titre, negative IgM - follow Lyme western blot (4) Headache: Plan: - As above. (5) Acute effusion of both middle ears: Plan: per #1 (6) Intellectual disability: Plan: - patient's mother called in and stated patient has no intellectual disability - reports she read on patient's cellphone regarding "heroin" DVT ppx: teds, heparin subq Dispo:left AMA (7) Sepsis: Admission and Anticipated Discharge Date Admission Date: August 04, 2021 Subjective ff up for meningitis, encephalopathy, etc called by RN as patient requesting to leave AMA seen at bedside with RN at bedside throughout whole encounter patient sitting up in bed, comfortable, not in distress oriented x 3 denies headache, chest pain, dyspnea, dizziness able to verbalize medical condition very aggressive, mad, yelling when answering questions cursing in every sentence, always says F-k states he does not want to be in the hospital anymore when inquired why, patient got more and more upset, does not want to elaborate "you're f--ing annoying me with your questions" encouraged him to stay due to possible consequences I explained possible consequences of leaving AMA including worsening of sepsis, meningitis, ear infection, organ damage, paralysis, , etc. patient was able to verbalize consequences as above declined to converse with me any longer , became more aggressive and upset, yelling tried to ask his pharmacy but patient said "write the f--ng prescription now or Im leaving" encouraged to ff up with PCP in 1 week Review of Systems Review of Systems: all noted and negative except for above Physical Exam Physical Exam: patient declined Results & Data Results & [facility] ([facility]) Vital Signs (Past 12 Hours) Vital Signs Temp Pulse Pulse Resp BP BP Pulse Ox 08/08/21 12:14 36.5 C 103 H 12 167/94 H 96 08/08/21 05:00 33 L 12 166/82 H 08/08/21 04:00 35 L 18 159/80 H 08/08/21 03:00 34 L 22 144/80 H all noted and reviewed including below
--- NOTE | 2021-08-08 16:11 | Electrocardiogram Report ---
Test Reason : Blood Pressure : / mmHG Vent. Rate : 037 BPM Atrial Rate : 037 BPM P-R Int : 152 ms QRS Dur : 106 ms QT Int : 548 ms P-R-T Axes : 048 -30 -36 degrees QTc Int : 430 ms Marked sinus bradycardia Left axis deviation Minimal voltage criteria for LVH, may be normal variant Abnormal ECG When compared with ECG of 05-AUG-2021 11:05, Vent. rate has decreased BY [address] now depressed in Inferior leads T wave inversion now evident in Inferior leads Confirmed by Watson Johnson [id number] on 08/08/2021 4:11:17 PM Referred By: REFERRED SELF Confirmed By:Watson Johnson
[2021-08-09 00:06] LABS: 18KDIGG Band REACTIVE; 23KDIGG Band NON-REACTIVE; 23KDIGM Band NON-REACTIVE; 28KDIGG Band NON-REACTIVE; 30KDIGG Band NON-REACTIVE; 39KDIGG Band REACTIVE; 39KDIGM Band NON-REACTIVE; 41KDIGG Band REACTIVE; 41KDIGM Band NON-REACTIVE; 45KDIGG Band NON-REACTIVE; 58KDIGG Band REACTIVE; 66KDIGG Band NON-REACTIVE; 93KDIGG Band REACTIVE; Lyme Antibodies, WB IgG POSITIVE (NEGATIVE); Lyme Antibodies, WB IgM NEGATIVE (NEGATIVE)
--- NOTE | 2021-08-10 17:17 | Discharge Summary ---
Date of Service August 09, 2021 delayed entry date of service noted above Admission HPI Per Admitting Provider Chief Complaint: Head pain Primary Care Provider: NO PCP This is a 36 yo M with PMHx of intellectual disability and hx of meningitis about 1 year ago, who presents to the hospital with his mother who is no longer at bedside, with complaints of head pain. Pt is unable to provide history based on lethargy and tachypnea. He is diaphoretic, RR of 45 at bedside, sats are in low 90s. BP elevated at 160s/80s. He cannot provide any history or ROS. Lyme titre is noted to be positive on admission. WBC is elevated at 16 K, with a left shift, febrile at 39.5 since being here, but was not febrile at home per report from ER. Started on rocephin initially overnight for Lymes and blood culture were drawn after antibiotic given. CT of the head shows large bilateral mastoid effusions and middle ear effusion--with presentation it is concerning for meningitis. Unknown if viral versus bacterial at this time. Right lung treviño with coarse rales throughout concerning for pneumonia. Will obtain LP with sedation due to intellectual disability. Attempted to speak with mother via phone, did not answer on 3 different phone call attempts, and there is not a voice mail set up to leave a message. Admission Exam (Per Admitting) Constitutional General: lethargic, arouses slightly with loud speech and sternal rub, diaphoretic, mild distress, obese with BMI 33.8 Head: Normocephalic, atraumatic ENT: PERRL, EOMI, no pharyngeal exudate, mucous membranes moist Chest: Tachypneic with RR 45 with O2 sats 94% at bedside, on room air, coarse rales on R lung treviño, left is essentially clear. Cardiac: +tachycardic with HR 95, no murmur, no JVD, normal peripheral pulses, good capillary refill Abdominal: NABS x 4 quadrants, soft, nondistended, nontender to palpation, no rebound or guarding Extremities: Normal inspection, no peripheral edema or erythema, calfs nontender to palpation Psych: Unable to assess due to lethargy Neuro: Lethargic, not alert or awake, arouses slightly with loud speech and sternal rub Discharge Data Consultations 08/04/21 10:14 ED Decision to Admit Stat 08/04/21 10:48 Consult Clam Bed Laborer Routine 08/04/21 15:23 Consult Infectious Diseases Stat 08/04/21 16:17 Consult Otolaryngology (Head and Neck) Routine Procedures Performed Operation Date: 08/05/21 08:10 Actual Procedures p Bilateral Myringotomy(Bilateral) - Jerson Rodriguez MD CT head/brain wo con CLINICAL HISTORY: 36 years-old Male with Headache. Acute headache TECHNIQUE: Multiple axial CT images of the head were obtained without contrast. A dose lowering technique was utilized adhering to the principles of ALARA. CT DOSE: 729.78 mGycm COMPARISON: None. FINDINGS: No acute intracranial hemorrhage, midline shift, intracranial mass, hydrocephalus, territorial ischemia or abnormal extra-axial collection. The calvarium is intact. Large bilateral mastoid effusions. Fluid is also noted within the middle ear cavities bilaterally. IMPRESSION: 1. No acute intracranial abnormality. 2. Large bilateral mastoid and middle ear effusions. XR chest 1V portable CLINICAL HISTORY: Shortness of breath. COMPARISON STUDY: No previous studies for comparison. FINDINGS: Lung volumes are normal. There is minimal right basilar opacity. There is no pneumothorax or pleural effusion. Cardiac size is normal. Mediastinal contours are normal. There is no evidence for pulmonary edema. IMPRESSION: Minimal right basilar opacity. This favors atelectasis. An infectious process could appear similar. ACT 112: Negative or not required by law. CT IAC BI wo con HISTORY: Strep meningitis - bilateral mastoid effusions TECHNIQUE: Multiaxial CT images of the temporal bones were performed without contrast and reformatted in the sagittal and coronal plane at the workstation by the radiologist. COMPARISON STUDY: Head CT 08/04/2021. FINDINGS: The external auditory canals appear patent. There is complete opacification of the middle ear cavities and mastoid air cells. The ossicles are intact. No erosive changes identified within the right or left scutum. No evidence for inner ear dysplasia. The 7th cranial nerves describe a normal course. Limited evaluation of the tegmen due to the motion artifact. However, there appears to be focal erosion of the left epitympanic roof measuring 3.7 mm. This is best seen on coronal image 53. There is also suggestive of a 3 mm focal erosion within the right epitympanic roof on image 70. However, no fluid collections identified within the brain. Mild hypertrophy of the adenoid tonsils. IMPRESSION: 1. Complete opacification of bilateral middle ear cavities and mastoid air cells. The ossicles appear intact. 2. Limited evaluation of the tegmen due to the motion artifact. There may be small focal erosions within the epitympanic roofs measuring 3.7 L on the left and 3 mm on the right. No definite fluid collections identified within the brain. ACT 112: Negative or not required by law. Hospital Course (1) Meningitis: Severe Sepsis with Encephalopathy secondary to Acute Bacterial Meningitis, Strep pneumoniae Bilateral Otitis Media Urinary Tract Infection E coli - CSF studies: bacterial meningitis, Strep pneumo detected by PCR - B.C. negative Urine culture: E coli Ear effusion Culture negative CSF culture negative - given Vanco + Ceftri + Decadron IV per [facility] ID recommendations - s/p Myringotomy - patient had to receive several days Precedex, Zyprexa and Ativan due to agitation and combativeness mental status gradually improved, subsequently became oriented x 3 - ID consulted- recommend possible Immunodeficieny studies ENT on board as well- will need ff up with ENT - fever improving WBC improving mental status improved, oriented x 3 - patient became very aggressive and confrontational to medical staff left AMA written prescription for Omnicef + Levaquin - on precedex continue ICU monitoring (2) Acute respiratory distress: - off Bipap (3) Lyme disease: - Positive IgM on titre, negative IgM - follow Lyme western blot (4) Headache: - As above. (5) Acute effusion of both middle ears: per #1 (6) Intellectual disability: - patient's mother called in and stated patient has no intellectual disability - reports she read on patient's cellphone regarding "heroin" DVT ppx: teds, heparin subq Dispo:left AMA (7) Sepsis:
== END 2021-08-08 12:15 | disposition left against medical advice (07) | DRG 871 ==
LOC: ED 04:23 → 1E 12:45

== ENCOUNTER 2021-08-08 17:03 | Observation (INO) ==
[2021-08-08] MEDS ORDERED: HALOPERIDOL LACTATE 5 MG/ML 1 ML VIAL IM STA (20:48)
[2021-08-08] MEDS ORDERED: LORazepam 2 MG/ML VIAL (IM USE) IM STA (20:49)
--- NOTE | 2021-08-08 20:52 | Emergency Department Note ---
Impression & Plan Meningitis Admission ED Provider Note HPI: The patient is a 36-year-old male with history of polysubstance abuse, presents the emergency department with agitation in police custody. Patient reportedly signed out from the hospital AGAINST MEDICAL ADVICE recently, he was admitted for meningitis at that time.CSF meningitis panel was positive for strep pneumo. Patient also was noted to have significant white blood cell count on CSF analysis. He was treated with IV antibiotics, placed in the ICU, signed out AGAINST MEDICAL ADVICE this morning after he was determined to have capacity. Patient then earlier this afternoon had the police called on him when he went to his mother's place of employment and was acting erratically and aggressively, reportedly would not leave the property and therefore was arrested for trespassing. When it was discovered that the patient signed out AGAINST MEDICAL ADVICE from the hospital this morning please return him to the emergency department for medical clearance.On arrival here to the ED the patient is cooperative on my initial history, he is afebrile, he is in no acute distress, he is agitated however it appears that this is more directed towards the police than myself or anyone else. He is saturating well on room air on arrival, abdomen is soft and nontender. Patient tells me that he feels generally unwell, weak, states he still has a headache, states he feels he needs to be admitted to the hospital now. ROS: - Neuro: Headache - General: Generalized weakness - MSK: Myalgias *10 point review systems was conducted and is otherwise negative unless stated above *Outpatient medications and allergy history reviewed PE: General: Alert, NAD HEENT: Normocephalic, atraumatic, trachea midline, right tympanic membrane is dull/dark without active drainage, left tympanic membrane is clear appearing without active drainage, Patient has full range of motion of his neck without issue, no meningismus, there is no tenderness over the bilateral mastoids Eyes: Extraocular eye movement is intact, no scleral erythema Pulmonary: Clear to auscultation bilaterally, no wheezing Cardio: Regular rate and rhythm GI: Abdomen is soft, nontender : No suprapubic tenderness MSK: No evidence of trauma or malformation of the extremities, no edema Skin: No evidence of rash Neuro: Alert, no focal deficits Psychiatric: Cooperative, Patient does not appear to be responding to any internal stimuli, he answers my questions appropriately, He is alert and oriented x3 Medical Decision Making: Patient became agitated shortly after my examination and required sedation with Haldol and Ativan, patient remained more calm following this and he is alert on my reassessment. Lab work was ordered for medical clearance, patient has a significant leukocytosis greater than 17,000 which appears new from this morning, he did sign out AGAINST MEDICAL ADVICE this morning, he was admitted and originally for strep pneumo meningitis, thought to be secondary to a right- sided serous otitis media. Patient was to complete a 10 to 14-day course of IV antibiotics for this, he completed only about 4 days. He was discharged on oral antibiotics. Patient is alert and oriented here in the ED, I do believe he has capacity to refuse at this time, patient states however he feels unwell, states he would like to be admitted to continue his IV antibiotic course. Given that he was originally to be receiving IV antibiotics for a course of 10 to 14 days I see that this is appropriate, blood cultures will be drawn in the ED, patient will be restarted on ceftriaxone and vancomycin. I discussed the case with the on- call [facility] hospitalist, Dr. Sotelo, patient was accepted to a monitored bed for further management and continued treatment for strep pneumo meningitis and serous otitis media. Patient was admitted in stable condition. * Diagnosis: Meningitis, R sided DANIEL * Disposition: Admission Jordan Marie DO Emergency Medicine Past Med/Surg History Medical History Intellectual disability Surgical History No significant past surgical history Social History Smoking Status: Current every day smoker Tobacco Type: Cigarettes Preferred Language: Upper Sorbian Communication Ability: Unable Current Living Situation: Family Feels Safe at Home: Yes Allergies Allergies Allergy/AdvReac Type Severity Reaction Status Date / Time No Known Allergies Allergy Verified 08/08/21 23:36 Home Meds Home Medications Medication Instructions Recorded Confirmed No Known Home Medications 08/08/21 08/08/21 Results & Data (ED) Vital Signs Vital Signs - 24 hr 08/08/21 17:31 08/08/21 21:12 Temperature 36.6 C Temperature Source Oral Pulse Rate 60 Pulse Rate [Left Finger] 55 L Respiratory Rate 18 20 Blood Pressure 129/83 Blood Pressure [Left Arm] 121/76 Blood Pressure Mean 98 Blood Pressure Mean [Left Arm] 91 Blood Pressure Position [Left Arm] Sitting Pulse Oximetry 98 99 Oxygen Delivery Method Room Air Room Air Sepsis Recent Fever Within 48 Hours No Sepsis New/Unexplained Change in Mental Status No Sepsis Action Taken by Nursing No Action Required Laboratory Data Result diagrams: 08/08/21 21:07 08/08/21 21:07 Lab Results 08/08/21 08/08/21 08/08/21 Range/Units 21:07 21:07 21:07 WBC 17.20 H (4.8-10.8) K/uL RBC 4.89 (4.7-6.1) M/uL Hgb 13.9 L (14.0-18.0) g/dL Hct 39.1 L (42-52) % MCV 80.0 (80-100) fL MCH 28.4 (25-34) pg MCHC 35.5 (32-36) g/dL RDW Std Deviation 41.5 (36.4-46.3) fL RDW Coeff of Abel 14.2 (11.5-14.5) % Plt Count 266 (130-400) K/uL MPV 9.2 (7.4-10.4) fL Immature Gran % (Auto) 1.2 % Neut % (Auto) 81.1 % Lymph % (Auto) 10.3 % [place] % (Auto) 7.3 % Eos % (Auto) 0.0 % Baso % (Auto) 0.1 % Neut # (Auto) 13.94 H (1.4-6.5) K/uL Lymph # (Auto) 1.77 (1.2-3.4) K/uL [place] # (Auto) 1.26 H (0.11-0.59) K/uL Eos # (Auto) 0.00 (0-0.5) K/uL Baso # (Auto) 0.02 (0-0.2) K/uL Immature Gran # (Auto) 0.21 H (0.00-0.02) K/uL Sodium 144 (136-145) mmol/L Potassium 2.8 L D (3.5-5.1) mmol/L Chloride 114 H (98-107) mmol/L Carbon Dioxide 21 (21-32) mmol/L Anion Gap 9.0 (3-11) BUN 25 H (7-18) mg/dl Creatinine 0.91 (0.6-1.4) mg/dl Est Cr Clr Drug Dosing 134.9 ml/min Est GFR ( Amer) 126.1 ml/min Est GFR (Non-Af Amer) 108.8 ml/min BUN/Creatinine Ratio 27.5 H (10-20) Glucose 121 H (70-99) mg/dl Lactate (0.4-2.0) mmol/L Calcium 8.8 (8.5-10.1) mg/dl Total Bilirubin 0.8 (0.2-1) mg/dl AST 25 (15-37) U/L ALT 24 (12-78) U/L Alkaline Phosphatase 50 (45-117) U/L Total Protein 7.4 (6.4-8.2) gm/dl Albumin 2.6 L (3.4-5.0) gm/dl Globulin 4.8 H (2.5-4.0) gm/dl Albumin/Globulin Ratio 0.5 L (0.9-2) TSH 0.355 (0.300-4.500) uIu/ml Urine Color Urine Appearance (Clear) Urine pH (4.5-7.5) Ur Specific [place] (1.000-1.030) Urine Protein (Negative) Urine Glucose (UA) (Negative) Urine Ketones (Negative) Urine Blood (Negative) Urine Nitrite (Negative) Urine Bilirubin (Negative) Urine Urobilinogen (Negative) Ur Leukocyte Esterase (Negative) Salicylates < 1.7 L (2.8-20) mg/dl Urine Opiates Screen (Neg) Ur Methadone, Qual (Neg) Acetaminophen < 2 L (10-30) ug/ml Urine Barbiturates (Neg) Ur Phencyclidine (PCP) (Neg) U Amphetamin/Meth Scrn (Neg) MDMA (Ecstasy) Screen (Neg) U Benzodiazepines Scrn (Neg) Ur Cocaine Metabolite (Neg) U Marijuana (THC) Screen (Neg) Ethyl Alcohol mg/dL (0-3) mg/dl 08/08/21 08/08/21 08/08/21 Range/Units 21:07 21:07 22:24 WBC (4.8-10.8) K/uL RBC (4.7-6.1) M/uL Hgb (14.0-18.0) g/dL Hct (42-52) % MCV (80-100) fL MCH (25-34) pg MCHC (32-36) g/dL RDW Std Deviation (36.4-46.3) fL RDW Coeff of [place] (11.5-14.5) % Plt Count (130-400) K/uL MPV (7.4-10.4) fL Immature Gran % (Auto) % Neut % (Auto) % Lymph % (Auto) % [place] % (Auto) % Eos % (Auto) % Baso % (Auto) % Neut # (Auto) (1.4-6.5) K/uL Lymph # (Auto) (1.2-3.4) K/uL [place] # (Auto) (0.11-0.59) K/uL Eos # (Auto) (0-0.5) K/uL Baso # (Auto) (0-0.2) K/uL Immature Gran # (Auto) (0.00-0.02) K/uL Sodium (136-145) mmol/L Potassium (3.5-5.1) mmol/L Chloride (98-107) mmol/L Carbon Dioxide (21-32) mmol/L Anion Gap (3-11) BUN (7-18) mg/dl Creatinine (0.6-1.4) mg/dl Est Cr Clr Drug Dosing ml/min Est GFR ( Amer) ml/min Est GFR (Non-Af Amer) ml/min BUN/Creatinine Ratio (10-20) Glucose (70-99) mg/dl Lactate 1.7 (0.4-2.0) mmol/L Calcium (8.5-10.1) mg/dl Total Bilirubin (0.2-1) mg/dl AST (15-37) U/L ALT (12-78) U/L Alkaline Phosphatase (45-117) U/L Total Protein (6.4-8.2) gm/dl Albumin (3.4-5.0) gm/dl Globulin (2.5-4.0) gm/dl Albumin/Globulin Ratio (0.9-2) TSH (0.300-4.500) uIu/ml Urine Color Yellow Urine Appearance Clear (Clear) Urine pH 6.0 (4.5-7.5) Ur Specific [place] 1.027 (1.000-1.030) Urine Protein Negative (Negative) Urine Glucose (UA) Negative (Negative) Urine Ketones Negative (Negative) Urine Blood Negative (Negative) Urine Nitrite Negative (Negative) Urine Bilirubin Negative (Negative) Urine Urobilinogen Negative (Negative) Ur Leukocyte Esterase Negative (Negative) Salicylates (2.8-20) mg/dl Urine Opiates Screen (Neg) Ur Methadone, Qual (Neg) Acetaminophen (10-30) ug/ml Urine Barbiturates (Neg) Ur Phencyclidine (PCP) (Neg) U Amphetamin/Meth Scrn (Neg) MDMA (Ecstasy) Screen (Neg) U Benzodiazepines Scrn (Neg) Ur Cocaine Metabolite (Neg) U Marijuana (THC) Screen (Neg) Ethyl Alcohol mg/dL < 3.0 (0-3) mg/dl 08/08/21 Range/Units 22:24 WBC (4.8-10.8) K/uL RBC (4.7-6.1) M/uL Hgb (14.0-18.0) g/dL Hct (42-52) % MCV (80-100) fL MCH (25-34) pg MCHC (32-36) g/dL RDW Std Deviation (36.4-46.3) fL RDW Coeff of Abel (11.5-14.5) % Plt Count (130-400) K/uL MPV (7.4-10.4) fL Immature Gran % (Auto) % Neut % (Auto) % Lymph % (Auto) % [place] % (Auto) % Eos % (Auto) % Baso % (Auto) % Neut # (Auto) (1.4-6.5) K/uL Lymph # (Auto) (1.2-3.4) K/uL [place] # (Auto) (0.11-0.59) K/uL Eos # (Auto) (0-0.5) K/uL Baso # (Auto) (0-0.2) K/uL Immature Gran # (Auto) (0.00-0.02) K/uL Sodium (136-145) mmol/L Potassium (3.5-5.1) mmol/L Chloride (98-107) mmol/L Carbon Dioxide (21-32) mmol/L Anion Gap (3-11) BUN (7-18) mg/dl Creatinine (0.6-1.4) mg/dl Est Cr Clr Drug Dosing ml/min Est GFR ( Amer) ml/min Est GFR (Non-Af Amer) ml/min BUN/Creatinine Ratio (10-20) Glucose (70-99) mg/dl Lactate (0.4-2.0) mmol/L Calcium (8.5-10.1) mg/dl Total Bilirubin (0.2-1) mg/dl AST (15-37) U/L ALT (12-78) U/L Alkaline Phosphatase (45-117) U/L Total Protein (6.4-8.2) gm/dl Albumin (3.4-5.0) gm/dl Globulin (2.5-4.0) gm/dl Albumin/Globulin Ratio (0.9-2) TSH (0.300-4.500) uIu/ml Urine Color Urine Appearance (Clear) Urine pH (4.5-7.5) Ur Specific [place] (1.000-1.030) Urine Protein (Negative) Urine Glucose (UA) (Negative) Urine Ketones (Negative) Urine Blood (Negative) Urine Nitrite (Negative) Urine Bilirubin (Negative) Urine Urobilinogen (Negative) Ur Leukocyte Esterase (Negative) Salicylates (2.8-20) mg/dl Urine Opiates Screen Neg (Neg) Ur Methadone, Qual Neg (Neg) Acetaminophen (10-30) ug/ml Urine Barbiturates Neg (Neg) Ur Phencyclidine (PCP) Neg (Neg) U Amphetamin/Meth Scrn Neg (Neg) MDMA (Ecstasy) Screen Neg (Neg) U Benzodiazepines Scrn Neg (Neg) Ur Cocaine Metabolite Neg (Neg) U Marijuana (THC) Screen Neg (Neg) Ethyl Alcohol mg/dL (0-3) mg/dl Administered Medications Discontinued Medications Ondansetron HCl (Ondansetron Inj 2 Mg/Ml 2 Ml Vial) 4 mg IV NOW STA Stop: 08/08/21 22:15 Last Admin: 08/08/21 22:19 Dose: 4 mg Documented by: [id number] Discharge Plan Visit Data Chief Complaint: Medical Clearance Stated Complaint: MEDICAL CLEARANCE ED Provider: Jordan Marie Discharge Problem: Meningitis Forms Stand Alone Forms: [facility] [employer] Prescriptions Prescriptions: No Action No Known Home Medications RF: 0 Referrals Referrals: [facility] [Primary Care Provider] -
[2021-08-08 21:22] LABS: Basophils # (auto) 0.02 K/uL (0-0.2); Basophils % (auto) 0.1 %; Hematocrit (blood only) 39.1 % (42-52); Hemoglobin 13.9 g/dL (14.0-18.0); Immature Granulocytes # (auto) 0.21 K/uL (0.00-0.02); Immature Granulocytes % (auto) 1.2 %; Lymphocytes # (auto) 1.77 K/uL (1.2-3.4); Lymphocytes % (auto) 10.3 %; Mean Corpuscular Hemoglobin 28.4 pg (25-34); Mean Corpuscular Hgb Conc 35.5 g/dL (32-36); Mean Platelet Volume 9.2 fL (7.4-10.4); Monocytes # (auto) 1.26 K/uL (0.11-0.59); Monocytes % (auto) 7.3 %; Neutrophils # (auto) 13.94 K/uL (1.4-6.5); Neutrophils % (auto) 81.1 %; Platelet Count 266 K/uL (130-400); RDW Coefficient of Variation 14.2 % (11.5-14.5); RDW Standard Deviation 41.5 fL (36.4-46.3); Red Blood Count 4.89 M/uL (4.7-6.1)
[2021-08-08 22:01] LABS: Acetaminophen < 2 ug/ml (10-30); Salicylate < 1.7 mg/dl (2.8-20)
[2021-08-08] MEDS ORDERED: ONDANSETRON INJ 2 MG/ML 2 ML VIAL IV STA (22:14)
[2021-08-08 22:37] LABS: Albumin Globulin Ratio 0.5 (0.9-2); Albumin Level 2.6 gm/dl (3.4-5.0); BUN Creatinine Ratio 27.5 (10-20); Bilirubin,Total 0.8 mg/dl (0.2-1); Calcium 8.8 mg/dl (8.5-10.1); Creatinine Clr Calc Pharmacy 134.9 ml/min; Est GFR (African American) 126.1 ml/min; Est GFR (Non-African American) 108.8 ml/min; Globulin 4.8 gm/dl (2.5-4.0); Potassium 2.8 mmol/L (3.5-5.1); Thyroid Stimulating Hormone 0.355 uIu/ml (0.300-4.500); Total Protein 7.4 gm/dl (6.4-8.2)
[2021-08-08 22:49] LABS: Appearance Urine Clear (Clear); Bilirubin Urine Negative (Negative); Blood Urine Negative (Negative); Color Urine Yellow; Glucose Urine UA Negative (Negative); Ketones Urine Negative (Negative); Leukocyte Esterase Urine Negative (Negative); Nitrite Urine Negative (Negative); Protein Urine Negative (Negative); Specific Gravity Urine 1.027 (1.000-1.030); Urobilinogen Urine Negative (Negative)
[2021-08-08] MEDS ORDERED: VANCOMYCIN CONSULT ACTIVE PRN (23:04)
[2021-08-08] MEDS ORDERED: VANCOMYCIN HCL 1,500 MG in SODIUM CHLORIDE 0.9% 500 ML IV SCH (23:15)
[2021-08-08] MEDS ORDERED: POTASSIUM CHLORIDE CRTAB 20 MEQ TABCR PO STA (23:20)
[2021-08-08 23:27] LABS: Amphetamines+Metham, Urine Neg (Neg); Barbiturates, Urine Neg (Neg); Benzodiazepine, Urine Neg (Neg); Cocaine, Urine Neg (Neg); MDMA (Ecstacy), Urine Neg (Neg); Methadone, Urine Neg (Neg); Opiate, Urine Neg (Neg); Phencyclidine, Urine Neg (Neg)
[2021-08-08 23:50] LABS: Magnesium 2.5 mg/dl (1.8-2.4)
[2021-08-08] MEDS: cefTRIAXone SODIUM 1,000 MG/50 ML BAG IV STA (23:58)
[2021-08-08] MEDS: POTASSIUM CHLORIDE 40 MEQ in SODIUM CHLORIDE 0.45 % 1,000 ML IV STA (23:59)
[2021-08-09] MEDS ORDERED: LINEZOLID 600 MG TAB PO SCH
[2021-08-09] MEDS ORDERED: NICOTINE 21 MG/24 HR TDSY TD STA (00:02)
--- NOTE | 2021-08-09 00:09 | History & Physical Report ---
Date of Service August 09, 2021 Assessment & Plan (1) Sepsis: Plan: Secondary to partially treated Strep pneumoniae bacterial meningitis Hypokalemia secondary to diarrhea rule out C. difficile colitis given antibiotic Rx Leg pain secondary to hypokalemia rule out DVT Ongoing tobacco abuse Medical telemetry Vancomycin, Ceftriaxone Touch base with [facility] for further recommendations about antibiotic Rx Replace potassium Stool C. difficile CT abdomen pelvis RE abdominal pain with diarrhea rule out colitis LE venous Doppler showed no DVT Nicotine patch DVT prophylaxis. Lovenox subcu Full code Text document was generated using [email or web address] voice recognition software. It may contain grammatical or spelling errors. Kindly contact undersigned for clarification of any documentation item in question. History of Present Illness Chief Complaint: Not feeling well Primary Care Provider: None History obtained from patient and records. Medical history significant for ongoing tobacco abuse. Recent confinement August 04-2020 for Strep pneumoniae meningitis secondary to bilateral otitis media status post myringotomy. Patient received Vancomycin and Ceftriaxone Rx, completed Decadron course as per [facility] recommendations. Patient signed out AGAINST MEDICAL ADVICE yesterday because he wanted to pursue his girlfriend who broke up with him. Yesterday afternoon, patient noted achy headache/neck pain (not worse than prior to confinement as per patient) and increased left ear drainage. Patient denies chest pain, cough, S OB. Achy abdominal pain all over with watery diarrhea. Police called on patient due to aggression at mother's place of employment. Legs achy as per patient. Patient brought to the ER for medical clearance. IV Vancomycin and ceftriaxone given at the ER. Medical History as above Surgical History : None Family History : Unknown to patient Personal/Social history : 1.5 packs daily, no EtOH intake, currently unemployed Allergies Allergy/AdvReac Type Severity Reaction Status Date / Time No Known Allergies Allergy Verified 08/08/21 23:36 Home Medications Medication Instructions Recorded Confirmed Type No Known Home Medications 08/08/21 08/08/21 History Past Med/Surg History Medical History Intellectual disability Surgical History No significant past surgical history Social History Smoking Status: Current every day smoker Tobacco Type: Cigarettes Hx Alcohol Use: No Hx Substance Use: Yes Preferred Language: Nepali Communication Ability: Effective 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 Beliefs That Will Affect Care: None Current Living Situation: Family Other Information That Helps Us Care for You: No Feels Safe at Home: Yes Assistive Devices: Denture - Upper and Denture - Lower Review of Systems Review of Systems: As per HPI, all 10 systems reviewed, all other ROS negative Physical Exam Physical Exam: GENERAL: Slightly uncomfortable, no respiratory distress, obese SKIN: Normal color, warm HEENT: [place] palpebral conjunctivae, no ptosis, dry buccal mucosa; retained cerumen, right ear white drainage from left ear, TM not fully visualized NECK : Supple, no tenderness CHEST : CTA, no tenderness HEART : Bradycardic, no obvious murmurs ABDOMEN: Some distention, nontender EXTREMITIES : No LE swelling/tenderness, no other conspicuous deformities noted NEUROLOGIC : Coherent, no facial asymmetry, no other gross focality Results & Data Results & Data ([facility]) Vital Signs (Past 12 Hours) Vital Signs Temp Pulse Pulse Resp BP BP Pulse Ox 08/08/21 21:12 55 L 20 121/76 99 08/08/21 17:31 36.6 C 60 18 129/83 98 Laboratory Results Laboratory Results WBC 17.20 K/uL (4.8-10.8) H 08/08/21 21:07 RBC 4.89 M/uL (4.7-6.1) 08/08/21 21:07 Hgb 13.9 g/dL (14.0-18.0) L 08/08/21 21:07 Hct 39.1 % (42-52) L 08/08/21 21:07 MCV 80.0 fL (80-100) 08/08/21 21:07 MCH 28.4 pg (25-34) 08/08/21 21:07 MCHC 35.5 g/dL (32-36) 08/08/21 21:07 RDW Std Deviation 41.5 fL (36.4-46.3) 08/08/21 21:07 RDW Coeff of Abel 14.2 % (11.5-14.5) 08/08/21 21:07 Plt Count 266 K/uL (130-400) 08/08/21 21:07 MPV 9.2 fL (7.4-10.4) 08/08/21 21:07 Immature Gran % (Auto) 1.2 % 08/08/21 21:07 Neut % (Auto) 81.1 % 08/08/21 21:07 Lymph % (Auto) 10.3 % 08/08/21 21:07 [place] % (Auto) 7.3 % 08/08/21 21:07 Eos % (Auto) 0.0 % 08/08/21 21:07 Baso % (Auto) 0.1 % 08/08/21 21:07 Neut # (Auto) 13.94 K/uL (1.4-6.5) H 08/08/21 21:07 Lymph # (Auto) 1.77 K/uL (1.2-3.4) 08/08/21 21:07 [place] # (Auto) 1.26 K/uL (0.11-0.59) H 08/08/21 21:07 Eos # (Auto) 0.00 K/uL (0-0.5) 08/08/21 21:07 Baso # (Auto) 0.02 K/uL (0-0.2) 08/08/21 21:07 Immature Gran # (Auto) 0.21 K/uL (0.00-0.02) H 08/08/21 21:07 Sodium 144 mmol/L (136-145) 08/08/21 21:07 Potassium 2.8 mmol/L (3.5-5.1) L D 08/08/21 21:07 Chloride 114 mmol/L (98-107) H 08/08/21 21:07 Carbon Dioxide 21 mmol/L (21-32) 08/08/21 21:07 Anion Gap 9.0 (3-11) 08/08/21 21:07 BUN 25 mg/dl (7-18) H 08/08/21 21:07 Creatinine 0.91 mg/dl (0.6-1.4) 08/08/21 21:07 Est Cr Clr Drug Dosing 134.9 ml/min 08/08/21 21:07 Est GFR ( Amer) 126.1 ml/min 08/08/21 21:07 Est GFR (Non-Af Amer) 108.8 ml/min 08/08/21 21:07 BUN/Creatinine Ratio 27.5 (10-20) H 08/08/21 21:07 Glucose 121 mg/dl (70-99) H 08/08/21 21:07 Lactate 1.7 mmol/L (0.4-2.0) 08/08/21 21:07 Calcium 8.8 mg/dl (8.5-10.1) 08/08/21 21:07 Magnesium 2.5 mg/dl (1.8-2.4) H 08/08/21 21:07 Total Bilirubin 0.8 mg/dl (0.2-1) 08/08/21 21:07 AST 25 U/L (15-37) 08/08/21 21:07 ALT 24 U/L (12-78) 08/08/21 21:07 Alkaline Phosphatase 50 U/L (45-117) 08/08/21 21:07 Total Protein 7.4 gm/dl (6.4-8.2) 08/08/21 21:07 Albumin 2.6 gm/dl (3.4-5.0) L 08/08/21 21:07 Globulin 4.8 gm/dl (2.5-4.0) H 08/08/21 21:07 Albumin/Globulin Ratio 0.5 (0.9-2) L 08/08/21 21:07 TSH 0.355 uIu/ml (0.300-4.500) 08/08/21 21:07 Urine Color Yellow 08/08/21 22:24 Urine Appearance Clear (Clear) 08/08/21 22:24 Urine pH 6.0 (4.5-7.5) 08/08/21 22:24 Ur Specific [place] 1.027 (1.000-1.030) 08/08/21 22:24 Urine Protein Negative (Negative) 08/08/21 22:24 Urine Glucose (UA) Negative (Negative) 08/08/21 22:24 Urine Ketones Negative (Negative) 08/08/21 22:24 Urine Blood Negative (Negative) 08/08/21 22:24 Urine Nitrite Negative (Negative) 08/08/21 22:24 Urine Bilirubin Negative (Negative) 08/08/21 22:24 Urine Urobilinogen Negative (Negative) 08/08/21 22:24 Ur Leukocyte Esterase Negative (Negative) 08/08/21 22:24 Salicylates < 1.7 mg/dl (2.8-20) L 08/08/21 21:07 Urine Opiates Screen Neg (Neg) 08/08/21 22:24 Ur Methadone, Qual Neg (Neg) 08/08/21 22:24 Acetaminophen < 2 ug/ml (10-30) L 08/08/21 21:07 Urine Barbiturates Neg (Neg) 08/08/21 22:24 Ur Phencyclidine (PCP) Neg (Neg) 08/08/21 22:24 U Amphetamin/Meth Scrn Neg (Neg) 08/08/21 22:24 MDMA (Ecstasy) Screen Neg (Neg) 08/08/21 22:24 U Benzodiazepines Scrn Neg (Neg) 08/08/21 22:24 Ur Cocaine Metabolite Neg (Neg) 08/08/21 22:24 U Marijuana (THC) Screen Neg (Neg) 08/08/21 22:24 Ethyl Alcohol mg/dL < 3.0 mg/dl (0-3) 08/08/21 21:[address] abdomen pelvis initial read:
[2021-08-09] MEDS ORDERED: cefTRIAXone SODIUM 1,000 MG/50 ML BAG IV STA (00:24)
[2021-08-09] MEDS ORDERED: ACETAMINOPHEN 325 MG TAB PO PRN (00:27)
[2021-08-09] MEDS ORDERED: IBUPROFEN 200 MG TAB PO PRN (00:27)
[2021-08-09] MEDS ORDERED: KETOROLAC TROMETHAMINE 15 MG/ML VIAL IV PRN (00:27)
[2021-08-09] MEDS: cefTRIAXone SODIUM 1,000 MG/50 ML BAG IV STA (01:05)
[2021-08-09] MEDS: POTASSIUM CHLORIDE 40 MEQ in SODIUM CHLORIDE 0.45 % 1,000 ML IV STA (01:06)
[2021-08-09] MEDS ORDERED: POTASSIUM CHLORIDE CRTAB 20 MEQ TABCR PO ONE (02:00)
[2021-08-09] MEDS ORDERED: OPTIRAY 320 100ml IV ONE (02:15)
[2021-08-09] MEDS ORDERED: PROMETHAZINE 12.5 MG/50.5 ML NSS IV ONE (02:32)
[2021-08-09] MEDS ORDERED: LORazepam 0.5 MG/1 ML VIAL IV PRN (03:34)
[2021-08-09] MEDS ORDERED: PROMETHAZINE HCL 12.5 MG in SODIUM CHLORIDE 0.9% 50 ML IV PRN (03:34)
[2021-08-09] MEDS ORDERED: VANCOMYCIN HCL 2,500 MG in SODIUM CHLORIDE 0.9% 500 ML IV ONE (04:00)
[2021-08-09 05:37] LABS: Basophils # (auto) 0.02 K/uL (0-0.2); Basophils % (auto) 0.1 %; Hematocrit (blood only) 37.4 % (42-52); Hemoglobin 13.2 g/dL (14.0-18.0); Immature Granulocytes % (auto) 1.3 %; Lymphocytes # (auto) 2.45 K/uL (1.2-3.4); Mean Corpuscular Hemoglobin 28.4 pg (25-34); Mean Corpuscular Hgb Conc 35.3 g/dL (32-36); Mean Corpuscular Volume 80.4 fL (80-100); Mean Platelet Volume 8.8 fL (7.4-10.4); Monocytes # (auto) 1.42 K/uL (0.11-0.59); Monocytes % (auto) 9.3 %; Neutrophils # (auto) 11.18 K/uL (1.4-6.5); Neutrophils % (auto) 73.3 %; Platelet Count 221 K/uL (130-400); RDW Coefficient of Variation 14.2 % (11.5-14.5); RDW Standard Deviation 41.4 fL (36.4-46.3); Red Blood Count 4.65 M/uL (4.7-6.1); White Blood Count 15.27 K/uL (4.8-10.8)
[2021-08-09 06:08] LABS: Albumin Globulin Ratio 0.5 (0.9-2); Albumin Level 2.2 gm/dl (3.4-5.0); BUN Creatinine Ratio 28.7 (10-20); Bilirubin,Total 0.8 mg/dl (0.2-1); Calcium 8.3 mg/dl (8.5-10.1); Creatinine Clr Calc Pharmacy 149.7 ml/min; Est GFR (African American) 132.8 ml/min; Est GFR (Non-African American) 114.6 ml/min; Globulin 4.4 gm/dl (2.5-4.0); Potassium 3.4 mmol/L (3.5-5.1); Total Protein 6.6 gm/dl (6.4-8.2)
--- NOTE | 2021-08-09 06:46 | CT Scan Report ---
CT OF THE ABDOMEN AND PELVIS WITH CONTRAST CLINICAL HISTORY: Abdominal pain. COMPARISON STUDY: None. TECHNIQUE: Following IV administration of 93 mL of Optiray, axial images of the abdomen and pelvis we re obtained from the lung bases to the proximal femurs. Images were reviewed in the axial, sagittal, and coronal planes. IV contrast was administered without complication. Automated exposure control wa s utilized for the study. A dose lowering technique was utilized adhering to the principles of ALARA . CT DOSE: 872.91 mGy.cm FINDINGS: Lung bases are unremarkable. No pneumatosis, free air or portal venous gas is present. The liver, spleen, adrenal glands, right kidney and pancreas are unremarkable. There is no biliary or heath creatic ductal dilatation. There is a calcification along the wall of the gallbladder. There is no ev idence for acute cholecystitis. Note is made of a 2.2 cm hypodense lesion within the upper pole of th e left kidney. This contains a 5 mm calcification. There is adjacent perinephric stranding and fluid. There is no hydronephrosis. No ureteral calculi are present. The caliber and wall thickness of small and large bowel are normal. Appendix is normal. There is no evidence for a bowel obstruction. Major vasculature is patent. No lymphadenopathy. No acute fracture or suspicious lesion is identified withi n visualized skeletal structures. IMPRESSION: 2.2 cm hypodense lesion within the upper pole of the left kidney with adjacent perinephr ic fluid and stranding. This contains a 5 mm calcification. The lesion may reflect a cyst or calyceal diverticulum with superimposed infection. The findings favor an infectious process and this may refl ect a renal abscess. No hydronephrosis. No ureteral calculi. Follow-up CT in 3 months to ensure resol ution is recommended. ACT 112: Negative or not required by law. Electronically signed by: Arjun Jeffries M.D. 08/09/2021 6:44 AM
[2021-08-09] MEDS ORDERED: NICOTINE 21 MG/24 HR TDSY TD SCH (09:00)
[2021-08-09] MEDS ORDERED: ENOXAPARIN INJ 40 MG/0.4 ML SYR SQ SCH (09:00)
--- NOTE | 2021-08-09 09:00 | Ultrasound Report ---
BILATERAL LOWER EXTREMITY VENOUS DOPPLER CLINICAL HISTORY: Bilateral leg pain. COMPARISON STUDY: No previous studies for comparison. TECHNIQUE: Sonography of the deep venous system of the bilateral lower extremities was performed. Co mpression and augmentation were evaluated. FINDINGS: The bilateral common femoral, superficial femoral and popliteal veins were compressible. A ugmentation was normal. Flow was shown within the deep calf vessels. IMPRESSION: No evidence of deep venous thrombus within the bilateral lower extremities. ACT 112: Negative or not required by law. Electronically signed by: Arjun Jeffries M.D. 08/09/2021 8:59 AM
[2021-08-09] MEDS ORDERED: LINEZOLID CONSULT ACTIVE PRN (11:52)
[2021-08-09] MEDS ORDERED: cefTRIAXone SODIUM 2,000 MG in DEXTROSE 5% 50 ML IV SCH (13:00)
--- NOTE | 2021-08-09 20:07 | Hospitalist Progress Note ---
Date of Service August 09, 2021 delayed entry date of service noted above Assessment & Plan (1) Sepsis: Plan: (1) Meningitis: Severe Sepsis with Encephalopathy secondary to Acute Bacterial Meningitis, Strep pneumoniae Bilateral Otitis Media Urinary Tract Infection E coli, Possible Renal abscess - CSF studies: bacterial meningitis, Strep pneumo detected by PCR - Blood culture negative Urine culture: E coli sens to Ceftriaxone Ear effusion Culture negative CSF culture negative - given Vanco + Ceftri + Decadron IV per [facility] ID recommendations - 08/05 s/p Myringotomy - patient had to receive several days Precedex, Zyprexa and Ativan due to agitation and combativeness mental status gradually improved, subsequently became oriented x 3 - ID consulted- recommend possible Immunodeficiency studies ENT on board as well- will need ff up with ENT in 1-2 weeeks - fever improved leukocytosis mental status improved, oriented x 3 - 08/08 patient became very aggressive and confrontational to medical staff left against medical advice written prescription for Omnicef + Levaquin - 08/09 brought back to the ER by Police as patient was apparently violent and trespassed in his mother's work place patient to be taken to custody at [facility] coordinated with Verónica Enamorado, ENT Dr. Rodriguez, Pharmacist Latisha, Financial Services Rep, Vocational Psychologist, [facility]irm[facility] RN and Plaster Machine Operator Annalisa - case discussed in detail Discharge instructions given: Patient needs to complete 10 days course of vancomycin and ceftriaxone for acute bacterial meningitis-strep pneumoniae. Pharmacy consultation for vancomycin daily dosing is required. For today, please give linezolid 600 mg in the evening (while waiting for IV antibiotics to start tomorrow August 10, 2021) Starting tomorrow August 10, 2021, please check vancomycin level and dose vancomycin for acute meningitis accordingly. (Patient is on vancomycin 1750 mg every 8 hours yesterday.) Please also give ceftriaxone 2 g IV every 12 hours. Patient to complete 10-day course of vancomycin and ceftriaxone to complete 14-day course which includes order was given during hospitalization. If patient is to be discharged prior to completion of 10-day course of vancomycin and ceftriaxone, please prescribe linezolid 600 mg twice a day and cefdinir 300 mg twice a day to complete the 10-day course of antibiotic treatment for acute bacterial meningitis and E. coli UTI. It is very important for patient to follow-up with [facility] physicians group ENT Dr. Solano for otitis media and chronic ear infection in 1 week. Please arrange for follow up. Possible renal abscess seen on CT abdomen: 2.2 cm hypodense lesion within the upper pole of the left kidney with adjacent perinephric fluid and stranding. This contains a 5 mm calcification. The lesion may reflect a cyst or calyceal diverticulum with superimposed infection. The findings favor an infectious process and this may reflect a renal abscess. No hydronephrosis. No ureteral calculi. Follow-up CT in 3 months to ensure resolution is recommended. -- recommend to repeat CT abdomen/pelvis in 10 days after completing antibiotic course to ff up possible renal abscess (2) Acute respiratory distress: - off Bipap (3) Lyme disease: - Positive IgM on titre, negative IgM - follow up Lyme western blot (4) Headache: - As above. (5) Acute effusion of both middle ears: per #1 (6) Intellectual disability: - patient's mother called in and stated patient has no intellectual disability - reports she read on patient's cellphone regarding "heroin" Admission and Anticipated Discharge Date Admission Date: August 09, 2021 Subjective ff up for acute meningitis, etc informed that patient is to be taken in custody at [facility] seen with security personnel at bedside throughout whole encounter resting in bed, comfortable, oriented x 3 calm, cooperative has mild headache no chest pain, dyspnea, palpitations, dizziness no ear pin no chills no abdominal pain, nausea/vomiting no other problems/symptoms states he is willing to have PICC line and continue IV antbiotics at [facility] Review of Systems Review of Systems: all noted and negative except for above Physical Exam Physical Exam: General- oriented x 3, not in distress, speaks in sentences with no effort or accessory muscle use Head- atraumatic Eyes- PERRL, EOMI, anicteric no discharge ENT- oropharynx clear Neck- supple, no JVD, no adenopathy, no thyromegaly; carotids +2/2, no bruits appreciated Lungs- clear to auscultation bilaterally, no rales/wheezes Heart- normal rate, regular rhythm; no murmur, no gallop, no rub appreciated Abdomen- normal bowel sounds, nondistended, soft, nontender, no masses or hepatosplenomegaly Extremities- no pretibial edema, no calf tenderness; peripheral pulses intact Neuro- alert, oriented x 3; CN 2-12 grossly intact; motor 5/5 bilaterally;sensation 100% on all extremities; no other gross focal neurologic deficits Skin- warm & dry Results & Data Results & Data ([facility]) Vital Signs (Past 12 Hours) Vital Signs Temp Pulse Resp BP Pulse Ox 08/09/21 11:54 37 C 64 18 133/78 98 all noted and reviewed including below
[2021-08-09] MEDS ORDERED: LINEZOLID 600 MG TAB PO ONE (21:00)
[2021-08-10] MEDS ORDERED: cefTRIAXone SODIUM 2,000 MG in DEXTROSE 5% 50 ML IV SCH
--- NOTE | 2021-08-10 17:39 | Discharge Summary ---
Date of Service August 10, 2021 Admission HPI Per Admitting Provider Chief Complaint: Not feeling well Primary Care Provider: None History obtained from patient and records. Medical history significant for ongoing tobacco abuse. Recent confinement August 042020 for Strep pneumoniae meningitis secondary to bilateral otitis media status post myringotomy. Patient received Vancomycin and Ceftriaxone Rx, completed Decadron course as per [facility] recommendations. Patient signed out AGAINST MEDICAL ADVICE yesterday because he wanted to pursue his girlfriend who broke up with him. Yesterday afternoon, patient noted achy headache/neck pain (not worse than prior to confinement as per patient) and increased left ear drainage. Patient denies chest pain, cough, S OB. Achy abdominal pain all over with watery diarrhea. Police called on patient due to aggression at mother's place of employment. Legs achy as per patient. Patient brought to the ER for medical clearance. IV Vancomycin and ceftriaxone given at the ER. Admission Exam (Per Admitting) Constitutional GENERAL: Slightly uncomfortable, no respiratory distress, obese SKIN: Normal color, warm HEENT: Sharpes palpebral conjunctivae, no ptosis, dry buccal mucosa; retained cerumen, right ear white drainage from left ear, TM not fully visualized NECK : Supple, no tenderness CHEST : CTA, no tenderness HEART : Bradycardic, no obvious murmurs ABDOMEN: Some distention, nontender EXTREMITIES : No LE swelling/tenderness, no other conspicuous deformities noted NEUROLOGIC : Coherent, no facial asymmetry, no other gross focality Discharge Data Consultations 08/08/21 23:11 ED Decision to Admit Stat 08/09/21 08:17 Consult Infectious Diseases Routine Consult Otolaryngology (Head and Neck) Routine Procedures Performed CT OF THE ABDOMEN AND PELVIS WITH CONTRAST CLINICAL HISTORY: Abdominal pain. COMPARISON STUDY: None. TECHNIQUE: Following IV administration of 93 mL of Optiray, axial images of the abdomen and pelvis were obtained from the lung bases to the proximal femurs. Images were reviewed in the axial, sagittal, and coronal planes. IV contrast was administered without complication. Automated exposure control was utilized for the study. A dose lowering technique was utilized adhering to the principles of ALARA. CT DOSE: 872.91 mGy.cm FINDINGS: Lung bases are unremarkable. No pneumatosis, free air or portal venous gas is present. The liver, spleen, adrenal glands, right kidney and pancreas are unremarkable. There is no biliary or pancreatic ductal dilatation. There is a calcification along the wall of the gallbladder. There is no evidence for acute cholecystitis. Note is made of a 2.2 cm hypodense lesion within the upper pole of the left kidney. This contains a 5 mm calcification. There is adjacent perinephric stranding and fluid. There is no hydronephrosis. No ureteral calculi are present. The caliber and wall thickness of small and large bowel are normal. Appendix is normal. There is no evidence for a bowel obstruction. Major vasculature is patent. No lymphadenopathy. No acute fracture or suspicious lesion is identified within visualized skeletal structures. IMPRESSION: 2.2 cm hypodense lesion within the upper pole of the left kidney with adjacent perinephric fluid and stranding. This contains a 5 mm calcification. The lesion may reflect a cyst or calyceal diverticulum with superimposed infection. The findings favor an infectious process and this may reflect a renal abscess. No hydronephrosis. No ureteral calculi. Follow-up CT in 3 months to ensure resolution is recommended. ACT 112: Negative or not required by law. Hospital Course (1) Sepsis: (1) Meningitis: Severe Sepsis with Encephalopathy secondary to Acute Bacterial Meningitis, Strep pneumoniae Bilateral Otitis Media Urinary Tract Infection E coli, Possible Renal abscess - CSF studies: bacterial meningitis, Strep pneumo detected by PCR - Blood culture negative Urine culture: E coli sens to Ceftriaxone Ear effusion Culture negative CSF culture negative - given Vanco + Ceftri + Decadron IV per [facility] ID recommendations - 08/05 s/p Myringotomy - patient had to receive several days Precedex, Zyprexa and Ativan due to agitation and combativeness mental status gradually improved, subsequently became oriented x 3 - ID consulted- recommend possible Immunodeficiency studies ENT on board as well- will need ff up with ENT in 1-2 weeeks - fever improved leukocytosis mental status improved, oriented x 3 - 08/08 patient became very aggressive and confrontational to medical staff left against medical advice written prescription for Omnicef + Levaquin - 08/09 brought back to the ER by Police as patient was apparently violent and trespassed in his mother's work place patient to be taken to custody at [facility] coordinated with [facility] ID Dr. Enamorado, ENT Dr. Rodriguez, Pharm acist Latisha, Forestry Consultant, Addictions Recovery Specialist, [facility] RN and Offset Press Operator Apprentice Annalisa - case discussed in detail Discharge instructions given: Patient needs to complete 10 days course of vancomycin and ceftriaxone for acute bacterial meningitis-strep pneumoniae. Pharmacy consultation for vancomycin daily dosing is required. For today, please give linezolid 600 mg in the evening (while waiting for IV antibiotics to start tomorrow August 10, 2021) Starting tomorrow August 10, 2021, please check vancomycin level and dose vancomycin for acute meningitis accordingly. (Patient is on vancomycin 1750 mg every 8 hours yesterday.) Please also give ceftriaxone 2 g IV every 12 hours. Patient to complete 10-day course of vancomycin and ceftriaxone to complete 14-day course which includes order was given during hospitalization. If patient is to be discharged prior to completion of 10-day course of vancomycin and ceftriaxone, please prescribe linezolid 600 mg twice a day and cefdinir 300 mg twice a day to complete the 10-day course of antibiotic treatment for acute bacterial meningitis and E. coli UTI. It is very important for patient to follow-up with [facility] physicians group ENT Dr. Solano for otitis media and chronic ear infection in 1 week. Please arrange for follow up. Possible renal abscess seen on CT abdomen: 2.2 cm hypodense lesion within the upper pole of the left kidney with adjacent perinephric fluid and stranding. This contains a 5 mm calcification. The lesion may reflect a cyst or calyceal diverticulum with superimposed infection. The findings favor an infectious process and this may reflect a renal abscess. No hydronephrosis. No ureteral calculi. Follow-up CT in 3 months to ensure resolution is recommended. -- recommend to repeat CT abdomen/pelvis in 10 days after completing antibiotic course to ff up possible renal abscess (2) Acute respiratory distress: - off Bipap (3) Lyme disease: - Positive IgM on titre, negative IgM - follow up Lyme western blot (4) Headache: - As above. (5) Acute effusion of both middle ears: per #1 (6) Intellectual disability: - patient's mother called in and stated patient has no intellectual disability - reports she read on patient's cellphone regarding "heroin"
== END 2021-08-09 19:02 | DRG 871 ==
LOC: ED 17:03 → EDINP 08-09 00:24 → INTOOBSV 08-09 00:24 → SUATTDRO 08-09 00:24 → EDINP 08-09 03:33
DX: F17.210 Nicotine dependence, cigarettes, uncomplicated; R06.03 Acute respiratory distress; E87.6 Hypokalemia; A41.9 Sepsis, unspecified organism; N39.0 Urinary tract infection, site not specified; B96.20 Unspecified Escherichia coli [E. coli] as the cause of diseases classified elsewhere; A69.20 Lyme disease, unspecified; G00.2 Streptococcal meningitis; G93.40 Encephalopathy, unspecified; F79 Unspecified intellectual disabilities; R65.20 Severe sepsis without septic shock